=== PATIENT | male | born 1955 | race Caucasian/White ===

== ENCOUNTER 2016-07-31 19:00 | Inpatient (IN) | payer OTHER, MEDICARE ==
[~2016-07-31] VITALS: Ht 188 cm; Wt 106.8 kg
[2016-07-31 19:06] VITALS: BP 135/87; PULSE 107; RESP 22; TEMP 97.9; O2SAT 96
[2016-07-31 19:15] VITALS: O2SAT 94
[2016-07-31] MEDS ORDERED: SODIUM CHLORIDE 0.9% FLUSH 5 ML FLUSH IVF PRN (19:15)
[2016-07-31] MEDS: RESP: ALBUTEROL 2.5 MG/IPRATROPIUM 0.5 MG NEB (SCH) INH (19:36)
--- NOTE | 2016-07-31 19:47 | RADRPT ---
EXAM DATE/TIME: 07/31/2016 19:25 [place] COMPARISON: No previous studies available for comparison. INDICATIONS : Cough and congestion for several days. MEDICAL HISTORY : None. SURGICAL HISTORY : None. ENCOUNTER: Initial ACUITY: 3 days PAIN SCORE: 5/10 LOCATION: Bilateral chest FINDINGS: A single view of the chest demonstrates bibasilar infiltrates. Heart normal in size. The cardiomedias tinal contours are unremarkable. Osseous structures are intact. Bullous changes in the right upper l obe. CONCLUSION: Bibasilar infiltrates. Ralf Hernandes MD on July 31, 2016 at 19:44 Board Certified Radiologist. This report was verified electronically.
[2016-07-31 19:50] LABS: BLOOD GAS BASE EXCESS -4.3 mmol/L (-2-2); BLOOD GAS CARBOXYHEMOGLOBIN 1.9 % (0-4); BLOOD GAS HCO3 20 mmol/L (22-26); BLOOD GAS METHEMOGLOBIN 0.8 % (0-2); BLOOD GAS O2 HGB SATURATION 89 % (90-100); BLOOD GAS OXYGEN CONTENT 20.7 Vol % (12.0-20.0); BLOOD GAS PCO2 37 mmHg (38-42); BLOOD GAS PO2 70 mmHg (61-120); BLOOD GAS TOTAL HGB 16.6 G/DL (12.0-16.0); CRITICAL VALUE YES; DRAW SITE RT RADIAL; LITER FLOW 2 L/M; NUMBER OF ARTERIAL PUNCTURES 1; OXYGEN DEVICE NASAL CANNULA; STAT YES; TEMP CORR TO 98.6; ULNAR PULSE PRESENT
[2016-07-31 19:51] LABS: AUTOMATED NEUTROPHIL # 6.5 TH/MM3 (1.8-7.7); BASOPHIL # 0.2 TH/MM3 (0-0.2); BASOPHIL % 0.9 % (0.0-2.0); EOSINOPHIL # 2.2 TH/MM3 (0-0.4); LYMPHOCYTE # 6.2 TH/MM3 (1.0-4.8); MEAN CELL VOLUME 96.1 FL (80.0-100.0); MEAN CORPUSCULAR HEMOGLOBIN 32.5 PG (27.0-34.0); MEAN CORPUSCULAR HGB CONC 33.9 % (32.0-36.0); MONO % 10.3 % (0.0-8.0); NEUT % 38.8 % (16.0-70.0); PLATELET COUNT 282 TH/MM3 (150-450); RED CELL DISTRIBUTION WIDTH 13.7 % (11.6-17.2); WHITE BLOOD COUNT 16.8 TH/MM3 (4.0-11.0)
[2016-07-31 19:52] LABS: HEMO FLAGS AUTO DIFF
[2016-07-31 20:01] LABS: PROTHROMBIN TIME - PATIENT 10.5 SEC (9.8-11.6)
[2016-07-31 20:37] LABS: ANION GAP 10 MEQ/L (5-15); BICARBONATE 24.5 MEQ/L (21.0-32.0); BLOOD UREA NITROGEN 11 MG/DL (7-18); CHLORIDE 107 MEQ/L (98-107); GLOMERULAR FILTRATION RATE 68 ML/MIN (>89); MAGNESIUM 2.7 MG/DL (1.5-2.5); POTASSIUM 3.8 MEQ/L (3.5-5.1); SODIUM (NA) 141 MEQ/L (136-145)
[2016-07-31 20:38] LABS: BANDS 4 % (0-6); BASOPHILS 1 % (0-2); EOSINOPHILS 18 % (0-4); METAMYELOCYTES 1 % (0-1); NEUTROPHIL # MANUAL DIFF 7.4 TH/MM3 (1.8-7.7); PLATELET ESTIMATE SMEAR NORMAL (NORMAL); PLATELET MORPHOLOGY NORMAL (NORMAL); POLYS (SEG NEUTROPHILS) 39 % (16-70); SCAN/DIFF FINAL DIFF MANUAL; WBC DIFF SAMPLE 100
[2016-07-31] MEDS ORDERED: cefTRIAXone INJ 1,000 MG in SODIUM CHLORIDE 0.9% INJ 100 ML IV ONE (20:45)
[2016-07-31] MEDS ORDERED: AZITHROMYCIN INJ 500 MG in SODIUM CHLOR 0.9% 250 ML INJ 250 ML IV ONE (20:45)
[2016-07-31] MEDS: RESP: ALBUTEROL 2.5 MG/3 ML NEB (SCH) INH (20:48)
[2016-07-31 21:00] VITALS: BP 165/66; PULSE 100; RESP 16; TEMP 98.6; O2SAT 94
--- NOTE | 2016-07-31 21:19 | PD ---
HPI Chief Complaint: Respiratory Distress Time Seen by Provider: 19:08 Travel History International Travel<30 days: No Contact w/Intl Traveler<30days: No Traveled to known affect area: No History of Present Illness HPI 61-year-old male came to the emergency room brought by EMS with shortness of breath, wheezing and hypoxia. Patient has been sick for past 2 weeks and has been progressively worsening. He is a heavy smoker although he says he does not inhale smoke. Patient says for past 2 weeks he's been using his inhaler constantly and finished 50 vials of nebulizer. As per laboratory clerk his oxygen saturation was in the 80s. They gave him 3 albuterol, IV Solu-Medrol, subcutaneous epi and IV magnesium. With all this he has been feeling little better but oxygen saturation is in the high 80s to low 90s with 2 L of oxygen via nasal cannula. [facility] Past Medical History Narrative Medical List of his past medical history as reviewed from the nursing note. COPD: Yes Diminished Hearing: No Tetanus Vaccination: Unknown Past Surgical History Surgical History: No Previous Surgery Other Surgery: Yes (ABD) Social History Alcohol Use: Yes (WINE OCC) Tobacco Use: No ( PPW) Substance Use: No Allergies-Medications (Allergen,Severity, Reaction): Coded Allergies: No Known Allergies (Unverified , 07/31/16) Comments No known drug allergies. Reported Meds & Prescriptions Reported Meds & Active Scripts Active Narrative Medication Awaiting for the nurse to do medical reconciliation. Review of Systems Except as stated in HPI: all other systems reviewed are Neg Physical Exam Narrative GENERAL: Awake, alert, anxious, moderate distress SKIN: Warm and dry. HEAD: Atraumatic. Normocephalic. EYES: Pupils equal and round. No scleral icterus. No injection or drainage. ENT: No nasal bleeding or discharge. Mucous membranes pink and moist. NECK: Trachea midline. No JVD. CARDIOVASCULAR: Regular rate and rhythm. No murmur appreciated. RESPIRATORY: No accessory muscle use. Decreased air entry with bilateral end expiratory wheeze GASTROINTESTINAL: Abdomen soft, non-tender, nondistended. Hepatic and splenic margins not palpable. MUSCULOSKELETAL: No obvious deformities. No clubbing. No cyanosis. No edema. NEUROLOGICAL: Awake and alert. No obvious cranial nerve deficits. Motor grossly within normal limits. Normal speech. PSYCHIATRIC: Appropriate mood and affect; insight and judgment normal. Data Data Last Documented VS Vital Signs Date Time Temp Pulse Resp B/P Pulse Ox O2 Delivery O2 Flow Rate FiO2 07/31/16 21:00 98.6 100 16 165/66 94 Nasal Cannula 2 Orders Complete Blood Count With Diff (07/31/16 19:12) Basic Metabolic Panel (Bmp) (07/31/16 19:12) B-Type Natriuretic Peptide (07/31/16 19:12) Prothrombin Time / Inr (Pt) (07/31/16 19:12) Magnesium (Mg) (07/31/16 19:12) Troponin I (07/31/16 19:12) Arterial Blood Gas (Abg) (07/31/16 19:12) Iv Access Insert/Monitor (07/31/16 19:12) Electrocardiogram (07/31/16 19:12) Ecg Monitoring (07/31/16 19:12) Oximetry (07/31/16 19:12) Oxygen Administration (07/31/16 19:12) Chest, Single Ap (07/31/16 19:12) Sodium Chloride 0.9% Flush (Ns Flush) (07/31/16 19:15) Albuterol-Ipratropium Neb (Duoneb Neb) (07/31/16 19:15) Lactic Acid (07/31/16 20:36) Blood Culture (07/31/16 20:36) Azithromycin Inj (Zithromax Inj) (07/31/16 20:45) Ceftriaxone Inj (Rocephin Inj) (07/31/16 20:45) Albuterol Neb (Albuterol Neb) (07/31/16 20:45) Diet Heart Healthy (08/01/16 Breakfast) Admit Order (Ed Use Only) (07/31/16 21:44) Labs Laboratory Tests Test 07/31/16 07/31/16 07/31/16 17:43 19:15 21:00 Blood Gas Puncture Site RT RADIAL Blood Gas Patient Temperature 98.6 Blood Gas HCO3 20 mmol/L Blood Gas Base Excess -4.3 mmol/L Blood Gas Oxygen Saturation 89 % Arterial Blood pH 7.36 Arterial Blood Partial 37 mmHg Pressure CO2 Arterial Blood Partial 70 mmHg Pressure O2 Arterial Blood Oxygen Content 20.7 Vol % Arterial Blood 1.9 % Carboxyhemoglobin Arterial Blood Methemoglobin 0.8 % Blood Gas Hemoglobin 16.6 G/DL Oxygen Delivery Device NASAL CANNULA Blood Gas Liter Flow 2 L/M White Blood Count 16.8 TH/MM3 Red Blood Count 5.00 MIL/MM3 Hemoglobin 16.3 GM/DL Hematocrit 48.0 % Mean Corpuscular Volume 96.1 FL Mean Corpuscular Hemoglobin 32.5 PG Mean Corpuscular Hemoglobin 33.9 % Concent Red Cell Distribution Width 13.7 % Platelet Count 282 TH/MM3 Mean Platelet Volume 7.8 FL Neutrophils (%) (Auto) 38.8 % Lymphocytes (%) (Auto) 37.0 % Monocytes (%) (Auto) 10.3 % Eosinophils (%) (Auto) 13.0 % Basophils (%) (Auto) 0.9 % Neutrophils # (Auto) 6.5 TH/MM3 Lymphocytes # (Auto) 6.2 TH/MM3 Monocytes # (Auto) 1.7 TH/MM3 Eosinophils # (Auto) 2.2 TH/MM3 Basophils # (Auto) 0.2 TH/MM3 CBC Comment AUTO DIFF Differential Total Cells 100 Counted Neutrophils % (Manual) 39 % Band Neutrophils % 4 % Lymphocytes % 33 % Monocytes % 4 % Eosinophils % 18 % Basophils % 1 % Neutrophils # (Manual) 7.4 TH/MM3 Metamyelocytes 1 % Differential Comment FINAL DIFF MANUAL Platelet Estimate NORMAL Platelet Morphology Comment NORMAL Red Cell Morphology Comment NORMAL Prothrombin Time 10.5 SEC Prothromb Time International 1.0 RATIO Ratio Sodium Level 141 MEQ/L Potassium Level 3.8 MEQ/L Chloride Level 107 MEQ/L Carbon Dioxide Level 24.5 MEQ/L Anion Gap 10 MEQ/L Blood Urea Nitrogen 11 MG/DL Creatinine 1.10 MG/DL Estimat Glomerular Filtration 68 ML/MIN Rate Random Glucose 101 MG/DL Calcium Level 8.3 MG/DL Magnesium Level 2.7 MG/DL Troponin I LESS THAN 0.02 NG/ML B-Type Natriuretic Peptide 16 PG/ML Lactic Acid Level 2.6 mmol/L [facility] Medical Decision Making Medical Screen Exam Complete: Yes Emergency Medical Condition: Yes Medical Record Reviewed: Yes Interpretation(s) Twelve-lead EKG was reviewed by me. Sinus rhythm, normal axis, nonspecific ST- T wave changes. Heart rate of 91 bpm. Differential Diagnosis COPD exacerbation, congestive heart failure, pneumonia, bronchitis Narrative Course 9:17 PM blood test results are back. Patient has leukocytosis and chest x-ray is read as bibasilar infiltrate. I have ordered lactic acid and blood culture and given the patient IV Rocephin and IV Zithromax. Wet gas shows hypoxia and his oxygen saturation was 90% on 2 L. I've bumped it up to 4 L and he saturating 94-95%. Patient continues to have end expiratory wheeze. I initially gave him 3 albuterol and I have ordered 2 more albuterol nebulizers. Patient should be admitted given his hypoxia, pneumonia and status asthmaticus. Procedures EKG Prior to Arrival: No Diagnosis Primary Impression: Respiratory distress Additional Impressions: Acute exacerbation of chronic obstructive pulmonary disease (COPD) Pneumonia Qualified Code: J18.9 - Pneumonia of both lower lobes due to infectious organism Hypoxia Admitting Information Admitting Physician Requests: Admit Mayuri Mace MD Jul 31, 2016 21:19
[2016-07-31] MEDS ORDERED: BISACODYL 10 MG SUPP PR PRN (22:00)
[2016-07-31] MEDS ORDERED: SENNOSIDES 8.6 MG TAB PO PRN (22:00)
[2016-07-31] MEDS ORDERED: TEMAZEPAM 15 MG CAP PO PRN (22:00)
[2016-07-31] MEDS ORDERED: ONDANSETRON HCL 4 MG/2 ML VIAL IVP PRN (22:00)
[2016-07-31] MEDS ORDERED: PROCHLORPERAZINE 25 MG SUPP PR PRN (22:00)
[2016-07-31] MEDS ORDERED: MAGNESIUM HYDROXIDE SUSP 30 ML CUP PO PRN (22:00)
[2016-07-31] MEDS ORDERED: SODIUM CHLORIDE 0.9% FLUSH 5 ML FLUSH FLUSH PRN (22:00)
[2016-07-31] MEDS ORDERED: ACETAMINOPHEN 325 MG TAB PO PRN (22:00)
--- NOTE | 2016-07-31 22:41 | HHI.HP ---
[facility] Unknown Admission Diagnosis COPD exacerbation with status asthmaticus, pneumonia, hypoxia Diagnoses: Chief Complaint: wheezing, sob, cough, fevers Travel History International Travel<30 Days: No Contact w/Intl Traveler <30 Da: No Traveled to Known Affected Are: No History of Present Illness 61 yo male with PMH of tobaccoism, COPD with exacerbations every year never intubated who came to the ED with c/o sob. Says he has been using albuterol over the last 3 days every hour during the day without much improvement. He complaints of productive cough of whitish/yellow sputum, associated wheezing and sob. Has chest pain with cough. No diaphoresis, nausea, vomiting. Denies n/v /d/c. Thinks he has fevers. Review of Systems Constitutional: COMPLAINS OF: Fever, DENIES: Chills, Change in appetite Endocrine: DENIES: Heat/cold intolerance Eyes: DENIES: Blurred vision, Eye pain Ears, nose, mouth, throat: DENIES: Tinnitus, Hearing loss, Vertigo, Nasal discharge, Oral lesions, Throat pain, Hoarseness, Ear Pain, Running Nose, Epistaxis, Sinus Pain, Toothache, Odynophagia Respiratory: COMPLAINS OF: Cough, Wheezing, Sputum production, Shortness of breath, DENIES: Apneas, Snoring, Hemoptysis Cardiovascular: DENIES: Chest pain, Palpitations, Syncope, Dyspnea on Exertion , PND, Lower Extremity Edema, Orthopnea, Claudication Gastrointestinal: DENIES: Abdominal pain, Black stools, Bloody stools, Constipation, Diarrhea, Nausea, Vomiting, Difficulty Swallowing, Anorexia Genitourinary: DENIES: Urgency, Hematuria, Dysuria Musculoskeletal: COMPLAINS OF: Joint pain Integumentary: DENIES: Rash Neurologic: DENIES: Abnormal gait, Headache, Localized weakness, Paresthesias, Seizures, Speech Problems, Tremor, Poor Balance Psychiatric: DENIES: Anxiety, Depression Past Family Social History Past Medical History COPD gets exacerbations every year, no h/o intubation Past Surgical History Had right and left arm surgeries, has hardware in left arm, also h/o appendicitis Allergies: Coded Allergies: No Known Allergies (Unverified , 07/31/16) Family History Says family is healthy , says his father was a havy smoker for 81 years and never had problems, he at 93 ya Family is healthy. Social History Smoked 2-3PPD x 30 years , cut down to 1 PPD recently. Occasionally 1 glass of wine with dinner. No illicit drug use. Physical Exam Vital Signs Vital Signs Date Time Temp Pulse Resp B/P Pulse Ox O2 Delivery O2 Flow Rate FiO2 07/31/16 19:15 Nasal Cannula 2 07/31/16 19:10 107 22 94 Nasal Cannula 2 07/31/16 19:06 97.9 107 22 135/87 96 Physical Exam GENERAL: This is a well-nourished, well-developed patient, in no apparent distress. SKIN: No rashes, ecchymoses or lesions. Cool and dry. HEAD: Atraumatic. Normocephalic. No temporal or scalp tenderness. EYES: Pupils equal round and reactive. Extraocular motions intact. No scleral icterus. No injection or drainage. ENT: Nose without bleeding, purulent drainage or septal hematoma. Throat without erythema, tonsillar hypertrophy or exudate. Uvula midline. Airway patent. NECK: Trachea midline. No JVD or lymphadenopathy. Supple, nontender, no meningeal signs. CARDIOVASCULAR: Regular rate and rhythm without murmurs, gallops, or rubs. RESPIRATORY: Coughing, with sob, wheezes, +bronchial sounds. No rales, or rhonchi. GASTROINTESTINAL: Abdomen soft, non-tender, nondistended. No hepato-splenomegaly , or palpable masses. No guarding. MUSCULOSKELETAL: Extremities without clubbing, cyanosis, or edema. No joint tenderness, effusion, or edema noted. No calf tenderness. Negative Homans sign bilaterally. NEUROLOGICAL: Awake and alert. Cranial nerves II through XII intact. Motor and sensory grossly within normal limits. Five out of 5 muscle strength in all muscle groups. Normal speech. Laboratory Laboratory Tests Test 07/31/16 07/31/16 07/31/16 17:43 19:15 21:00 Blood Gas Puncture Site RT RADIAL Blood Gas Patient Temperature 98.6 Blood Gas HCO3 20 Blood Gas Base Excess -4.3 Blood Gas Oxygen Saturation 89 Arterial Blood pH 7.36 Arterial Blood Partial 37 Pressure CO2 Arterial Blood Partial 70 Pressure O2 Arterial Blood Oxygen Content 20.7 Arterial Blood 1.9 Carboxyhemoglobin Arterial Blood Methemoglobin 0.8 Blood Gas Hemoglobin 16.6 Oxygen Delivery Device NASAL CANNULA Blood Gas Liter Flow 2 White Blood Count 16.8 Red Blood Count 5.00 Hemoglobin 16.3 Hematocrit 48.0 Mean Corpuscular Volume 96.1 Mean Corpuscular Hemoglobin 32.5 Mean Corpuscular Hemoglobin 33.9 Concent Red Cell Distribution Width 13.7 Platelet Count 282 Mean Platelet Volume 7.8 Neutrophils (%) (Auto) 38.8 Lymphocytes (%) (Auto) 37.0 Monocytes (%) (Auto) 10.3 Eosinophils (%) (Auto) 13.0 Basophils (%) (Auto) 0.9 Neutrophils # (Auto) 6.5 Lymphocytes # (Auto) 6.2 Monocytes # (Auto) 1.7 Eosinophils # (Auto) 2.2 Basophils # (Auto) 0.2 CBC Comment AUTO DIFF Differential Total Cells 100 Counted Neutrophils % (Manual) 39 Band Neutrophils % 4 Lymphocytes % 33 Monocytes % 4 Eosinophils % 18 Basophils % 1 Neutrophils # (Manual) 7.4 Metamyelocytes 1 Differential Comment FINAL DIFF MANUAL Platelet Estimate NORMAL Platelet Morphology Comment NORMAL Red Cell Morphology Comment NORMAL Prothrombin Time 10.5 Prothromb Time International 1.0 Ratio Sodium Level 141 Potassium Level 3.8 Chloride Level 107 Carbon Dioxide Level 24.5 Anion Gap 10 Blood Urea Nitrogen 11 Creatinine 1.10 Estimat Glomerular Filtration 68 Rate Random Glucose 101 Calcium Level 8.3 Magnesium Level 2.7 Troponin I LESS THAN 0.02 B-Type Natriuretic Peptide 16 Lactic Acid Level 2.6 Date/Time Procedure Status Source Growth 07/31/16 21:00 Aerobic Blood Culture Received Blood Peripheral Pending 07/31/16 21:00 Anaerobic Blood Culture Received Blood Peripheral Pending Result Diagram: 07/31/16191407/31/161914 Assessment and Plan Assessment and Plan Sepsis leukocytosis, tachycardia on admission with bibasilar Pneumonia COPD exacerbation Acute respiratory failure requiring O2 Start abx azithro and rocephin IV blood cx . sputum cx , check influ A/B , pneumococcal and legionella Ag Start solumedrol IV , duonebs scheduled and as need taper as tolerated O2 suppoer keep O2 sat > 92% CXR reviewed bibasilar infiltrates Chronic med problems appears at baseline Code Status full Discussed Condition With patient, nurse, ED physician Dr Mace Physician Certification 2 Midnight Certification Type: Admission for Inpatient Services Order for Inpatient Services The services are ordered in accordance with Medicare regulations or non- Medicare payer requirements, as applicable. In the case of services not specified as inpatient-only, they are appropriately provided as inpatient services in accordance with the 2-midnight benchmark. Estimated LOS (days): 3 days is the estimated time the patient will need to remain in the hospital, assuming treatment plan goals are met and no additional complications. Post-Hospital Plan: Home Nessa Tillman MD Jul 31, 2016 22:41
[2016-07-31] MEDS: ENOXAPARIN SODIUM 40 MG/0.4 ML SYRINGE SQ SCH (23:23)
[2016-07-31] MEDS: methylPREDNISolone SOD SUCC 40 MG/1 ML VIAL IV PUSH SCH (23:23)
[2016-08-01] VITALS (23 sets, daily range): BP systolic 111–141; BP diastolic 57–88; PULSE 82–120; RESP 16–22; TEMP 98.4–98.8; O2SAT 92–95
[2016-08-01] MEDS: RESP: ALBUTEROL 2.5 MG/IPRATROPIUM 0.5 MG NEB (PRN) NEB ×2 (00:33→03:35)
[2016-08-01] MEDS ORDERED: methylPREDNISolone SOD SUCC 125 MG/2 ML VIAL IV PUSH ONE (03:00)
[2016-08-01] MEDS: SODIUM CHLOR 0.9% 1000 ML INJ 1,000 ML IV SCH ×2 (03:25→15:02)
[2016-08-01] MEDS: RESP: ACETYLCYSTEINE 20% 30 ML NEB NEB SCH ×5 (03:35→21:19)
[2016-08-01 04:36] LABS: AUTOMATED NEUTROPHIL # 10.1 TH/MM3 (1.8-7.7); BASOPHIL % 0.3 % (0.0-2.0); EOSINOPHIL % 0.1 % (0.0-4.0); HEMO FLAGS DIFF FINAL; LYMPH % 5.2 % (9.0-44.0); LYMPHOCYTE # 0.6 TH/MM3 (1.0-4.8); MEAN CELL VOLUME 96.3 FL (80.0-100.0); MEAN CORPUSCULAR HEMOGLOBIN 32.7 PG (27.0-34.0); MONO % 1.5 % (0.0-8.0); NEUT % 92.9 % (16.0-70.0); PLATELET COUNT 236 TH/MM3 (150-450); RED BLOOD COUNT 4.77 MIL/MM3 (4.50-5.90); RED CELL DISTRIBUTION WIDTH 13.7 % (11.6-17.2); WHITE BLOOD COUNT 10.9 TH/MM3 (4.0-11.0)
[2016-08-01 04:59] LABS: BICARBONATE 20.8 MEQ/L (21.0-32.0)
--- NOTE | 2016-08-01 05:25 | EKG ---
Date Performed: 07/31/2016 Time Performed: 19:53:10 PTAGE: 61 years EKG: Sinus rhythm NORMAL ECG NO PREVIOUS TRACING DOCTOR: Blu Senior Interpretating Date/Time 08/01/2016 05:24:26
[2016-08-01 05:33] LABS: LACTIC ACID GHOST NOT REPORTABLE
[2016-08-01] MEDS: methylPREDNISolone SOD SUCC 40 MG/1 ML VIAL IV PUSH SCH ×3 (06:09→17:51)
[2016-08-01] MEDS: RESP: ALBUTEROL 2.5 MG/IPRATROPIUM 0.5 MG NEB (SCH) NEB ×4 (07:56→22:19)
[2016-08-01] MEDS ORDERED: SODIUM CHLOR 0.9% 1000 ML INJ 1,000 ML IV ONE ×2 (08:00→09:00)
[2016-08-01] MEDS: SODIUM CHLORIDE 0.9% FLUSH 5 ML FLUSH FLUSH SCH ×2 (09:00→21:00)
[2016-08-01] MEDS ORDERED: SODIUM CHLOR 0.9% 1000 ML INJ 700 ML IV ONE (09:00)
[2016-08-01] MEDS: guaiFENesin E.R. 600 MG TAB PO SCH ×2 (09:28→21:06)
[2016-08-01] MEDS ORDERED: VENTAER INH (09:46)
[2016-08-01] MEDS ORDERED: ALBU0.08 NEB (09:46)
[2016-08-01] MEDS ORDERED: ADVA500A INH (09:46)
[2016-08-01] MEDS ORDERED: HYDR-3533 PO (09:46)
--- NOTE | 2016-08-01 17:52 | HHI.PR ---
Subjective Remarks Patient states that his breathing has improved since coming to the hospital. He does report bilateral itchy rash in the shoulder and upper chest area even prior to coming the hospital. He denies any active chest pain. He has not had any chills or fever. Objective Vitals Vital Signs Date Time Temp Pulse Resp B/P Pulse Ox O2 Delivery O2 Flow Rate FiO2 08/01/16 17:02 104 08/01/16 16:57 94 4.00 08/01/16 16:17 103 08/01/16 15:08 82 08/01/16 15:05 98.8 96 16 122/71 93 08/01/16 14:00 102 08/01/16 13:00 111 08/01/16 12:30 98.5 107 18 132/71 94 08/01/16 12:04 120 08/01/16 11:41 103 18 140/88 93 4 08/01/16 09:28 103 17 141/67 93 Nasal Cannula 4 08/01/16 07:57 92 Nasal Cannula 4.00 08/01/16 06:09 98.4 101 18 119/69 95 Nasal Cannula 2 08/01/16 03:25 100 18 127/63 95 Nasal Cannula 2 08/01/16 02:56 106 22 111/57 95 Nasal Cannula 2 08/01/16 00:36 93 Nasal Cannula 3.50 07/31/16 21:00 98.6 100 16 165/66 94 Nasal Cannula 2 07/31/16 19:15 94 Nasal Cannula 2.00 07/31/16 19:15 Nasal Cannula 2 07/31/16 19:10 107 22 94 Nasal Cannula 2 07/31/16 19:06 97.9 107 22 135/87 96 I/O 07/31/16 07/31/16 07/31/16 08/01/16 08/01/16 08/01/16 07:00 15:00 23:00 07:00 15:00 23:00 Intake Total 849 ml Output Total 775 ml Balance 74 ml Intake Oral 480 ml IV Total 369 ml Output Urine Total 775 ml Result Diagram: 08/01/16 0354 08/01/16 0354 Objective Remarks GENERAL: This is a well-nourished, well-developed patient, in no apparent distress. CARDIOVASCULAR: Regular rate and rhythm RESPIRATORY: Bibasilar crackles GASTROINTESTINAL: Abdomen soft, non-tender,nondistended. Normal active bowel sounds MUSCULOSKELETAL: Extremities without clubbing, cyanosis, trace edema NEURO: Alert & Oriented x4 to person, place, time, situation. Moves all ext x4 Skin: Areas of reddish papular macules bilateral shoulders and upper bilateral chest areas A/P Assessment and Plan Severe Sepsis with leukocytosis, tachycardia on admission with bibasilar community-acquired Pneumonia likely as this seems to be trending down. Will add dose of vancomycin secondary to peak lactic acid COPD exacerbationcontinue with bronchodilators as needed, continue with Solu- Medrol IV and taper Acute respiratory failure due to bibasilar community-acquired pneumonia COPD exacerbation requiring [id number] with oxygen support follow-up with results of blood culture, influenza A/B negative , pneumococcal and legionella Ag is currently pending Nonspecific dermatitissuspect possible contactinitiate Zyrtec. Patient had a previous dose of Solu-Medrol emergency room. Benadryl lotion to the area. DVT prophylaxis Lovenox. Discharge Planning Home when medically stable. Alyse Ahumada MD Aug 01, 2016 17:52
[2016-08-01] MEDS ORDERED: Vancomycin Consult Pharmacy 1 EA XX SCH (18:00)
[2016-08-01] MEDS ORDERED: VANCOMYCIN INJ 1,000 MG in SODIUM CHLOR 0.9% 250 ML INJ 250 ML IV SCH (18:00)
[2016-08-01] MEDS ORDERED: CETIRIZINE HCL 10 MG TAB PO ONE (19:00)
[2016-08-01] MEDS: ENOXAPARIN SODIUM 40 MG/0.4 ML SYRINGE SQ SCH (21:05)
[2016-08-01] MEDS: VANCOMYCIN 1,500 MG/NS 500 ML IV SCH ×2 (21:05)
[2016-08-01] MEDS: diphenhydrAMINE HCL 2%/ZINC ACETATE 0.1% CREAM 30 APPLIC/30 GM TUBE TOPICAL SCH (21:06)
[2016-08-01] MEDS: cefTRIAXone INJ 1,000 MG in SODIUM CHLORIDE 0.9% INJ 100 ML IV SCH (22:00)
[2016-08-01] MEDS ORDERED: AZITHROMYCIN INJ 500 MG in SODIUM CHLOR 0.9% 250 ML INJ 250 ML IV SCH (22:00)
[2016-08-02] VITALS (27 sets, daily range): BP systolic 127–149; BP diastolic 73–87; PULSE 71–112; RESP 18–20; TEMP 97.1–98.4; O2SAT 90–95
[2016-08-02] MEDS: methylPREDNISolone SOD SUCC 40 MG/1 ML VIAL IV PUSH SCH ×5 (00:27→23:47)
[2016-08-02] MEDS: RESP: ALBUTEROL 2.5 MG/IPRATROPIUM 0.5 MG NEB (PRN) NEB ×2 (00:40→05:50)
[2016-08-02] MEDS: RESP: ACETYLCYSTEINE 20% 30 ML NEB NEB SCH ×6 (00:40→19:50)
--- NOTE | 2016-08-02 06:51 | RADRPT ---
EXAM DATE/TIME: 08/02/2016 06:28 [facility] COMPARISON: CHEST SINGLE AP, July 31, 2016, 19:25. INDICATIONS : Shortness of breath. MEDICAL HISTORY : None. SURGICAL HISTORY : None. ENCOUNTER: Subsequent ACUITY: 4 - 6 days PAIN SCORE: 7/10 LOCATION: Bilateral chest FINDINGS: One compared to 07/31/16, improved aeration of the lungs. No infiltrate seen. The heart is normal siz e. CONCLUSION: No infiltrate seen. Rajinder Law MD on August 02, 2016 at 6:49 Board Certified Radiologist. This report was verified electronically.
[2016-08-02] MEDS: RESP: ALBUTEROL 2.5 MG/IPRATROPIUM 0.5 MG NEB (SCH) NEB ×4 (08:00→19:50)
[2016-08-02] MEDS: SODIUM CHLOR 0.9% 1000 ML INJ 1,000 ML IV SCH (08:09)
[2016-08-02] MEDS: guaiFENesin E.R. 600 MG TAB PO SCH ×2 (08:09→20:26)
[2016-08-02] MEDS: CETIRIZINE HCL 10 MG TAB PO SCH (08:09)
[2016-08-02] MEDS: SODIUM CHLORIDE 0.9% FLUSH 5 ML FLUSH FLUSH SCH ×2 (08:09→20:26)
[2016-08-02] MEDS: diphenhydrAMINE HCL 2%/ZINC ACETATE 0.1% CREAM 30 APPLIC/30 GM TUBE TOPICAL SCH ×2 (08:10→20:26)
--- NOTE | 2016-08-02 12:35 | HHI.PR ---
Subjective Remarks Patient reports still short of breath however has felt better. Continued to have productive yellow orange phlegm. Reports itchiness of his shoulders and upper chest is improved. Objective Vitals Vital Signs Date Time Temp Pulse Resp B/P Pulse Ox O2 Delivery O2 Flow Rate FiO2 08/02/16 11:38 97.7 98 18 149/75 95 08/02/16 11:38 98 08/02/16 11:38 95 Venturi Mask 08/02/16 11:25 94 Venturi Mask 6.00 40 08/02/16 10:05 91 08/02/16 09:21 75 08/02/16 08:57 98 08/02/16 08:57 97.1 98 20 131/80 93 08/02/16 08:57 93 Venturi Mask 08/02/16 08:03 90 Venturi Mask 6.00 35 08/02/16 05:20 98.4 105 19 140/87 92 08/02/16 05:00 77 08/02/16 04:00 72 08/02/16 03:00 73 08/02/16 02:00 85 08/02/16 01:00 88 08/02/16 00:00 98.4 103 19 127/73 92 08/02/16 00:00 90 3.00 08/02/16 00:00 81 08/01/16 23:00 103 08/01/16 22:19 92 Nasal Cannula 3.00 08/01/16 22:00 93 08/01/16 21:00 92 08/01/16 20:00 96 08/01/16 19:45 93 3.00 08/01/16 19:45 98.4 92 17 124/74 93 08/01/16 19:00 93 08/01/16 18:14 104 08/01/16 17:02 104 08/01/16 16:57 94 4.00 08/01/16 16:17 103 08/01/16 15:08 82 08/01/16 15:05 98.8 96 16 122/71 93 08/01/16 14:00 102 08/01/16 13:00 111 08/01/16 12:30 98.5 107 18 132/71 94 I/O 08/01/16 08/01/16 08/01/16 08/02/16 08/02/16 08/02/16 07:00 15:00 23:00 07:00 15:00 23:00 Intake Total 849 ml 2640 ml Output Total 775 ml 2800 ml Balance 74 ml -160 ml Intake Oral 480 ml 1440 ml IV Total 369 ml 1200 ml Output Urine Total 775 ml 2800 ml Result Diagram: 08/01/16 0354 08/01/16 0354 Other Results Microbiology Date/Time Procedure Status Source Growth 07/31/16 23:15 Influenza Types A,B Antigen ([facility]UCKER) - Final Complete Nasal Washing NEGATIVE FOR FLU A AND B ANTIGEN.... 07/31/16 21:00 Aerobic Blood Culture - Preliminary Resulted Blood Peripheral NO GROWTH IN 2 DAYS 07/31/16 21:00 Anaerobic Blood Culture - Preliminary Resulted Blood Peripheral NO GROWTH IN 2 DAYS Objective Remarks GENERAL: This is a well-nourished, well-developed patient, in no apparent distress. CARDIOVASCULAR: Regular rate and rhythm RESPIRATORY: Diminished breath sounds with few Bibasilar crackles GASTROINTESTINAL: Abdomen soft, non-tender,nondistended. Normal active bowel sounds MUSCULOSKELETAL: Extremities without clubbing, cyanosis, trace edema NEURO: Alert & Oriented x4 to person, place, time, situation. Moves all ext x4 Skin: Areas of reddish papular macules bilateral shoulders and upper bilateral chest areas A/P Problem List: (1) Severe sepsis with acute organ dysfunction ICD Code: A41.9 Status: Acute (2) Acute exacerbation of chronic obstructive pulmonary disease (COPD) ICD Code: J44.1 Status: Acute (3) Pneumonia of both lower lobes ICD Code: J18.9 Status: Acute (4) Acute respiratory failure ICD Code: J96.00 Status: Acute Assessment and Plan 1. Severe Sepsis with leukocytosis, tachycardia on admission with bibasilar community-acquired Pneumonia likely as this seems to be trending down. Will add dose of vancomycin secondary to peak lactic acid, will obtain a sputum culture sensitivity. 2. Acute respiratory failure due to bibasilar community-acquired pneumonia and COPD exacerbation requiring [id number] with oxygen support, patient now on Ventimask and will monitor closely. Continue with bronchodilators as needed, continuously Medrol IV and taper. follow-up with results of blood culture, influenza A/B negative, patient currently on IV Zithromax, Rocephin, and vancomycin; will transition Zithromax to oral today. Await sputum culture and sensitivity. 3. Nonspecific dermatitissuspect possible contactimproved on Zyrtec. Patient had a previous dose of Solu-Medrol emergency room. Benadryl lotion to the area. DVT prophylaxis Lovenox. Discharge Planning Home when medically stable. Problem Qualifiers (1) Acute respiratory failure: Qualified Code: J96.01 - Acute respiratory failure with hypoxia Alyse Ahumada MD Aug 02, 2016 12:35
[2016-08-02] MEDS: VANCOMYCIN 1,500 MG/NS 500 ML IV SCH ×2 (13:44)
[2016-08-02] MEDS: cefTRIAXone INJ 1,000 MG in SODIUM CHLORIDE 0.9% INJ 100 ML IV SCH (20:25)
[2016-08-02] MEDS: ENOXAPARIN SODIUM 40 MG/0.4 ML SYRINGE SQ SCH (20:25)
[2016-08-03] VITALS (29 sets, daily range): BP systolic 119–148; BP diastolic 58–86; PULSE 63–101; RESP 18; TEMP 97.6–98.6; O2SAT 92–95
[2016-08-03] MEDS: RESP: ACETYLCYSTEINE 20% 30 ML NEB NEB SCH ×4 (00:15→12:00)
[2016-08-03] MEDS: RESP: ALBUTEROL 2.5 MG/IPRATROPIUM 0.5 MG NEB (PRN) NEB ×2 (00:15→05:44)
[2016-08-03] MEDS: methylPREDNISolone SOD SUCC 40 MG/1 ML VIAL IV PUSH SCH (06:00)
[2016-08-03] MEDS: RESP: ALBUTEROL 2.5 MG/IPRATROPIUM 0.5 MG NEB (SCH) NEB ×4 (07:55→19:26)
[2016-08-03] MEDS: guaiFENesin E.R. 600 MG TAB PO SCH ×2 (08:40→20:45)
[2016-08-03] MEDS: CETIRIZINE HCL 10 MG TAB PO SCH (08:40)
[2016-08-03] MEDS: diphenhydrAMINE HCL 2%/ZINC ACETATE 0.1% CREAM 30 APPLIC/30 GM TUBE TOPICAL SCH ×2 (08:41→20:47)
[2016-08-03] MEDS: SODIUM CHLORIDE 0.9% FLUSH 5 ML FLUSH FLUSH SCH ×2 (08:41→20:46)
[2016-08-03] MEDS: SODIUM CHLOR 0.9% 1000 ML INJ 1,000 ML IV SCH ×2 (08:42→15:15)
[2016-08-03] MEDS: VANCOMYCIN 1,500 MG/NS 500 ML IV SCH ×2 (08:44)
--- NOTE | 2016-08-03 09:56 | HHI.PR ---
Subjective Remarks fu sepsis, pna, copd exacerbation Patient states had 2 episodes of sob today still on ventimask sating 91% denies cp denies fevers/chills Objective Vitals Vital Signs Date Time Temp Pulse Resp B/P Pulse Ox O2 Delivery O2 Flow Rate FiO2 08/03/16 09:00 63 08/03/16 08:35 93 Nasal Cannula 08/03/16 08:31 98.0 97 18 148/86 92 08/03/16 08:00 97 08/03/16 07:55 93 Venturi Mask 6.00 40 08/03/16 07:00 70 08/03/16 05:00 73 08/03/16 04:00 73 08/03/16 03:33 93 Venturi Mask 08/03/16 03:33 97.9 78 18 139/82 93 08/03/16 03:00 80 08/03/16 02:00 70 08/03/16 01:00 73 08/03/16 00:00 98.6 78 18 142/58 93 08/03/16 00:00 93 Venturi Mask 08/03/16 00:00 68 08/02/16 23:00 77 08/02/16 22:00 84 08/02/16 21:00 86 08/02/16 20:00 86 08/02/16 19:52 91 Venturi Mask 40 08/02/16 19:40 93 Venturi Mask 08/02/16 19:39 98.0 97 18 128/87 93 08/02/16 19:00 74 08/02/16 18:02 71 08/02/16 17:09 75 08/02/16 16:20 92 08/02/16 15:29 98.0 88 18 136/85 93 08/02/16 15:29 93 Venturi Mask 08/02/16 15:29 88 08/02/16 14:00 91 08/02/16 13:06 85 08/02/16 12:27 112 08/02/16 11:38 97.7 98 18 149/75 95 08/02/16 11:38 98 08/02/16 11:38 95 Venturi Mask 08/02/16 11:25 94 Venturi Mask 6.00 40 08/02/16 10:05 91 I/O 08/02/16 08/02/16 08/02/16 08/03/167/17 1/7/17 07:00 15:00 23:00 07:00 15:00 23:00 Intake Total 2640 ml 2460 ml 2320 ml Output Total 2800 ml 1400 ml 3275 ml Balance -160 ml 1060 ml -955 ml Intake Oral 1440 ml 960 ml 1320 ml IV Total 1200 ml 1500 ml 1000 ml Output Urine Total 2800 ml 1400 ml 3275 ml # Bowel Movements 0 1 Result Diagram: 08/01/16 0354 08/03/16 0525 Imaging Last Impressions Chest X-Ray 08/02/16 0632 Signed Impressions: Service Date/Time: Tuesday, August 02, 2016 06:28 - CONCLUSION: No infiltrate seen. Rajinder Law MD Objective Remarks GENERAL: This is a well-nourished, well-developed patient, in no apparent distress. CARDIOVASCULAR: Regular rate and rhythm RESPIRATORY: Diminished breath sounds with few Bibasilar crackles, expiratory wheezing when coughing. GASTROINTESTINAL: Abdomen soft, non-tender,nondistended. Normal active bowel sounds MUSCULOSKELETAL: Extremities without clubbing, cyanosis, trace edema NEURO: Alert & Oriented x4 to person, place, time, situation. Moves all ext x4 Skin: Areas of reddish papular macules bilateral shoulders and upper bilateral chest areas Medications and IVs Current Medications Medications (Trade) Dose Ordered Sig/Sarah Route Start Time Stop Time Status Last Admin (NS Flush) 2 ml UNSCH PRN IVF 07/31/16 19:15 (NS Flush) 2 ml UNSCH PRN FLUSH 07/31/16 22:00 (NS Flush) 2 ml BID FLUSH 08/01/16 09:00 (Tylenol) 650 mg Q4H PRN PO 07/31/16 22:00 (Zofran Inj) 4 mg Q6H PRN IVP 07/31/16 22:00 (Compazine Supp) 25 mg Q12H PRN [place] 07/31/16 22:00 (Dulcolax Supp) 10 mg DAILY PRN [place] 07/31/16 22:00 (Milk Of Magnesia Liq) 30 ml Q12H PRN PO 07/31/16 22:00 (Senokot) 17.2 mg Q12H PRN PO 07/31/16 22:00 (Restoril) 15 mg HS PRN PO 07/31/16 22:00 (Lovenox Inj) 40 mg Q24H SQ 07/31/16 22:00 08/02/16 20:25 Methylprednisolone Sodium Succinate 40 mg 40 mg Q6HR IV PUSH 08/01/16 00:00 08/03/16 06:00 (Rocephin Inj/NS Inj) 100 ml @ 200 mls/hr Q24H IV 08/01/16 22:00 08/02/16 20:25 Guaifenesin 600 mg 600 mg BID PO 08/01/16 09:00 08/03/16 08:40 Sodium Chloride 1,000 ml @ 100 mls/hr Q10H IV 08/01/16 03:15 08/03/16 08:42 Pharmacy Profile Note 0 ml @ 0 mls/hr UNSCH XX 08/01/16 18:00 (Vancomycin Inj/ NS 500 ml Inj) 515 ml @ 257.5 mls/ hr Q18H IV 08/01/16 20:00 08/03/16 08:44 Miscellaneous Information SPECIFIC LAB TO BE ... ONCE ONCE XX 08/04/16 03:45 08/04/16 03:46 (ZyrTEC) 10 mg DAILY PO 08/02/16 09:00 08/03/16 08:40 (Benadryl 2% Cream) 1 applic BID TOPICAL 08/01/16 21:00 08/03/16 08:41 (Zithromax) 500 mg DAILY PO 08/03/16 21:00 Urinary Catheter: No Vascular Central Line Catheter: No A/P Problem List: (1) Severe sepsis with acute organ dysfunction ICD Code: A41.9 Status: Acute Plan: Patient presented with leukocytosis, tachycardia, hypoxemia requiring oxygen administration. Started on broad-spectrum IV antibiotics including IV Rocephin, IV azithromycin , and IV vancomycin Blood cultures negative to date Sputum cultures pending Sepsis syndrome symptoms improving last WBC count down to 10,000 from 16,000 (2) Acute exacerbation of chronic obstructive pulmonary disease (COPD) ICD Code: J44.1 Status: Acute Plan: I will discontinue IV Rocephin and IV azithromycin and start the patient on Levaquin to cover for pseudomonas. Follow-up sputum culture. Flu a and B-. Incentive spirometry I will Rx inhaled steroids Consult pulmonary. Patient continues to be very restricted, I will increase Solu-Medrol to 60 mg IV every 6 hours. (3) Pneumonia of both lower lobes ICD Code: J18.9 Status: Acute Plan: Antibiotics as above. Continue supplemental oxygen to keep oxygen saturation more than 92% Follow-up sputum cultures. Check urine Legionella antigen and strep pneumococcal antigen. (4) Acute hypoxemic respiratory failure ICD Code: J96.01 Status: Acute Plan: Continue supplemental o2 to keepp o2 sat >92%. Continue bronchodilators. Wean oxygen as tolerated. (5) Smoking addiction ICD Code: F17.200 Status: Acute Plan: Advised on smoking cessation, will Rx nicotine patch. Assessment and Plan GI prophylaxis: Lovenox subcutaneously. DVT prophylaxis: Will add Protonix since patient is on IV steroids and came with sepsis. Discharge Planning Continue to monitor in the medical floor for now. Discharge pending clinical improvement. Problem Qualifiers (1) Pneumonia of both lower lobes: Qualified Code: J18.9 - Pneumonia of both lower lobes due to infectious organism Bernard Vallecillo MD Aug 03, 2016 09:56
[2016-08-03] MEDS ORDERED: guaiFENesin/DEXTROMETHORPHAN 200 MG/20 MG/10 ML CUP PO PRN (10:15)
[2016-08-03 10:48] LABS: AUTOMATED NEUTROPHIL # 20.4 TH/MM3 (1.8-7.7); BASOPHIL % 0.1 % (0.0-2.0); HEMATOCRIT 48.6 % (39.0-51.0); HEMO FLAGS DIFF FINAL; LYMPH % 2.9 % (9.0-44.0); LYMPHOCYTE # 0.6 TH/MM3 (1.0-4.8); MEAN CELL VOLUME 97.2 FL (80.0-100.0); MEAN CORPUSCULAR HEMOGLOBIN 32.7 PG (27.0-34.0); MEAN CORPUSCULAR HGB CONC 33.7 % (32.0-36.0); MONO % 4.3 % (0.0-8.0); NEUT % 92.7 % (16.0-70.0); PLATELET COUNT 261 TH/MM3 (150-450)
[2016-08-03] MEDS: LEVOFLOXACIN 750 MG PREMIX INJ 150 ML IV SCH (10:53)
[2016-08-03 11:22] LABS: ALKALINE PHOSPHATASE 74 U/L (45-117); ALT (GPT) 38 U/L (12-78); ANION GAP 5 MEQ/L (5-15); AST (GOT) 36 U/L (15-37); BICARBONATE 28.7 MEQ/L (21.0-32.0); BLOOD UREA NITROGEN 15 MG/DL (7-18); CHLORIDE 106 MEQ/L (98-107); GLOMERULAR FILTRATION RATE 74 ML/MIN (>89); MAGNESIUM 2.3 MG/DL (1.5-2.5); SODIUM (NA) 140 MEQ/L (136-145); TOTAL BILIRUBIN ADULT 0.4 MG/DL (0.2-1.0)
[2016-08-03] MEDS: BUDESONIDE-FORMOTEROL 160/4.5 MCG INHALER INH SCH ×2 (11:28→20:45)
[2016-08-03] MEDS ORDERED: methylPREDNISolone SOD SUCC 125 MG/2 ML VIAL IV PUSH SCH (12:00)
[2016-08-03] MEDS: PANTOPRAZOLE SOD 20 MG DELAYED RELEASE TAB PO SCH (13:27)
--- NOTE | 2016-08-03 17:17 | MB ---
cc: Storm CHAKRABORTY DATE OF CONSULTATION: 08/03/2016 HISTORY Mr. De La Vega is a 61-year-old chronic tobacco user, has smoked up to two to three packs of cigarettes a day, currently smoking about a pack per day who presents with increasing shortness of breath, cough, congestion and initially bibasilar infiltrates. His wheezing has persisted, I am asked to see him for further evaluation and management. The patient is very comfortable at rest, says that he is feeling better and has an episode similar to this about once a year. He understands that he needs to quit smoking. He had a notable elevation in his eosinophil level on presentation at 13%. I asked him if he had ever been diagnosed with asthma and he has not to his knowledge. On steroids the level quickly dropped to zero. He has maintained an elevated white count that is on high dose steroids and at this point his cultures have been negative in blood, influenza antigens negative, a sputum is pending, Gram stain did reveal gram-negative rods. Lactic acid has also been elevated at 2.6. Liver functions normal. Blood glucose again on high dose steroids is elevated at 302. The patient has a pretty unremarkable prior history. Denies any prior cardiovascular history. No history of ischemia or myocardial infarction. He has had no recent chest pain. He has had right and left arm surgeries and a history appendicitis. ALLERGIES NONE KNOWN. SOCIAL HISTORY He is originally from [facility], he has lived in this country since 1995, was in [place] before moving here several years ago. Drinks occasional wine. He is , lives alone with his dog. REVIEW OF SYSTEMS He has had no chest pain, no hemoptysis. No increased swelling in his legs. No history of DVT or thromboembolism. No recent trauma or long travel. No orthopnea or PND. No vomiting, abdominal pain or diarrhea. Not aware of fever specifically. MEDICATIONS Medications are reviewed in the EMR. PHYSICAL EXAMINATION VITAL SIGNS: 98 degrees, pulse is 90, blood pressure 120/70, nasal cannula saturation 93-95%. HEENT: Sclerae anicteric. Mucous membranes are moist. NECK: Neck veins are flat. LUNGS: Lungs are diminished throughout, reasonably clear. Minimal wheezing. No audible congestion. No basilar rales. HEART: Regular rhythm. No harsh murmur. ABDOMEN: Abdomen is soft. EXTREMITIES: No peripheral edema or calf tenderness. No cyanosis or clubbing. LABORATORY DATA As noted above. ASSESSMENT AND PLAN Mr. De La Vega is a longstanding smoker, did have eosinophilia on presentation, makes you wonder if he has an underlying asthmatic component as well but probably surely has COPD. It does not sound like he has been thoroughly evaluated in the past we will see if we can get a bedside spirometry to get some assessment of the severity of obstruction. Try to obtain a sputum in light of the admission pulmonary infiltrates. We will continue his bronchodilators as he improves, reduce his steroid dose and then also begin to mobilize him and increase his activity. Further diagnostic and/or therapeutic intervention will depend on his ongoing clinical course. Thank you for asking me to see him with you in consultation. R. MD DIANA Crandall/CHAYA /12:39 PM /4:37 PM
[2016-08-03] MEDS ORDERED: GLUCAGON 1 MG/ML VIAL OTHER PRN (17:30)
[2016-08-03] MEDS ORDERED: DEXTROSE 50% IN WATER 50 ML VIAL(D50) IV PUSH PRN (17:30)
[2016-08-03] MEDS: ENOXAPARIN SODIUM 40 MG/0.4 ML SYRINGE SQ SCH (20:45)
[2016-08-03] MEDS: INSULIN ASPART SUPPLEMENTAL SCALE SQ SCH (20:45)
[2016-08-03] MEDS: methylPREDNISolone SOD SUCC 125 MG/2 ML VIAL IV PUSH SCH (20:45)
[2016-08-03] MEDS ORDERED: AZITHROMYCIN 250 MG TAB PO SCH (21:00)
[2016-08-04] VITALS (28 sets, daily range): BP systolic 102–130; BP diastolic 54–91; PULSE 55–98; RESP 18; TEMP 97.9–98; O2SAT 90–94
[2016-08-04] MEDS: VANCOMYCIN 1,500 MG/NS 500 ML IV SCH ×2 (03:15)
[2016-08-04] MEDS: methylPREDNISolone SOD SUCC 125 MG/2 ML VIAL IV PUSH SCH ×3 (03:30→21:31)
[2016-08-04 03:44] LABS: BASOPHIL % 0.2 % (0.0-2.0); HEMATOCRIT 44.4 % (39.0-51.0); HEMO FLAGS DIFF FINAL; LYMPH % 5.1 % (9.0-44.0); MEAN CELL VOLUME 95.4 FL (80.0-100.0); MEAN CORPUSCULAR HEMOGLOBIN 32.4 PG (27.0-34.0); MONO % 5.1 % (0.0-8.0); NEUT % 89.6 % (16.0-70.0); PLATELET COUNT 219 TH/MM3 (150-450); RED BLOOD COUNT 4.65 MIL/MM3 (4.50-5.90); RED CELL DISTRIBUTION WIDTH 14.1 % (11.6-17.2); WHITE BLOOD COUNT 20.1 TH/MM3 (4.0-11.0)
[2016-08-04] MEDS ORDERED: PHARMACY ORDERED LAB XX ONE (03:45)
[2016-08-04 04:22] LABS: ALKALINE PHOSPHATASE 57 U/L (45-117); ALT (GPT) 45 U/L (12-78); ANION GAP 8 MEQ/L (5-15); AST (GOT) 34 U/L (15-37); BICARBONATE 25.5 MEQ/L (21.0-32.0); BLOOD UREA NITROGEN 17 MG/DL (7-18); CHLORIDE 109 MEQ/L (98-107); GLOMERULAR FILTRATION RATE 81 ML/MIN (>89); MAGNESIUM 2.4 MG/DL (1.5-2.5); POTASSIUM 4.7 MEQ/L (3.5-5.1); SODIUM (NA) 142 MEQ/L (136-145); TOTAL BILIRUBIN ADULT 0.4 MG/DL (0.2-1.0)
[2016-08-04] MEDS: INSULIN ASPART SUPPLEMENTAL SCALE SQ SCH ×4 (06:00→21:31)
[2016-08-04] MEDS: RESP: ALBUTEROL 2.5 MG/IPRATROPIUM 0.5 MG NEB (SCH) NEB ×3 (07:33→19:04)
[2016-08-04] MEDS: PANTOPRAZOLE SOD 20 MG DELAYED RELEASE TAB PO SCH (08:11)
[2016-08-04] MEDS: BUDESONIDE-FORMOTEROL 160/4.5 MCG INHALER INH SCH ×2 (08:11→21:00)
[2016-08-04] MEDS: guaiFENesin E.R. 600 MG TAB PO SCH ×2 (08:11→21:31)
[2016-08-04] MEDS: CETIRIZINE HCL 10 MG TAB PO SCH (08:11)
[2016-08-04] MEDS: SODIUM CHLORIDE 0.9% FLUSH 5 ML FLUSH FLUSH SCH ×2 (08:12→21:30)
[2016-08-04] MEDS: diphenhydrAMINE HCL 2%/ZINC ACETATE 0.1% CREAM 30 APPLIC/30 GM TUBE TOPICAL SCH ×2 (08:12→21:30)
[2016-08-04] MEDS: SODIUM CHLOR 0.9% 1000 ML INJ 1,000 ML IV SCH (08:12)
--- NOTE | 2016-08-04 09:47 | HHI.PR ---
Subjective Remarks Patient requiring more oxygen today - up to 6 liters on venti mask denies cp states breathing is better denies fevers/chills denies diarrhea no rash Objective Vitals Vital Signs Date Time Temp Pulse Resp B/P Pulse Ox O2 Delivery O2 Flow Rate FiO2 08/04/16 08:07 97.9 86 18 117/91 94 08/04/16 08:06 94 Venturi Mask 08/04/16 08:02 93 Venturi Mask 6.00 40 08/04/16 08:00 63 08/04/16 07:00 80 08/04/16 06:00 55 08/04/16 05:00 57 08/04/16 04:00 63 08/04/16 03:33 98.0 58 18 125/79 93 08/04/16 03:33 93 Venturi Mask 08/04/16 03:00 80 08/04/16 02:00 56 08/04/16 01:00 84 08/04/16 00:00 70 08/03/16 23:01 97.6 98 18 129/83 93 08/03/16 23:01 93 Venturi Mask 08/03/16 23:00 88 08/03/16 22:00 73 08/03/16 21:00 70 08/03/16 20:00 75 08/03/16 19:30 97.6 101 18 134/83 93 08/03/16 19:30 93 Venturi Mask 08/03/16 19:29 95 Venturi Mask 6.00 40 08/03/16 19:00 79 08/03/16 18:00 96 08/03/16 17:00 79 08/03/16 16:01 87 08/03/16 15:13 94 Venturi Mask 08/03/16 15:00 98.5 90 18 121/76 95 08/03/16 15:00 90 08/03/16 14:00 89 08/03/16 13:00 90 08/03/16 12:00 86 08/03/16 11:11 95 Venturi Mask 08/03/16 11:00 90 08/03/16 11:00 98.3 90 18 119/69 95 08/03/16 10:00 90 I/O 08/03/16 08/03/16 08/03/16 08/04/16 08/04/16 08/04/16 07:00 15:00 23:00 07:00 15:00 23:00 Intake Total 2320 ml 2300 ml 240 ml Output Total 3275 ml 1800 ml 2450 ml Balance -955 ml 500 ml -2210 ml Intake Oral 1320 ml 1300 ml 240 ml IV Total 1000 ml 1000 ml Output Urine Total 3275 ml 1800 ml 2450 ml # Bowel Movements 1 1 Result Diagram: 08/04/16 0320 08/04/16 0320 Imaging Last Impressions Chest X-Ray 08/02/16 0632 Signed Impressions: Service Date/Time: Tuesday, August 02, 2016 06:28 - CONCLUSION: No infiltrate seen. Rajinder Law MD Objective Remarks GENERAL: This is a well-nourished, well-developed patient, in no apparent distress. CARDIOVASCULAR: Regular rate and rhythm RESPIRATORY: Diminished breath sounds with few Bibasilar crackles, expiratory wheezing when coughing. GASTROINTESTINAL: Abdomen soft, non-tender,nondistended. Normal active bowel sounds MUSCULOSKELETAL: Extremities without clubbing, cyanosis, trace edema NEURO: Alert & Oriented x4 to person, place, time, situation. Moves all ext x4 Skin: Areas of reddish papular macules bilateral shoulders and upper bilateral chest areas Procedures none Medications and IVs Current Medications Medications (Trade) Dose Ordered Sig/Sarah Route Start Time Stop Time Status Last Admin (NS Flush) 2 ml UNSCH PRN IVF 07/31/16 19:15 (NS Flush) 2 ml UNSCH PRN FLUSH 07/31/16 22:00 (NS Flush) 2 ml BID FLUSH 08/01/16 09:00 (Tylenol) 650 mg Q4H PRN PO 07/31/16 22:00 (Zofran Inj) 4 mg Q6H PRN IVP 07/31/16 22:00 (Compazine Supp) 25 mg Q12H PRN [place] 07/31/16 22:00 (Dulcolax Supp) 10 mg DAILY PRN [place] 07/31/16 22:00 (Milk Of Magnesia Liq) 30 ml Q12H PRN PO 07/31/16 22:00 (Senokot) 17.2 mg Q12H PRN PO 07/31/16 22:00 (Restoril) 15 mg HS PRN PO 07/31/16 22:00 (Lovenox Inj) 40 mg Q24H SQ 07/31/16 22:00 08/03/16 20:45 Guaifenesin 600 mg 600 mg BID PO 08/01/16 09:00 08/04/16 08:11 (Vancomycin Consult Pharmacy) 0 ml @ 0 mls/hr UNSCH XX 08/01/16 18:00 (ZyrTEC) 10 mg DAILY PO 08/02/16 09:00 08/04/16 08:11 Diphenhydramine HCl 1 applic 1 applic BID TOPICAL 08/01/16 21:00 08/04/16 08:12 (Levaquin 750 Mg Premix Inj) 150 ml @ 100 mls/hr Q24H IV 08/03/16 11:00 08/04/16 10:46 (Symbicort 160-4.5 Inh) 2 puff Q12HR INH 08/03/16 10:15 08/04/16 08:11 (Robitussin Dm 200-20 Mg/10 ml Liq) 10 ml Q4H PRN PO 08/03/16 10:15 (SoluMEDROL INJ) 60 mg Q8H IV PUSH 08/03/16 20:00 08/04/16 10:58 (Protonix) 20 mg DAILY PO 08/03/16 12:45 08/04/16 08:11 (D50w (Vial) Inj) 25 ml UNSCH PRN IV PUSH 08/03/16 17:30 Glucagon 1 mg 1 mg UNSCH PRN OTHER 08/03/16 17:30 (Vancomycin Inj/ NS 500 ml Inj) 515 ml @ 257.5 mls/ hr Q12H IV 08/04/16 14:00 Miscellaneous Information SPECIFIC LAB TO BE DRAWN:VANCOMYCIN TROUGH DATE TO... ONCE ONCE XX 08/06/16 13:45 08/06/16 13:46 A/P Problem List: (1) Severe sepsis with acute organ dysfunction ICD Code: A41.9 Status: Acute Plan: Patient presented with leukocytosis, tachycardia, hypoxemia requiring oxygen administration. Started on broad-spectrum IV antibiotics including IV Rocephin, IV azithromycin , and IV vancomycin Blood cultures negative to date Sputum cultures pending Sepsis syndrome symptoms improving last WBC count down to 10,000 from 16,000 WBC increased however patient on IV steroids. No fevers. (2) Acute exacerbation of chronic obstructive pulmonary disease (COPD) ICD Code: J44.1 Status: Acute Plan: I will discontinue IV Rocephin and IV azithromycin and start the patient on Levaquin to cover for pseudomonas. Follow-up sputum culture. Flu a and B-. Incentive spirometry I will Rx inhaled steroids Consult pulmonary - recommendations appreciated Continue IV steroids as per pulmonary - Currently on 60 mg IV Q 8 hrs. (3) Pneumonia of both lower lobes ICD Code: J18.9 Status: Acute Plan: Antibiotics as above. Continue supplemental oxygen to keep oxygen saturation more than 92% Follow-up sputum cultures. Check urine Legionella antigen and strep pneumococcal antigen. (4) Acute hypoxemic respiratory failure ICD Code: J96.01 Status: Acute Plan: Continue supplemental o2 to keepp o2 sat >92%. Continue bronchodilators. Wean oxygen as tolerated. I will start patient on Lasix since patient requiring more oxygen. (5) Smoking addiction ICD Code: F17.200 Status: Acute Plan: Advised on smoking cessation, will Rx nicotine patch. Assessment and Plan GI prophylaxis: Lovenox subcutaneously. DVT prophylaxis: Will add Protonix since patient is on IV steroids and came with sepsis. Discharge Planning Continue to monitor in the medical floor for now. Discharge pending clinical improvement. Problem Qualifiers (1) Pneumonia of both lower lobes: Qualified Code: J18.9 - Pneumonia of both lower lobes due to infectious organism Bernard Vallecillo MD Aug 04, 2016 09:47
[2016-08-04] MEDS: LEVOFLOXACIN 750 MG PREMIX INJ 150 ML IV SCH (10:46)
[2016-08-04 12:45] LABS: HEMOGLOBIN A1a 1.3 %; HEMOGLOBIN A1b 0.8 %; HEMOGLOBIN Ao 82.5 %; HEMOGLOBIN F 1.3 %; HEMOGLOBIN LA1C 3.1 %; HEMOGLOBIN P3 4.4 %
[2016-08-04] MEDS: FUROSEMIDE 40 MG TAB PO SCH (13:12)
[2016-08-04] MEDS ORDERED: VANCOMYCIN 1,500 MG/NS 500 ML IV SCH ×2 (14:00)
[2016-08-04] MEDS: RESP: ALBUTEROL 2.5 MG/IPRATROPIUM 0.5 MG NEB (PRN) NEB (15:34)
[2016-08-04] MEDS: ENOXAPARIN SODIUM 40 MG/0.4 ML SYRINGE SQ SCH (21:30)
[2016-08-05] VITALS (22 sets, daily range): BP systolic 113–140; BP diastolic 74–88; PULSE 60–101; RESP 18–20; TEMP 97.8–98.5; O2SAT 91–96
[2016-08-05] MEDS: INSULIN ASPART SUPPLEMENTAL SCALE SQ SCH ×3 (04:56→17:16)
[2016-08-05 06:24] LABS: AUTOMATED NEUTROPHIL # 15.1 TH/MM3 (1.8-7.7); EOSINOPHIL % 0.1 % (0.0-4.0); HEMATOCRIT 45.1 % (39.0-51.0); LYMPH % 7.4 % (9.0-44.0); LYMPHOCYTE # 1.3 TH/MM3 (1.0-4.8); MEAN CELL VOLUME 95.2 FL (80.0-100.0); MEAN CORPUSCULAR HEMOGLOBIN 33.1 PG (27.0-34.0); MEAN CORPUSCULAR HGB CONC 34.7 % (32.0-36.0); MONO % 7.3 % (0.0-8.0); NEUT % 85.2 % (16.0-70.0); PLATELET COUNT 224 TH/MM3 (150-450); RED BLOOD COUNT 4.74 MIL/MM3 (4.50-5.90); RED CELL DISTRIBUTION WIDTH 13.4 % (11.6-17.2); WHITE BLOOD COUNT 17.7 TH/MM3 (4.0-11.0)
[2016-08-05 06:49] LABS: HEMO FLAGS AUTO DIFF
[2016-08-05 06:51] LABS: ALT (GPT) 69 U/L (12-78); ANION GAP 6 MEQ/L (5-15); AST (GOT) 44 U/L (15-37); BICARBONATE 27.1 MEQ/L (21.0-32.0); BLOOD UREA NITROGEN 24 MG/DL (7-18); CHLORIDE 103 MEQ/L (98-107); GLOMERULAR FILTRATION RATE 74 ML/MIN (>89); POTASSIUM 4.2 MEQ/L (3.5-5.1); SODIUM (NA) 136 MEQ/L (136-145)
[2016-08-05 06:53] LABS: ALKALINE PHOSPHATASE 69 U/L (45-117); TOTAL BILIRUBIN ADULT 0.3 MG/DL (0.2-1.0)
[2016-08-05] MEDS: RESP: ALBUTEROL 2.5 MG/IPRATROPIUM 0.5 MG NEB (SCH) NEB ×2 (07:24→13:29)
[2016-08-05 08:01] LABS: PLATELET ESTIMATE SMEAR NORMAL (NORMAL); PLATELET MORPHOLOGY NORMAL (NORMAL); SCAN/DIFF AUTO DIFF CONFIRMED
[2016-08-05] MEDS: guaiFENesin E.R. 600 MG TAB PO SCH (08:39)
[2016-08-05] MEDS: PANTOPRAZOLE SOD 20 MG DELAYED RELEASE TAB PO SCH (08:39)
[2016-08-05] MEDS: methylPREDNISolone SOD SUCC 125 MG/2 ML VIAL IV PUSH SCH (08:39)
[2016-08-05] MEDS: FUROSEMIDE 40 MG TAB PO SCH (08:40)
[2016-08-05] MEDS: CETIRIZINE HCL 10 MG TAB PO SCH (08:40)
[2016-08-05] MEDS: diphenhydrAMINE HCL 2%/ZINC ACETATE 0.1% CREAM 30 APPLIC/30 GM TUBE TOPICAL SCH (08:41)
[2016-08-05] MEDS: BUDESONIDE-FORMOTEROL 160/4.5 MCG INHALER INH SCH (08:41)
[2016-08-05] MEDS: SODIUM CHLORIDE 0.9% FLUSH 5 ML FLUSH FLUSH SCH (08:42)
--- NOTE | 2016-08-05 09:58 | HHI.PR ---
Subjective Remarks Patient states breathing is much improved denies cp/ denies fevers/chills cough is improving eating well Objective Vitals Vital Signs Date Time Temp Pulse Resp B/P Pulse Ox O2 Delivery O2 Flow Rate FiO2 08/05/16 07:58 3.00 08/05/16 07:45 91 Nasal Cannula 3.00 08/05/16 07:45 60 08/05/16 07:45 98.0 62 20 131/77 91 08/05/16 07:24 93 Nasal Cannula 3.50 08/05/16 06:00 77 08/05/16 05:00 72 08/05/16 04:10 95 Nasal Cannula 3.00 08/05/16 04:00 70 08/05/16 04:00 98.0 68 18 139/79 96 08/05/16 03:00 77 08/05/16 02:00 70 08/05/16 01:00 77 08/05/16 00:10 95 Nasal Cannula 3.00 08/05/16 00:00 98.0 98 18 130/74 95 08/05/16 00:00 81 08/04/16 23:00 81 08/04/16 22:00 70 08/04/16 21:00 70 08/04/16 20:00 85 08/04/16 20:00 97.9 84 18 130/76 92 08/04/16 19:20 93 Nasal Cannula 3.00 08/04/16 19:00 81 08/04/16 18:00 98 08/04/16 17:00 95 08/04/16 16:00 96 08/04/16 15:34 90 Nasal Cannula 5.00 08/04/16 15:00 98.0 97 18 102/54 94 08/04/16 15:00 95 08/04/16 15:00 93 Nasal Cannula 3.00 08/04/16 14:00 90 08/04/16 13:00 87 08/04/16 12:00 90 08/04/16 11:00 94 Venturi Mask 08/04/16 11:00 85 08/04/16 11:00 98.0 89 18 119/78 94 08/04/16 10:00 75 I/O 08/04/16 08/04/16 08/04/16 08/05/16 08/05/16 08/05/16 07:00 15:00 23:00 07:00 15:00 23:00 Intake Total 240 ml 1260 ml 240 ml Output Total 2450 ml 2550 ml 1850 ml Balance -2210 ml -1290 ml -1610 ml Intake Oral 240 ml 960 ml 240 ml IV Total 300 ml Output Urine Total 2450 ml 2550 ml 1850 ml # Bowel Movements 1 0 Result Diagram: 08/05/16 0545 08/05/16 0545 Imaging Last Impressions Chest X-Ray 08/02/16 0632 Signed Impressions: Service Date/Time: Tuesday, August 02, 2016 06:28 - CONCLUSION: No infiltrate seen. Rajinder Law MD Objective Remarks GENERAL: This is a well-nourished, well-developed patient, in no apparent distress. CARDIOVASCULAR: Regular rate and rhythm RESPIRATORY: Diminished breath sounds with few Bibasilar crackles, expiratory wheezing when coughing. GASTROINTESTINAL: Abdomen soft, non-tender,nondistended. Normal active bowel sounds MUSCULOSKELETAL: Extremities without clubbing, cyanosis, trace edema NEURO: Alert & Oriented x4 to person, place, time, situation. Moves all ext x4 Skin: Areas of reddish papular macules bilateral shoulders and upper bilateral chest areas Procedures none Medications and IVs Current Medications Medications (Trade) Dose Ordered Sig/Sarah Route Start Time Stop Time Status Last Admin (NS Flush) 2 ml UNSCH PRN IVF 07/31/16 19:15 (NS Flush) 2 ml UNSCH PRN FLUSH 07/31/16 22:00 (NS Flush) 2 ml BID FLUSH 08/01/16 09:00 08/05/16 08:42 (Tylenol) 650 mg Q4H PRN PO 07/31/16 22:00 (Zofran Inj) 4 mg Q6H PRN IVP 07/31/16 22:00 (Compazine Supp) 25 mg Q12H PRN [place] 07/31/16 22:00 (Dulcolax Supp) 10 mg DAILY PRN [place] 07/31/16 22:00 (Milk Of Magnesia Liq) 30 ml Q12H PRN PO 07/31/16 22:00 (Senokot) 17.2 mg Q12H PRN PO 07/31/16 22:00 (Restoril) 15 mg HS PRN PO 07/31/16 22:00 (Lovenox Inj) 40 mg Q24H SQ 07/31/16 22:00 08/04/16 21:30 (Mucinex Er) 600 mg BID PO 08/01/16 09:00 08/05/16 08:39 (ZyrTEC) 10 mg DAILY PO 08/02/16 09:00 08/05/16 08:40 Diphenhydramine HCl 1 applic 1 applic BID TOPICAL 08/01/16 21:00 08/05/16 08:41 (Levaquin 750 Mg Premix Inj) 150 ml @ 100 mls/hr Q24H IV 08/03/16 11:00 08/04/16 10:46 (Symbicort 160-4.5 Inh) 2 puff Q12HR INH 08/03/16 10:15 08/05/16 08:41 (Robitussin Dm 200-20 Mg/10 ml Liq) 10 ml Q4H PRN PO 08/03/16 10:15 (Protonix) 20 mg DAILY PO 08/03/16 12:45 08/05/16 08:39 (D50w (Vial) Inj) 25 ml UNSCH PRN IV PUSH 08/03/16 17:30 (Glucagon Inj) 1 mg UNSCH PRN OTHER 08/03/16 17:30 (Lasix) 40 mg DAILY PO 08/04/16 13:00 08/05/16 08:40 (SoluMEDROL INJ) 40 mg BID IV PUSH 08/04/16 21:00 08/05/16 08:39 A/P Problem List: (1) Severe sepsis with acute organ dysfunction ICD Code: A41.9 Status: Acute Plan: Patient presented with leukocytosis, tachycardia, hypoxemia requiring oxygen administration. Started on broad-spectrum IV antibiotics including IV Rocephin, IV azithromycin , and IV vancomycin Blood cultures negative to date Mycoplasma negative Legionella and pneumococcal antigen negative Sputum cultures pending Sepsis syndrome symptoms improving last WBC count down to 10,000 from 16,000 WBC increased however patient on IV steroids. No fevers. (2) Acute exacerbation of chronic obstructive pulmonary disease (COPD) ICD Code: J44.1 Status: Acute Plan: I will discontinue IV Rocephin and IV azithromycin and start the patient on Levaquin to cover for pseudomonas. Follow-up sputum culture. Flu a and B-. Incentive spirometry I will Rx inhaled steroids Consult pulmonary - recommendations appreciated Continue IV steroids as per pulmonary - Currently on 40 mg IV Q 12 hrs. I will order a Home oxygen respiratory walk test. (3) Pneumonia of both lower lobes ICD Code: J18.9 Status: Acute Plan: Antibiotics as above. Continue supplemental oxygen to keep oxygen saturation more than 92% Follow-up sputum cultures ---> no growth. Check urine Legionella antigen and strep pneumococcal antigen ---> negative (4) Acute hypoxemic respiratory failure ICD Code: J96.01 Status: Acute Plan: Continue supplemental o2 to keepp o2 sat >92%. Continue bronchodilators. Wean oxygen as tolerated. Continue Lasix Patient requiring less oxygen, down to 3 liters nasal canula. (5) Smoking addiction ICD Code: F17.200 Status: Acute Plan: Advised on smoking cessation, will Rx nicotine patch. Assessment and Plan GI prophylaxis: Lovenox subcutaneously. DVT prophylaxis: Continue Protonix since patient is on IV steroids and came with sepsis. Discharge Planning Possible discharge pending respiratory walk test. Problem Qualifiers (1) Pneumonia of both lower lobes: Qualified Code: J18.9 - Pneumonia of both lower lobes due to infectious organism Bernard Vallecillo MD Aug 05, 2016 09:58
--- NOTE | 2016-08-05 09:59 | HHI.FF ---
Face to Face Verification Diagnosis: (1) Acute hypoxemic respiratory failure (2) Acute exacerbation of chronic obstructive pulmonary disease (COPD) (3) Pneumonia of both lower lobes Physical Therapy Order: Improve ambulation, Strength and gait training Home Health Nursing Order: Signs/symptoms of disease process Oxygen administration education Nursing assessment with vital signs I have seen patient Lisa De La Vega on 08/05/16. My clinical findings support the need for the requested home health care services because: Patient has SOB Deconditioned w/ increased weakness Limited ability to care for self Need for psychosocial assistance Impaired cognition/judgement High risk of falls I certify that my clinical findings support that this patient is homebound because: Hx COPD- exertion dyspnea/weakness Unsteady gait/balance Unsafe to leave home unassisted Need for psychosocial assistance Unable to use public transportation Bernard Vallecillo MD Aug 05, 2016 09:59
[2016-08-05] MEDS: LEVOFLOXACIN 750 MG PREMIX INJ 150 ML IV SCH (12:40)
[2016-08-05] MEDS ORDERED: LEVOFLOXACIN 750 MG PREMIX INJ 150 ML IV SCH (13:00)
[2016-08-05] MEDS ORDERED: SYMB160A INH (13:04)
[2016-08-05] MEDS ORDERED: PRED20 PO (13:04)
[2016-08-05] MEDS ORDERED: LEVO500T3 PO (13:04)
[2016-08-05] MEDS ORDERED: OXYGENTANK NAS.CANULA (13:05)
--- NOTE | 2016-08-05 13:10 | HHI.DS ---
Discharge Summary Admission Date Jul 31, 2016 at 21:46 Discharge Date: Aug 05, 2016 Admitting Diagnosis COPD exacerbation with status asthmaticus, pneumonia, hypoxia (1) Severe sepsis with acute organ dysfunction ICD Code: A41.9 Diagnosis: Principal (2) Acute exacerbation of chronic obstructive pulmonary disease (COPD) ICD Code: J44.1 Diagnosis: Principal (3) Pneumonia of both lower lobes ICD Code: J18.9 Diagnosis: Principal (4) Acute hypoxemic respiratory failure ICD Code: J96.01 Diagnosis: Principal (5) Smoking addiction ICD Code: F17.200 Diagnosis: Principal Procedures none Brief History - From Admission 61 yo male with PMH of tobaccoism, COPD with exacerbations every year never intubated who came to the ED with c/o sob. Says he has been using albuterol over the last 3 days every hour during the day without much improvement. He complaints of productive cough of whitish/yellow sputum, associated wheezing and sob. Has chest pain with cough. No diaphoresis, nausea, vomiting. Denies n/v /d/c. Thinks he has fevers. CBC/BMP: 08/05/16 0545 08/05/16 0545 Significant Findings Laboratory Tests Test 08/03/16 08/03/16 08/04/16 08/05/16 05:25 10:41 03:20 05:45 Estimat Glomerular Filtration 84 ML/MIN (>89) 74 ML/MIN (>89) 81 ML/MIN (>89) 74 ML/MIN (>89) Rate White Blood Count 22.0 TH/MM3 20.1 TH/MM3 17.7 TH/MM3 (4.0-11.0) (4.0-11.0) (4.0-11.0) Neutrophils (%) (Auto) 92.7 % 89.6 % 85.2 % (16.0-70.0) (16.0-70.0) (16.0-70.0) Lymphocytes (%) (Auto) 2.9 % 5.1 % 7.4 % (9.0-44.0) (9.0-44.0) (9.0-44.0) Neutrophils # (Auto) 20.4 TH/MM3 18.0 TH/MM3 15.1 TH/MM3 (1.8-7.7) (1.8-7.7) (1.8-7.7) Lymphocytes # (Auto) 0.6 TH/MM3 (1.0-4.8) Random Glucose 302 MG/DL 169 MG/DL 211 MG/DL (74-106) (74-106) (74-106) Lactic Acid Level 2.4 mmol/L (0.4-2.0) Calcium Level 8.2 MG/DL 8.1 MG/DL (8.5-10.1) (8.5-10.1) Albumin 2.9 GM/DL 2.6 GM/DL 2.5 GM/DL (3.4-5.0) (3.4-5.0) (3.4-5.0) Monocytes # (Auto) 1.0 TH/MM3 1.3 TH/MM3 (0-0.9) (0-0.9) Chloride Level 109 MEQ/L (98-107) Total Protein 5.9 GM/DL 5.8 GM/DL (6.4-8.2) (6.4-8.2) Blood Urea Nitrogen 24 MG/DL (7-18) Aspartate Amino Transf 44 U/L (15-37) (AST/SGOT) Imaging Last Impressions Chest X-Ray 08/02/16 0632 Signed Impressions: Service Date/Time: Tuesday, August 02, 2016 06:28 - CONCLUSION: No infiltrate seen. Rajinder Law MD PE at Discharge GENERAL: This is a well-nourished, well-developed patient, in no apparent distress. CARDIOVASCULAR: Regular rate and rhythm RESPIRATORY: Diminished breath sounds with few Bibasilar crackles, expiratory wheezing when coughing. GASTROINTESTINAL: Abdomen soft, non-tender,nondistended. Normal active bowel sounds MUSCULOSKELETAL: Extremities without clubbing, cyanosis, trace edema NEURO: Alert & Oriented x4 to person, place, time, situation. Moves all ext x4 Skin: Areas of reddish papular macules bilateral shoulders and upper bilateral chest areas Hospital Course (1) Severe sepsis with acute organ dysfunction Patient presented with leukocytosis, tachycardia, hypoxemia requiring oxygen administration. Started on broad-spectrum IV antibiotics including IV Rocephin, IV azithromycin , and IV vancomycin Blood cultures negative to date Mycoplasma negative Legionella and pneumococcal antigen negative Sputum cultures pending Sepsis syndrome symptoms improving last WBC count down to 10,000 from 16,000 WBC increased however patient on IV steroids. No fevers. (2) Acute exacerbation of chronic obstructive pulmonary disease (COPD) Treated w IV Rocephin and IV azithromycin and start the patient on Levaquin to cover for pseudomonas. Follow-up sputum culture. Flu a and B-. Incentive spirometry I will Rx inhaled steroids Consult pulmonary - recommendations appreciated Continue IV steroids as per pulmonary - Currently on 40 mg IV Q 12 hrs. I will order a Home oxygen respiratory walk test. (3) Pneumonia of both lower lobes Antibiotics as above. Continue supplemental oxygen to keep oxygen saturation more than 92% Follow-up sputum cultures ---> no growth. Check urine Legionella antigen and strep pneumococcal antigen ---> negative (4) Acute hypoxemic respiratory failure Continue supplemental o2 to keepp o2 sat >92%. Continue bronchodilators. Wean oxygen as tolerated. Continue Lasix Patient requiring less oxygen, down to 3 liters nasal canula. (5) Smoking addiction Advised on smoking cessation, will Rx nicotine patch. GI prophylaxis: Lovenox subcutaneously. DVT prophylaxis: Continue Protonix since patient is on IV steroids and came with sepsis. Pt Condition on Discharge: Stable Discharge Disposition: Disch w/ Home Health Serv Discharge Time: > 30 minutes Discharge Instructions DIET: Follow Instructions for: Diabetic Diet Activities you can perform: Regular-No Restrictions Activities to Avoid: Prolonged Standing, Strenuous Activity New Medications: Levofloxacin (Levofloxacin) 500 Mg Tab 500 MG PO DAILY Infection #7 Ref 0 TAB Oxygen tank (Oxygen tank) 1 Ea Tank 2 LITER AKANKSHA.CANULA CONTINUOUS Oxygen Concentrator Portable Gaseous 2 L/min via Nasal Cannula Continuous For 99 months HYPOXEMIA PREVENTION #3 CYLINDER Prednisone (Prednisone) 20 Mg Tab 40 MG PO DIRECTED Shortness of Breath #10 Ref 0 TAB Budesonide-Formoterol Inh (Symbicort Inh) 160-4.5 Mcg/Act Aero 2 PUFF INH Q12HR Shortness of Breath #1 INHALER Continued Medications: Albuterol 18 GM Inh (Ventolin Hfa 18 GM Inh) 90 Mcg/Act Aer 2 PUFF INH Q4-6H PRN SHORTNESS OF BREATH #1 Ref 0 INHALER Albuterol Neb (Albuterol Neb) 2.5 Mg/3 Ml Neb 2.5 MG NEB Q4-6H PRN SHORTNESS OF BREATH #60 Ref 0 NEBULE Hydrocodone-Acetaminophen (Lortab) 5-325 Mg Tab 1 TAB PO TID PRN PAIN Ref 0 TAB Discontinued Medications: Fluticasone-Salmeterol Inh (Advair Diskus Inh) 500-50 Mcg/Blist Aer 1 PUFF INH BID Rinse mouth after use. #1 Ref 0 INHALER Bernard Vallecillo MD Aug 05, 2016 13:10
[2016-08-06] MEDS ORDERED: predniSONE 20 MG TAB PO SCH (09:00)
[2016-08-06] MEDS ORDERED: LEVOFLOXACIN 750 MG PREMIX INJ 150 ML IV SCH (13:00)
[2016-08-06] MEDS ORDERED: PHARMACY ORDERED LAB XX ONE (13:45)
[2016-08-07 12:56] LABS: MYCOPLASMA PNEUMONIAE S BY IFA Negative (Negative)
--- NOTE | 2016-08-09 08:50 | RSPPFT ---
DATE OF PROCEDURE: 08/05/16 COMMENTS: VOLUMES DYNAMIC: FVC and FEV1 normal. FLOWS: FEV1% and FEF 25-75 normal. IMPRESSION: This is a normal simple spirometry.
== END 2016-08-05 19:15 | disposition home health service (06) | DRG 871 ==
LOC: NEPE 19:00 → NEDA 21:46 → NEDH 08-01 02:28 → HCIN 08-01 11:50
PROVIDERS: ADMIT Hospitalist; ATTEND Hospitalist
DX: A41.9 Sepsis, unspecified organism (principal); J96.01 Acute respiratory failure with hypoxia; J45.902 Unspecified asthma with status asthmaticus; J18.9 Pneumonia, unspecified organism; J44.1 Chronic obstructive pulmonary disease with (acute) exacerbation; R65.20 Severe sepsis without septic shock; F17.210 Nicotine dependence, cigarettes, uncomplicated; L30.9 Dermatitis, unspecified
CPT/HCPCS: 36600; 71010; 80048; 80053; 80202; 82565; 82805; 82948; 83036; 83605; 83735; 83880; 84100; 84484; 85007; 85025; 85027; 85610; 86738; 87040; 87070; 87077; 87186; 87205; 87449; 87804; 93005; 94060; 94150; 94620; 94640; 94664; J0456; J0696; J1650; J1815; J1956; J2920; J2930; J3370; J7030; J7040; J7050; J7608; J7613

== ENCOUNTER 2017-11-27 23:59 | Emergency (ER) | payer OTHER ==
[~2017-11-27] VITALS: Ht 185.4 cm; Wt 78.0 kg
[~2017-11-27 23:59] MED LIST: ALBU0.08 NEB; HYDR-3533 PO; LEVO500T3 PO; OXYGENTANK NAS.CANULA; PRED20 PO; SYMB160A INH; VENTAER INH
[2017-11-28 00:07] VITALS: BP 119/67; PULSE 112; RESP 18; TEMP 99.1; O2SAT 94
[2017-11-28] MEDS ORDERED: RESP: ALBUTEROL 2.5 MG/IPRATROPIUM 0.5 MG NEB (SCH) NEB ONE ×2 (00:15→01:45)
[2017-11-28] MEDS ORDERED: DEXAMETHASONE SOD PHOS 20 MG/5 ML VIAL IV PUSH ONE (00:15)
[2017-11-28 00:35] LABS: AUTOMATED NEUTROPHIL # 8.7 TH/MM3 (1.8-7.7); BASOPHIL # 0.2 TH/MM3 (0-0.2); BASOPHIL % 1.2 % (0.0-2.0); EOSINOPHIL # 1.6 TH/MM3 (0-0.4); EOSINOPHIL % 10.3 % (0.0-4.0); HEMATOCRIT 47.2 % (39.0-51.0); HEMOGLOBIN 16.3 GM/DL (13.0-17.0); LYMPH % 23.4 % (9.0-44.0); LYMPHOCYTE # 3.7 TH/MM3 (1.0-4.8); MEAN CELL VOLUME 102.7 FL (80.0-100.0); MEAN CORPUSCULAR HEMOGLOBIN 35.5 PG (27.0-34.0); MEAN CORPUSCULAR HGB CONC 34.6 % (32.0-36.0); MEAN PLATELET VOLUME 7.9 FL (7.0-11.0); MONO % 10.7 % (0.0-8.0); MONOCYTE # 1.7 TH/MM3 (0-0.9); NEUT % 54.4 % (16.0-70.0); PLATELET COUNT 292 TH/MM3 (150-450); RED CELL DISTRIBUTION WIDTH 16.2 % (11.6-17.2); WHITE BLOOD COUNT 15.9 TH/MM3 (4.0-11.0)
[2017-11-28 00:49] LABS: ALBUMIN 3.9 GM/DL (3.4-5.0); ALT (GPT) 23 U/L (12-78); AST (GOT) 43 U/L (15-37); BICARBONATE 23.3 MEQ/L (21.0-32.0); BLOOD UREA NITROGEN 12 MG/DL (7-18); CALCIUM 8.2 MG/DL (8.5-10.1); CHLORIDE 107 MEQ/L (98-107); CREATININE 1.19 MG/DL (0.60-1.30); GLOMERULAR FILTRATION RATE 62 ML/MIN (>89); GLUCOSE,RANDOM 121 MG/DL (74-106); SODIUM (NA) 145 MEQ/L (136-145)
[2017-11-28 00:52] LABS: ALKALINE PHOSPHATASE 75 U/L (45-117); TOTAL BILIRUBIN ADULT 0.3 MG/DL (0.2-1.0); TOTAL PROTEIN 6.9 GM/DL (6.4-8.2)
--- NOTE | 2017-11-28 01:14 | RADRPT ---
EXAM DATE/TIME: 11/28/2017 00:22 [facility] COMPARISON: CHEST SINGLE AP, August 02, 2016, 6:28. INDICATIONS : Short of breath and cough. MEDICAL HISTORY : None. SURGICAL HISTORY : Cholecystectomy. Left humerus. Left forearm. Right elbow. ENCOUNTER: Initial ACUITY: 3 days PAIN SCORE: 0/10 LOCATION: Bilateral chest FINDINGS: Emphysematous changes with subpleural blebs most notably in the apices. Patchy interstitial thickenin g which appears fairly stable. Slight blunting of the right costophrenic angle which is also stable. Cardiomediastinal contours are satisfactory. Thoracic skeleton is grossly intact. CONCLUSION: Emphysema in patchy interstitial thickening which appears grossly stable. Juan Zuleta MD on November 28, 2017 at 1:07 Board Certified Radiologist. This report was verified electronically.
[2017-11-28] MEDS ORDERED: LEVOFLOXACIN 500 MG TAB PO ONE (01:45)
[2017-11-28] MEDS ORDERED: ACETAMINOPHEN 500 MG CPLT PO ONE (01:45)
[2017-11-28 01:58] VITALS: O2SAT 95
[2017-11-28] MEDS ORDERED: LEVA500T33 PO (03:26)
[2017-11-28] MEDS ORDERED: VENTAER INH (03:26)
--- NOTE | 2017-11-28 03:26 | PD ---
HPI Chief Complaint: Respiratory Symptoms Time Seen by Provider: 00:05 Travel History International Travel<30 days: No Contact w/Intl Traveler<30days: No Traveled to known affect area: No History of Present Illness HPI 62 yo M with SOB PFSH Past Medical History COPD: Yes Diminished Hearing: No Medical other: Yes (PT SAYS HE HAD A "VIRUS" FOR 5 YEARS) Respiratory: Yes (ASTHMA) Past Surgical History Other Surgery: Yes (ABD) Social History Alcohol Use: Yes (WINE OCC) Tobacco Use: No ( PPW) Substance Use: No Allergies-Medications (Allergen,Severity, Reaction): Coded Allergies: No Known Allergies (Unverified Adverse Reaction, Unknown, 11/28/17) Reported Meds & Prescriptions Reported Meds & Active Scripts Active Levaquin (Levofloxacin) 500 Mg Tablet 500 Mg PO DAILY 7 Days Ventolin Hfa 18 GM Inh (Albuterol Sulfate) 90 Mcg/Act Aer 2 Puff INH Q4H PRN Oxygen tank (Oxygen) 1 Ea Tank 2 Liter AKANKSHA.[employer] CONTINUOUS Oxygen Concentrator Portable Gaseous 2 L/min via Nasal Cannula Continuous For 99 months Prednisone 20 Mg Tab 40 Mg PO DIRECTED Symbicort Inh (Budesonide/Formoterol Fumarate) 160-4.5 Mcg/Act Aero 2 Puff INH Q12HR Reported Ventolin Hfa 18 GM Inh (Albuterol Sulfate) 90 Mcg/Act Aer 2 Puff INH Q4-6H PRN Albuterol Neb (Albuterol Sulfate) 2.5 Mg/3 Ml Neb 2.5 Mg NEB Q4-6H PRN Physical Exam Exam Limitations: Poor Historian Narrative GENERAL: 62-year-old male in moderate respiratory distress SKIN: Focused skin assessment warm/dry. HEAD: Atraumatic. Normocephalic. EYES: Pupils equal and round. No scleral icterus. No injection or drainage. ENT: No nasal bleeding or discharge. Mucous membranes pink and moist. NECK: Trachea midline. No JVD. CARDIOVASCULAR: Regular rate and rhythm. No murmur appreciated. RESPIRATORY: Coarse breath sounds with bilateral wheezing and rhonchi GASTROINTESTINAL: Abdomen soft, non-tender, nondistended. Hepatic and splenic margins not palpable. MUSCULOSKELETAL: No obvious deformities. No clubbing. No cyanosis. No edema. NEUROLOGICAL: Awake and alert. No obvious cranial nerve deficits. Motor grossly within normal limits. Normal speech. Data Data Last Documented VS Vital Signs Date Time Temp Pulse Resp B/P (MAP) Pulse Ox O2 Delivery O2 Flow Rate FiO2 11/28/17 01:58 95 Nasal Cannula 3.00 11/28/17 00:12 112 15 11/28/17 00:07 99.1 119/67 (84) Orders Orders Dexamethasone Inj (Decadron Inj) (11/28/17 00:15) Albuterol-Ipratropium Neb (Duoneb Neb) (11/28/17 00:15) Chest, Pa & Lat (11/28/17 ) Complete Blood Count With Diff (11/28/17 00:07) Comprehensive Metabolic Panel (11/28/17 00:07) Arterial Blood Gas (Abg) (11/28/17 ) B-Type Natriuretic Peptide (11/28/17 01:07) Troponin I (11/28/17 01:07) Electrocardiogram (11/28/17 ) Albuterol-Ipratropium Neb (Duoneb Neb) (11/28/17 01:45) Levofloxacin (Levaquin) (11/28/17 01:45) Acetaminophen (Tylenol) (11/28/17 01:45) Ed Discharge Order (11/28/17 03:26) Labs Laboratory Tests Test 11/28/17 00:20 11/28/17 00:30 White Blood Count 15.9 TH/MM3 Red Blood Count 4.60 MIL/MM3 Hemoglobin 16.3 GM/DL Hematocrit 47.2 % Mean Corpuscular Volume 102.7 FL Mean Corpuscular Hemoglobin 35.5 PG Mean Corpuscular Hemoglobin Concent 34.6 % Red Cell Distribution Width 16.2 % Platelet Count 292 TH/MM3 Mean Platelet Volume 7.9 FL Neutrophils (%) (Auto) 54.4 % Lymphocytes (%) (Auto) 23.4 % Monocytes (%) (Auto) 10.7 % Eosinophils (%) (Auto) 10.3 % Basophils (%) (Auto) 1.2 % Neutrophils # (Auto) 8.7 TH/MM3 Lymphocytes # (Auto) 3.7 TH/MM3 Monocytes # (Auto) 1.7 TH/MM3 Eosinophils # (Auto) 1.6 TH/MM3 Basophils # (Auto) 0.2 TH/MM3 CBC Comment DIFF FINAL Differential Comment Blood Urea Nitrogen 12 MG/DL Creatinine 1.19 MG/DL Random Glucose 121 MG/DL Total Protein 6.9 GM/DL Albumin 3.9 GM/DL Calcium Level 8.2 MG/DL Alkaline Phosphatase 75 U/L Aspartate Amino Transf (AST/SGOT) 43 U/L Alanine Aminotransferase (ALT/SGPT) 23 U/L Total Bilirubin 0.3 MG/DL Sodium Level 145 MEQ/L Potassium Level 3.9 MEQ/L Chloride Level 107 MEQ/L Carbon Dioxide Level 23.3 MEQ/L Anion Gap 15 MEQ/L Estimat Glomerular Filtration Rate 62 ML/MIN Troponin I LESS THAN 0.02 NG/ML B-Type Natriuretic Peptide 29 PG/ML Blood Gas Puncture Site LT RADIAL Blood Gas Patient Temperature 98.6 Blood Gas HCO3 23 mmol/L Blood Gas Base Excess -1.5 mmol/L Blood Gas Oxygen Saturation 92 % Arterial Blood pH 7.41 Arterial Blood Partial Pressure CO2 36 mmHg Arterial Blood Partial Pressure O2 67 mmHG Arterial Blood Oxygen Content 20.9 Vol % Arterial Blood Carboxyhemoglobin 1.1 % Arterial Blood Methemoglobin 0.6 % Blood Gas Hemoglobin 16.2 G/DL Oxygen Delivery Device NASAL CANNULA Blood Gas Liter Flow 1.5 L/M MDM Medical Decision Making Medical Screen Exam Complete: Yes Emergency Medical Condition: Yes Differential Diagnosis COPD, Bronchitis, pneumonia Narrative Course Patient seen and evaluated in the emergency department. He was given an initial dose of Levaquin, several DuoNeb treatments and is feeling much better. His testing was negative fo acute findings that would warrant hospitalization. He is given a prescription for his Ventolin inhaler. He will follow-up with his family doctor in a few days. Diagnosis Primary Impression: Bronchitis Med/Other Pt SpecificInfo: Prescription(s) given Scripts Levofloxacin (Levaquin) 500 Mg Tablet 500 MG PO DAILY for Infection for 7 Days, #7 TAB 0 Refills Prov: Jaclyn Monzon DO 11/28/17 Albuterol 18 GM Inh (Ventolin Hfa 18 GM Inh) 90 Mcg/Act Aer 2 PUFF INH Q4H Y for SHORTNESS OF BREATH, #1 INHALER 0 Refills Prov: Jaclyn Monzon DO 11/28/17 Jaclyn Monzon DO November 28, 2017 03:26
--- NOTE | 2017-11-28 18:36 | EKG ---
Date Performed: 11/28/2017 Time Performed: 01:35:10 PTAGE: 62 years EKG: SINUS TACHYCARDIA ABNORMAL RHYTHM ECG INTERPRETATION BASED ON A DEFAULT AGE OF 40 YEARS Sin ce the PREVIOUS TRACING , no significant change noted PREVIOUS TRACIN07/31/2016 19.53 DOCTOR: Dhruv Guillen Interpretating Date/Time 11/28/2017 16:38:18
== END 2017-11-28 04:30 | disposition home or self-care (01) ==
LOC: NEPC 23:59
DX: J43.9 Emphysema, unspecified (principal)
CPT/HCPCS: 36600; 71046; 80053; 82805; 83880; 84484; 85025; 93005; 94640; 94664; 96374; 99285; J1100

== ENCOUNTER 2017-12-06 21:20 | Observation (INO) | payer OTHER, MEDICAID ==
[~2017-12-06] VITALS: Ht 188 cm; Wt 103.0 kg
[~2017-12-06 21:20] MED LIST changes: -HYDR-3533 PO; +LEVA500T33 PO; -LEVO500T3 PO
[2017-12-06 21:26] VITALS: BP 142/86; PULSE 105; RESP 20; O2SAT 95
--- NOTE | 2017-12-06 21:29 | PD ---
HPI Chief Complaint: Shortness of breath Time Seen by Provider: 21:26 Travel History International Travel<30 days: No Contact w/Intl Traveler<30days: No History of Present Illness HPI 62-year-old male patient with history of COPD, seen last week for the same, here because he has had worsening in his symptoms, has used his albuterol pump about 20 times a day without significant relief, was given Solu-Medrol and nebulizers by EMS with some mild improvement in breathing. He is still wheezing , coughing, and states that he is not much better. He denies any fevers or other issues. Modifying Factors: None Associated Signs & Symptoms: Coughing, wheezing, shortness of breath Risk Factors: COPD, seen last week for same PFSH Past Medical History COPD: Yes Diminished Hearing: No Respiratory: Yes (ASTHMA) Past Surgical History Other Surgery: Yes (ABD) Social History Alcohol Use: Yes (WINE OCC) Tobacco Use: No ( PPW) Substance Use: No Allergies-Medications (Allergen,Severity, Reaction): Coded Allergies: No Known Allergies (Unverified Adverse Reaction, Unknown, 11/28/17) Reported Meds & Prescriptions Reported Meds & Active Scripts Active Levaquin (Levofloxacin) 500 Mg Tablet 500 Mg PO DAILY 7 Days Ventolin Hfa 18 GM Inh (Albuterol Sulfate) 90 Mcg/Act Aer 2 Puff INH Q4H PRN Oxygen tank (Oxygen) 1 Ea Tank 2 Liter AKANKSHA.CANULA CONTINUOUS Oxygen Concentrator Portable Gaseous 2 L/min via Nasal Cannula Continuous For 99 months Prednisone 20 Mg Tab 40 Mg PO DIRECTED Symbicort Inh (Budesonide/Formoterol Fumarate) 160-4.5 Mcg/Act Aero 2 Puff INH Q12HR Reported Ventolin Hfa 18 GM Inh (Albuterol Sulfate) 90 Mcg/Act Aer 2 Puff INH Q4-6H PRN Albuterol Neb (Albuterol Sulfate) 2.5 Mg/3 Ml Neb 2.5 Mg NEB Q4-6H PRN Review of Systems Except as stated in HPI: all other systems reviewed are Neg Physical Exam Narrative GENERAL: Well-developed elderly white male patient currently and moderate respiratory distress. Awake and oriented 3. SKIN: Focused skin assessment warm/dry. HEAD: Atraumatic. Normocephalic. EYES: Pupils equal and round. No scleral icterus. No injection or drainage. ENT: No nasal bleeding or discharge. Mucous membranes pink and moist. NECK: Trachea midline. No JVD. CARDIOVASCULAR: Regular rate and rhythm. No murmur appreciated. RESPIRATORY: Mild accessory muscle use. Wheezing throughout. Breath sounds equal bilaterally. GASTROINTESTINAL: Abdomen soft, non-tender, nondistended. Hepatic and splenic margins not palpable. MUSCULOSKELETAL: No obvious deformities. No clubbing. No cyanosis. No edema. NEUROLOGICAL: Awake and alert. No obvious cranial nerve deficits. Motor grossly within normal limits. Normal speech. PSYCHIATRIC: Appropriate mood and affect; insight and judgment normal. Data Data Last Documented VS Vital Signs Date Time Temp Pulse Resp B/P (MAP) Pulse Ox O2 Delivery O2 Flow Rate FiO2 12/06/17 21:35 95 Nasal Cannula 3.00 12/06/17 21:35 20 12/06/17 21:26 105 142/86 (104) Orders Orders Complete Blood Count With Diff (12/06/17 21:26) Basic Metabolic Panel (Bmp) (12/06/17 21:26) B-Type Natriuretic Peptide (12/06/17 21:26) Iv Access Insert/Monitor (12/06/17 21:26) Electrocardiogram (12/06/17 21:26) Ecg Monitoring (12/06/17 21:26) Oximetry (12/06/17 21:26) Oxygen Administration (12/06/17 21:26) Chest, Single Ap (12/06/17 21:26) Sodium Chloride 0.9% Flush (Ns Flush) (12/06/17 21:30) Albuterol-Ipratropium Neb (Duoneb Neb) (12/06/17 21:30) Albuterol-Ipratropium Neb (Duoneb Neb) (12/06/17 23:00) Admit Order (Ed Use Only) (12/06/17 23:56) Labs Laboratory Tests Test 12/06/17 21:40 White Blood Count 17.5 TH/MM3 Red Blood Count 4.62 MIL/MM3 Hemoglobin 16.2 GM/DL Hematocrit 47.4 % Mean Corpuscular Volume 102.5 FL Mean Corpuscular Hemoglobin 35.0 PG Mean Corpuscular Hemoglobin Concent 34.1 % Red Cell Distribution Width 16.2 % Platelet Count 290 TH/MM3 Mean Platelet Volume 7.5 FL Neutrophils (%) (Auto) 52.1 % Lymphocytes (%) (Auto) 20.8 % Monocytes (%) (Auto) 9.8 % Eosinophils (%) (Auto) 16.3 % Basophils (%) (Auto) 1.0 % Neutrophils # (Auto) 9.1 TH/MM3 Lymphocytes # (Auto) 3.7 TH/MM3 Monocytes # (Auto) 1.7 TH/MM3 Eosinophils # (Auto) 2.9 TH/MM3 Basophils # (Auto) 0.2 TH/MM3 CBC Comment DIFF FINAL Differential Comment Blood Urea Nitrogen 14 MG/DL Creatinine 0.99 MG/DL Random Glucose 155 MG/DL Calcium Level 8.7 MG/DL Sodium Level 144 MEQ/L Potassium Level 4.3 MEQ/L Chloride Level 109 MEQ/L Carbon Dioxide Level 23.3 MEQ/L Anion Gap 12 MEQ/L Estimat Glomerular Filtration Rate 77 ML/MIN B-Type Natriuretic Peptide 27 PG/ML MDM Medical Decision Making Medical Screen Exam Complete: Yes Emergency Medical Condition: Yes Medical Record Reviewed: Yes Interpretation(s) Laboratory Tests Test 12/06/17 21:40 White Blood Count 17.5 TH/MM3 (4.0-11.0) Mean Corpuscular Volume 102.5 FL (80.0-100.0) Mean Corpuscular Hemoglobin 35.0 PG (27.0-34.0) Monocytes (%) (Auto) 9.8 % (0.0-8.0) Eosinophils (%) (Auto) 16.3 % (0.0-4.0) Neutrophils # (Auto) 9.1 TH/MM3 (1.8-7.7) Monocytes # (Auto) 1.7 TH/MM3 (0-0.9) Eosinophils # (Auto) 2.9 TH/MM3 (0-0.4) Random Glucose 155 MG/DL (74-106) Chloride Level 109 MEQ/L (98-107) Estimat Glomerular Filtration Rate 77 ML/MIN (>89) Last 24 hours Impressions Chest X-Ray 12/06/172125 Signed Impressions: Service Date/Time: Wednesday, December 06, 2017 21:36 - CONCLUSION: No acute disease. No significant change has occurred. Hernan Muir MD Differential Diagnosis COPD exacerbation versus pneumonia versus CHF Narrative Course Chest x-ray did not show any signs of acute pulmonary processes. Patient was treated with Solu-Medrol, several more nebulizers in the ER without significant improvement. At this point, my plan would be to admit the patient for observation for further treatment of COPD exacerbation. He was also ordered for magnesium IV. Diagnosis Primary Impression: Acute exacerbation of chronic obstructive pulmonary disease (COPD) Admitting Information Admitting Physician Requests: Admit Jb Garcia MD December 06, 2017 21:29
[2017-12-06] MEDS ORDERED: SODIUM CHLORIDE 0.9% FLUSH 10 ML FLUSH IVF PRN (21:30)
[2017-12-06 21:35] VITALS: RESP 20; O2SAT 95
[2017-12-06] MEDS: RESP: ALBUTEROL 2.5 MG/IPRATROPIUM 0.5 MG NEB (SCH) INH ×4 (21:46→22:59)
[2017-12-06 22:00] LABS: AUTOMATED NEUTROPHIL # 9.1 TH/MM3 (1.8-7.7); BASOPHIL # 0.2 TH/MM3 (0-0.2); EOSINOPHIL # 2.9 TH/MM3 (0-0.4); EOSINOPHIL % 16.3 % (0.0-4.0); HEMATOCRIT 47.4 % (39.0-51.0); HEMOGLOBIN 16.2 GM/DL (13.0-17.0); LYMPH % 20.8 % (9.0-44.0); LYMPHOCYTE # 3.7 TH/MM3 (1.0-4.8); MEAN CELL VOLUME 102.5 FL (80.0-100.0); MEAN CORPUSCULAR HGB CONC 34.1 % (32.0-36.0); MEAN PLATELET VOLUME 7.5 FL (7.0-11.0); MONO % 9.8 % (0.0-8.0); MONOCYTE # 1.7 TH/MM3 (0-0.9); NEUT % 52.1 % (16.0-70.0); PLATELET COUNT 290 TH/MM3 (150-450); RED BLOOD COUNT 4.62 MIL/MM3 (4.50-5.90); RED CELL DISTRIBUTION WIDTH 16.2 % (11.6-17.2); WHITE BLOOD COUNT 17.5 TH/MM3 (4.0-11.0)
--- NOTE | 2017-12-06 22:05 | RADRPT ---
EXAM DATE/TIME: 12/06/2017 21:36 [facility] COMPARISON: CHEST PA & LAT, November 28, 2017, 0:22. CHEST SINGLE AP, August 02, 2016, 6:28. INDICATIONS : Shortness of breath and cough. MEDICAL HISTORY : Asthma. SURGICAL HISTORY : Cholecystectomy. ENCOUNTER: Initial ACUITY: 4 - 6 days PAIN SCORE: 0/10 LOCATION: chest FINDINGS: A single view of the chest demonstrates the lungs to be symmetrically aerated without evidence of mas s, infiltrate or effusion. There is hyperaeration of both lung nguyen. The cardiomediastinal contours are unremarkable. Osseous structures are intact. CONCLUSION: No acute disease. No significant change has occurred. Hernan Muir MD on December 06, 2017 at 22:02 Board Certified Radiologist. This report was verified electronically.
[2017-12-06 22:28] LABS: BICARBONATE 23.3 MEQ/L (21.0-32.0); CALCIUM 8.7 MG/DL (8.5-10.1); CREATININE 0.99 MG/DL (0.60-1.30)
[2017-12-07] VITALS (10 sets, daily range): BP systolic 102–128; BP diastolic 55–70; PULSE 68–105; RESP 16–20; TEMP 97.7–98.2; O2SAT 92–98
[2017-12-07] MEDS ORDERED: LACTULOSE SYRUP 20 GM/30 ML CUP PO PRN (00:15)
[2017-12-07] MEDS ORDERED: ACETAMINOPHEN 325 MG TAB PO PRN (00:15)
[2017-12-07] MEDS ORDERED: MAGNESIUM HYDROXIDE SUSP 30 ML CUP PO PRN (00:15)
[2017-12-07] MEDS ORDERED: BISACODYL 10 MG SUPP RECTAL PRN (00:15)
[2017-12-07] MEDS ORDERED: METOCLOPRAMIDE HCL 10 MG/2 ML VIAL IV PUSH PRN (00:15)
[2017-12-07] MEDS ORDERED: SENNOSIDES 8.6 MG TAB PO PRN (00:15)
[2017-12-07] MEDS ORDERED: ACETAMINOPHEN/HYDROcodone 325 MG/5 MG TAB PO PRN (00:15)
--- NOTE | 2017-12-07 00:20 | HHI.HP ---
[facility]Staff Admission Diagnosis COPD exacerbation Diagnoses: (1) COPD (chronic obstructive pulmonary disease) Diagnosis: Principal (2) Leukocytosis Diagnosis: Principal (3) Tobacco abuse Diagnosis: Principal Travel History International Travel<30 Days: No Contact w/Intl Traveler <30 Da: No Traveled to Known Affected Are: No History of Present Illness This is a 62-year-old male with a PMH of COPD and Tobacco Abuse who was brought to the ER by EMS secondary to severe SOB and wheezing. Presented to ER on for similar complaints, s/p DuoNeb and d/c'd home on Levaquin and Albuterol MDI. States he's used his MDI approx 20 times today w/ no improvement. Denies fever, chills or sick contacts. +non-productive cough. On arrival, BP 142/86 , HR 105, O2 sat 95% on 3L NC. WBC 17.5. Chemistry essentially unremarkable. CXR with no acute findings. S/p Solu-Medrol and DuoNeb in ER w/ minimal improvement, persistent SOB and wheezing. Review of Systems Except as stated in HPI: all other systems reviewed are Neg ROS: 14 point review of systems otherwise negative. Past Family Social History Past Medical History PMH: COPD and Tobacco Abuse Past Surgical History PAST SURGICAL HISTORY: Abdominal Surgery Allergies: Coded Allergies: No Known Allergies (Unverified Allergy, Unknown, 12/07/17) Family History PAST FAMILY HISTORY: Reviewed. No h/o DM or CAD Social History PAST SOCIAL HISTORY: Occasional wine. Smokes 2-3 cigarettes per day. Negative for drugs. Physical Exam Vital Signs Vital Signs Date Time Temp Pulse Resp B/P (MAP) Pulse Ox O2 Delivery O2 Flow Rate FiO2 12/06/17 21:35 95 Nasal Cannula 3.00 12/06/17 21:35 20 95 Nasal Cannula 3.00 12/06/17 21:26 105 20 142/86 (104) 95 Physical Exam PE: GENERAL: Middle-age male in no acute distress, intermittent cough. HEENT: PERRLA, EOMI. No scleral icterus or conjunctival pallor. No lid lag or facial droop. CARDIOVASCULAR: Regular rate and rhythm. No obvious murmurs to auscultation. No chest tenderness to palpation. RESPIRATORY: No obvious rhonchi. Diffuse wheezing bilaterally. Clear to auscultation. Breath sounds equal bilaterally. GASTROINTESTINAL: Abdomen soft, non-tender, nondistended. BS normal. MUSCULOSKELETAL: Extremities without clubbing, cyanosis, or edema. No obvious deformities. NEUROLOGICAL: Awake, alert and oriented x4. No focal neurologic deficits. Moving both upper and lower extremities spontaneously. Laboratory Laboratory Tests Test 12/06/17 21:40 White Blood Count 17.5 Red Blood Count 4.62 Hemoglobin 16.2 Hematocrit 47.4 Mean Corpuscular Volume 102.5 Mean Corpuscular Hemoglobin 35.0 Mean Corpuscular Hemoglobin Concent 34.1 Red Cell Distribution Width 16.2 Platelet Count 290 Mean Platelet Volume 7.5 Neutrophils (%) (Auto) 52.1 Lymphocytes (%) (Auto) 20.8 Monocytes (%) (Auto) 9.8 Eosinophils (%) (Auto) 16.3 Basophils (%) (Auto) 1.0 Neutrophils # (Auto) 9.1 Lymphocytes # (Auto) 3.7 Monocytes # (Auto) 1.7 Eosinophils # (Auto) 2.9 Basophils # (Auto) 0.2 CBC Comment DIFF FINAL Differential Comment Blood Urea Nitrogen 14 Creatinine 0.99 Random Glucose 155 Calcium Level 8.7 Sodium Level 144 Potassium Level 4.3 Chloride Level 109 Carbon Dioxide Level 23.3 Anion Gap 12 Estimat Glomerular Filtration Rate 77 B-Type Natriuretic Peptide 27 Result Diagram: 12/06/17213912/06/172139 Caprini VTE Risk Assessment Caprini VTE Risk Assessment: No/Low Risk (score <= 1) Caprini Risk Assessment Model Point Value = 1 Point Value = 2 Point Value = 3 Point Value = 5 Age 41-60 Minor surgery BMI > 25 kg/m2 Swollen legs Varicose veins or History of unexplained or recurrent spontaneous Oral contraceptives or hormone replacement Sepsis (< 1 month) Serious lung disease, including pneumonia (< 1 month) Abnormal pulmonary function Acute myocardial infarction Congestive heart failure (< 1 month) History of inflammatory bowel disease Medical patient at bed rest Age 61-74 Arthroscopic surgery Major open surgery (> 45 min) Laparoscopic surgery (> 45 min) Malignancy Confined to bed (> 72 hours) Immobilizing plaster cast Central venous access Age >= 75 History of VTE Family history of VTE Factor V Leiden Prothrombin [id number] Lupus anticoagulant Anticardiolipin antibodies Elevated serum homocysteine Heparin-induced thrombocytopenia Other congenital or acquired thrombophilia Stroke (< 1 month) Elective arthroplasty Hip, pelvis, or leg fracture Acute spinal cord injury (< 1 month) Prophylaxis Regimen Total Risk Factor Score Risk Level Prophylaxis Regimen 0-1 Low Early ambulation 2 Moderate Order ONE of the following: *Sequential Compression Device (SCD) *Heparin 5000 units SQ BID 3-4 Higher Order ONE of the following medications: *Heparin 5000 units SQ TID *Enoxaparin/Lovenox 40 mg SQ daily (WT < 150 kg, CrCl > 30 mL/min) *Enoxaparin/Lovenox 30 mg SQ daily (WT < 150 kg, CrCl > 10-29 mL/min) *Enoxaparin/Lovenox 30 mg SQ BID (WT < 150 kg, CrCl > 30 mL/min) AND/OR *Sequential Compression Device (SCD) 5 or more Highest Order ONE of the following medications: *Heparin 5000 units SQ TID (Preferred with Epidurals) *Enoxaparin/Lovenox 40 mg SQ daily (WT < 150 kg, CrCl > 30 mL/min) *Enoxaparin/Lovenox 30 mg SQ daily (WT < 150 kg, CrCl > 10-29 mL/min) *Enoxaparin/Lovenox 30 mg SQ BID (WT < 150 kg, CrCl > 30 mL/min) AND *Sequential Compression Device (SCD) Assessment and Plan Problem List: (1) COPD (chronic obstructive pulmonary disease) ICD Code: J44.9 - Chronic obstructive pulmonary disease, unspecified (2) Leukocytosis ICD Code: D72.829 - Elevated white blood cell count, unspecified (3) Tobacco abuse ICD Code: Z72.0 - Tobacco use Assessment and Plan A/P: 1. COPD: Chronic Respiratory Failure w/ Acute Exacerbation. Severe. S/p Albuterol MDI x20 today w/ no improvement, Solu-Medrol and DuoNeb in ER w/ persistent wheezing/SOB. O2 sat 95% on 2-3L NC. Admit for Observation, continue Solu-Medrol, DuoNeb q4h and q2h prn, Symbicort, Mucinex. 2. Leukocytosis: Likely secondary to steroid therapy, no shift, CXR w/ no acute findings, images reviewed by me. Repeat labs in am 3. Tobacco Abuse: Pt counselled. NicoDerm patch if needed. 4. DVT Prophylaxis: SCD/Teds 5. Social work for d/c planning as needed. 6. Case discussed w/ ER physician at length, labs/records/imaging reviewed by me. Angie Pedro MD December 07, 2017 00:20
[2017-12-07] MEDS: RESP: ALBUTEROL 2.5 MG/IPRATROPIUM 0.5 MG NEB (PRN) NEB ×3 (01:16→23:32)
[2017-12-07] MEDS: methylPREDNISolone SOD SUCC 40 MG/1 ML VIAL IV PUSH SCH ×3 (06:32→18:01)
[2017-12-07] MEDS: RESP: ALBUTEROL 2.5 MG/IPRATROPIUM 0.5 MG NEB (SCH) NEB ×4 (07:53→19:16)
--- NOTE | 2017-12-07 08:16 | HHI.PR ---
Subjective Remarks Follow-up COPD exacerbation December 07, 2017-patient seen and examined, continues to complain of shortness of breath and nonproductive cough. Afebrile. Objective Vitals Vital Signs Date Time Temp Pulse Resp B/P (MAP) Pulse Ox O2 Delivery O2 Flow Rate FiO2 12/07/17 07:55 97 Nasal Cannula 3.00 12/07/17 04:01 97.7 98 18 115/61 (79) 93 12/07/17 01:50 98.0 100 18 102/63 (76) 98 12/07/17 00:27 96 Nasal Cannula 3.00 12/06/17 21:35 95 Nasal Cannula 3.00 12/06/17 21:35 20 95 Nasal Cannula 3.00 12/06/17 21:26 105 20 142/86 (104) 95 Result Diagram: 12/06/17213912/06/172139 Imaging Last Impressions Chest X-Ray 12/06/172125 Signed Impressions: Service Date/Time: Wednesday, December 06, 2017 21:36 - CONCLUSION: No acute disease. No significant change has occurred. Hernan Muir MD Objective Remarks GENERAL: NAD SKIN: Warm and dry. HEAD: Normocephalic. EYES: No scleral icterus. No injection or drainage. NECK: Supple, trachea midline. No JVD or lymphadenopathy. CARDIOVASCULAR: Regular rate and rhythm without murmurs, gallops, or rubs. RESPIRATORY: Breath sounds decrease bilaterally. No accessory muscle use.+ Bilateral expiratory wheezes GASTROINTESTINAL: Abdomen soft, non-tender, nondistended. MUSCULOSKELETAL: No cyanosis, or edema. BACK: Nontender without obvious deformity. No CVA tenderness. A/P Problem List: (1) COPD (chronic obstructive pulmonary disease) ICD Code: J44.9 - Chronic obstructive pulmonary disease, unspecified (2) Leukocytosis ICD Code: D72.829 - Elevated white blood cell count, unspecified (3) Tobacco abuse ICD Code: Z72.0 - Tobacco use Assessment and Plan 62-year-old man with 1. COPD: Chronic Respiratory Failure w/ Acute Exacerbation. Severe. O2 sat 95 % on 2-3L NC. continue Solu-Medrol 40 mg every 6, DuoNeb q4h and q2h prn, Symbicort, Mucinex. Add Spiriva and azithromycin 250 mg daily. Tobacco cessation counseling provided 2. Leukocytosis: Likely secondary to steroid therapy, no shift, CXR w/ no acute findings. Monitor CBC 3. Tobacco Abuse: Pt counselled. NicoDerm patch if needed. 4. DVT Prophylaxis: ALCIDES/Ralf North MD December 07, 2017 08:16
[2017-12-07] MEDS: BUDESONIDE-FORMOTEROL 160/4.5 MCG INHALER INH SCH ×2 (08:56→20:43)
[2017-12-07] MEDS: TIOTROPIUM BROMIDE 18 MCG INH INH SCH (08:56)
[2017-12-07] MEDS: SODIUM CHLORIDE 0.9% FLUSH 10 ML FLUSH IV FLUSH SCH ×2 (08:56→20:42)
[2017-12-07] MEDS: guaiFENesin E.R. 600 MG TAB PO SCH ×2 (08:57→20:39)
[2017-12-07] MEDS: AZITHROMYCIN 250 MG TAB PO SCH (08:57)
[2017-12-07] MEDS ORDERED: DOCUSATE SODIUM 50 MG/SENNA 8.6 MG TAB PO SCH (09:00)
[2017-12-07] MEDS: ACETAMINOPHEN/HYDROcodone 325 MG/10 MG TAB PO PRN (09:08)
[2017-12-07] MEDS: SODIUM CHLORIDE 0.9% FLUSH 10 ML FLUSH IV FLUSH PRN ×2 (12:14→18:01)
[2017-12-07] MEDS: RESP: LIDOCAINE HCL 2% 2 ML NEB NEB PRN ×2 (15:20→23:32)
--- NOTE | 2017-12-07 17:17 | EKG ---
Date Performed: 12/06/2017 Time Performed: 21:33:12 PTAGE: 62 years EKG: SINUS TACHYCARDIA LOW QRS VOLTAGE IN PRECORDIAL LEADS ABNORMAL RHYTHM ECG PREVIOUS TRACING : 11/28/2017 01.35 Since the previous tracing, no significant change noted DOCTOR: Joyce Chan Interpretating Date/Time 12/07/2017 17:15:48
[2017-12-08] VITALS (7 sets, daily range): BP systolic 117–137; BP diastolic 58–83; PULSE 93–110; RESP 16–18; TEMP 98–98.6; O2SAT 88–92
[2017-12-08] MEDS: methylPREDNISolone SOD SUCC 40 MG/1 ML VIAL IV PUSH SCH ×4 (00:17→21:14)
[2017-12-08] MEDS: RESP: ALBUTEROL 2.5 MG/IPRATROPIUM 0.5 MG NEB (PRN) NEB ×2 (03:19→12:49)
[2017-12-08 06:13] LABS: AUTOMATED NEUTROPHIL # 28.6 TH/MM3 (1.8-7.7); BASOPHIL # 0.4 TH/MM3 (0-0.2); BASOPHIL % 1.2 % (0.0-2.0); HEMATOCRIT 47.5 % (39.0-51.0); LYMPH % 3.1 % (9.0-44.0); MEAN CELL VOLUME 102.5 FL (80.0-100.0); MEAN CORPUSCULAR HEMOGLOBIN 34.4 PG (27.0-34.0); MEAN CORPUSCULAR HGB CONC 33.6 % (32.0-36.0); MEAN PLATELET VOLUME 7.7 FL (7.0-11.0); MONO % 3.5 % (0.0-8.0); MONOCYTE # 1.1 TH/MM3 (0-0.9); NEUT % 92.2 % (16.0-70.0); PLATELET COUNT 261 TH/MM3 (150-450); RED BLOOD COUNT 4.63 MIL/MM3 (4.50-5.90); RED CELL DISTRIBUTION WIDTH 15.9 % (11.6-17.2); WHITE BLOOD COUNT 31.1 TH/MM3 (4.0-11.0)
[2017-12-08 06:35] LABS: ALBUMIN 2.8 GM/DL (3.4-5.0); AST (GOT) 22 U/L (15-37); BLOOD UREA NITROGEN 20 MG/DL (7-18); CALCIUM 9.4 MG/DL (8.5-10.1); CHLORIDE 104 MEQ/L (98-107); CREATININE 1.23 MG/DL (0.60-1.30); GLOMERULAR FILTRATION RATE 60 ML/MIN (>89); GLUCOSE,RANDOM 223 MG/DL (74-106); SODIUM (NA) 138 MEQ/L (136-145)
[2017-12-08 06:36] LABS: ALT (GPT) 22 U/L (12-78)
[2017-12-08 06:38] LABS: ALKALINE PHOSPHATASE 75 U/L (45-117); TOTAL BILIRUBIN ADULT 0.3 MG/DL (0.2-1.0); TOTAL PROTEIN 6.8 GM/DL (6.4-8.2)
[2017-12-08] MEDS: RESP: ALBUTEROL 2.5 MG/IPRATROPIUM 0.5 MG NEB (SCH) NEB ×4 (07:04→19:09)
--- NOTE | 2017-12-08 07:39 | HHI.PR ---
Subjective Remarks Follow-up COPD exacerbation December 07, 2017-patient seen and examined, continues to complain of shortness of breath and nonproductive cough. Afebrile. December 08, 2017-patient seen and examined, although patient reports some improvement of shortness of breath however he is still wheezing. Still with nonproductive cough. Reports improvement of sore throat Objective Vitals Vital Signs Date Time Temp Pulse Resp B/P (MAP) Pulse Ox O2 Delivery O2 Flow Rate FiO2 12/08/17 07:06 88 21 12/08/17 03:02 98.0 104 18 117/76 (90) 92 12/07/17 23:28 105 19 110/55 (73) 92 12/07/17 22:29 98 Nasal Cannula 2.00 12/07/17 19:54 98.0 103 17 115/55 (75) 92 12/07/17 19:16 Nasal Cannula 2.00 12/07/17 16:12 98.2 78 20 128/63 (84) 96 12/07/17 12:50 98.2 68 18 122/60 (80) 96 12/07/17 12:15 98.1 81 16 113/70 (84) 98 12/07/17 09:40 Nasal Cannula 2.00 12/07/17 08:26 98.2 98 20 127/68 (87) 98 12/07/17 07:55 97 Nasal Cannula 3.00 Result Diagram: 12/08/17 0528 12/08/17 0528 Imaging Last Impressions Chest X-Ray 12/06/172125 Signed Impressions: Service Date/Time: Wednesday, December 06, 2017 21:36 - CONCLUSION: No acute disease. No significant change has occurred. Hernan Muir MD Objective Remarks GENERAL: NAD SKIN: Warm and dry. HEAD: Normocephalic. EYES: No scleral icterus. No injection or drainage. NECK: Supple, trachea midline. No JVD or lymphadenopathy. CARDIOVASCULAR: Regular rate and rhythm without murmurs, gallops, or rubs. RESPIRATORY: Breath sounds decrease bilaterally. No accessory muscle use.+ Bilateral expiratory wheezes GASTROINTESTINAL: Abdomen soft, non-tender, nondistended. MUSCULOSKELETAL: No cyanosis, or edema. BACK: Nontender without obvious deformity. No CVA tenderness. A/P Problem List: (1) COPD (chronic obstructive pulmonary disease) ICD Code: J44.9 - Chronic obstructive pulmonary disease, unspecified (2) Leukocytosis ICD Code: D72.829 - Elevated white blood cell count, unspecified (3) Tobacco abuse ICD Code: Z72.0 - Tobacco use Assessment and Plan 62-year-old man with 1. COPD: Chronic Respiratory Failure w/ Acute Exacerbation. Severe. O2 sat 95 % on 2-3L NC. change Solu-Medrol 40 mg to every 8H, DuoNeb q4h and q2h prn, Symbicort, Mucinex, Spiriva and azithromycin 250 mg daily. Tobacco cessation counseling provided 2. Worsening Leukocytosis: Likely secondary to steroid therapy, no shift, CXR w/ no acute findings. Monitor CBC 3. Tobacco Abuse: Pt counselled. NicoDerm patch if needed. 4. DVT Prophylaxis: SCD/Teds 5. Steroid induced Hyperglycemia-Place ISS prophylaxis Ralf Barnes MD December 08, 2017 07:39
[2017-12-08] MEDS ORDERED: GLUCAGON 1 MG/ML VIAL OTHER PRN (07:45)
[2017-12-08] MEDS ORDERED: DEXTROSE 50% IN WATER 50 ML VIAL(D50) IV PUSH PRN (07:45)
[2017-12-08 07:54] LABS: BANDS 10 % (0-6); LYMPHOCYTES 6 % (9-44); NEUTROPHIL # MANUAL DIFF 29.2 TH/MM3 (1.8-7.7); POLYS (SEG NEUTROPHILS) 84 % (16-70)
[2017-12-08] MEDS: BUDESONIDE-FORMOTEROL 160/4.5 MCG INHALER INH SCH ×2 (08:48→21:10)
[2017-12-08] MEDS: TIOTROPIUM BROMIDE 18 MCG INH INH SCH (08:48)
[2017-12-08] MEDS: SODIUM CHLORIDE 0.9% FLUSH 10 ML FLUSH IV FLUSH SCH ×2 (08:49→21:10)
[2017-12-08] MEDS: guaiFENesin E.R. 600 MG TAB PO SCH ×2 (08:50→21:10)
[2017-12-08] MEDS: AZITHROMYCIN 250 MG TAB PO SCH (08:50)
[2017-12-08] MEDS: INSULIN ASPART SUPPLEMENTAL SCALE SQ SCH ×4 (09:48→21:15)
[2017-12-08] MEDS ORDERED: INFLUENZA VIRUS VACCINE (QUADRIVALENT) 0.5 ML SYR IM ONE (10:00)
[2017-12-08] MEDS ORDERED: PNEUMOCOCCAL POLYVALENT INJ 25 MCG/0.5 ML SYR IM ONE (10:00)
[2017-12-08] MEDS: ACETAMINOPHEN/HYDROcodone 325 MG/10 MG TAB PO PRN (21:11)
[2017-12-08] MEDS: PHENOL 1.4% SOLN 180 ML BTL MT PRN (21:12)
[2017-12-08] MEDS: MENTHOL LOZENGE BUCCAL PRN (21:13)
[2017-12-09] MEDS: RESP: ALBUTEROL 2.5 MG/IPRATROPIUM 0.5 MG NEB (PRN) NEB ×2 (00:14→04:02)
[2017-12-09] MEDS: PHENOL 1.4% SOLN 180 ML BTL MT PRN (02:16)
[2017-12-09] MEDS: MENTHOL LOZENGE BUCCAL PRN (02:16)
[2017-12-09 03:51] VITALS: BP 112/66; PULSE 86; RESP 16; TEMP 98.1; O2SAT 91
[2017-12-09] MEDS: methylPREDNISolone SOD SUCC 40 MG/1 ML VIAL IV PUSH SCH (05:48)
[2017-12-09 07:05] LABS: AUTOMATED NEUTROPHIL # 34.2 TH/MM3 (1.8-7.7); BASOPHIL # 0.1 TH/MM3 (0-0.2); BASOPHIL % 0.2 % (0.0-2.0); HEMATOCRIT 49.3 % (39.0-51.0); HEMOGLOBIN 16.6 GM/DL (13.0-17.0); LYMPH % 3.2 % (9.0-44.0); LYMPHOCYTE # 1.2 TH/MM3 (1.0-4.8); MEAN CELL VOLUME 102.8 FL (80.0-100.0); MEAN CORPUSCULAR HEMOGLOBIN 34.5 PG (27.0-34.0); MEAN CORPUSCULAR HGB CONC 33.6 % (32.0-36.0); MEAN PLATELET VOLUME 7.6 FL (7.0-11.0); MONOCYTE # 1.5 TH/MM3 (0-0.9); NEUT % 92.6 % (16.0-70.0); PLATELET COUNT 331 TH/MM3 (150-450); RED CELL DISTRIBUTION WIDTH 15.9 % (11.6-17.2)
[2017-12-09 07:48] LABS: BICARBONATE 24.6 MEQ/L (21.0-32.0); CALCIUM 9.4 MG/DL (8.5-10.1); CREATININE 1.32 MG/DL (0.60-1.30)
--- NOTE | 2017-12-09 07:48 | HHI.PR ---
Subjective Remarks Follow-up COPD exacerbation December 07, 2017-patient seen and examined, continues to complain of shortness of breath and nonproductive cough. Afebrile. December 08, 2017-patient seen and examined, although patient reports some improvement of shortness of breath however he is still wheezing. Still with nonproductive cough. Reports improvement of sore throat December 09, 2017-patient seen and examined, reported improvement of shortness of breath and denies any more wheezing. Afebrile Objective Vitals Vital Signs Date Time Temp Pulse Resp B/P (MAP) Pulse Ox O2 Delivery O2 Flow Rate FiO2 12/09/17 03:51 98.1 86 16 112/66 (81) 91 12/08/17 23:39 98.1 93 16 117/58 (77) 91 12/08/17 21:00 Room Air 12/08/17 19:37 98.3 93 16 137/68 (91) 90 12/08/17 19:12 92 Nasal Cannula 2.00 12/08/17 16:51 98.1 108 16 122/83 (96) 92 12/08/17 08:00 Nasal Cannula 2.00 12/08/17 07:48 98.6 110 16 124/72 (89) 92 I/O 12/08/17 12/08/17 12/08/17 12/09/17 12/09/17 12/09/17 06:59 14:59 22:59 06:59 14:59 22:59 Intake Total 720 ml Balance 720 ml Intake Oral 720 ml # Voids 1 2 Result Diagram: 12/09/17 0620 12/08/17 0528 Imaging Last Impressions Chest X-Ray 12/06/172125 Signed Impressions: Service Date/Time: Wednesday, December 06, 2017 21:36 - CONCLUSION: No acute disease. No significant change has occurred. Hernan Muir MD Objective Remarks GENERAL: NAD SKIN: Warm and dry. HEAD: Normocephalic. EYES: No scleral icterus. No injection or drainage. NECK: Supple, trachea midline. No JVD or lymphadenopathy. CARDIOVASCULAR: Regular rate and rhythm without murmurs, gallops, or rubs. RESPIRATORY: Breath sounds equal bilaterally. No accessory muscle use. GASTROINTESTINAL: Abdomen soft, non-tender, nondistended. MUSCULOSKELETAL: No cyanosis, or edema. BACK: Nontender without obvious deformity. No CVA tenderness. Procedures None A/P Problem List: (1) COPD (chronic obstructive pulmonary disease) ICD Code: J44.9 - Chronic obstructive pulmonary disease, unspecified Status: Resolved (2) Leukocytosis ICD Code: D72.829 - Elevated white blood cell count, unspecified (3) Tobacco abuse ICD Code: Z72.0 - Tobacco use Assessment and Plan 62-year-old man with 1. COPD: Chronic Respiratory Failure w/ Acute Exacerbation. Severe. O2 sat 95 % on 2-3L NC. d/c Solu-Medrol 40 mg every 8H and start Prednisone 20mg daily, continue DuoNeb q4h and q2h prn, Symbicort, Mucinex, Spiriva and azithromycin 250 mg daily.Perform walk test. Tobacco cessation counseling provided 2. Worsening Leukocytosis: Likely secondary to steroid therapy, no shift, CXR w/ no acute findings. Monitor CBC 3. Tobacco Abuse: Pt counselled. NicoDerm patch if needed. 4. DVT Prophylaxis: SCD/Teds 5. Steroid induced Hyperglycemia-continue ISS prophylaxis; check Hga1c Ralf Barnes MD December 09, 2017 07:48
--- NOTE | 2017-12-09 07:53 | HHI.DS ---
Discharge Summary Admission Date December 06, 2017 at 23:57 Discharge Date: December 09, 2017 Admitting Diagnosis COPD exacerbation (1) COPD (chronic obstructive pulmonary disease) ICD Code: J44.9 - Chronic obstructive pulmonary disease, unspecified Status: Resolved (2) Leukocytosis ICD Code: D72.829 - Elevated white blood cell count, unspecified (3) Tobacco abuse ICD Code: Z72.0 - Tobacco use Procedures None Brief History - From Admission This is a 62-year-old male with a PMH of COPD and Tobacco Abuse who was brought to the ER by EMS secondary to severe SOB and wheezing. Presented to ER on for similar complaints, s/p DuoNeb and d/c'd home on Levaquin and Albuterol MDI. States he's used his MDI approx 20 times today w/ no improvement. Denies fever, chills or sick contacts. +non-productive cough. On arrival, BP 142/86 , HR 105, O2 sat 95% on 3L NC. WBC 17.5. Chemistry essentially unremarkable. CXR with no acute findings. S/p Solu-Medrol and DuoNeb in ER w/ minimal improvement, persistent SOB and wheezing. CBC/BMP: 12/09/17 0620 12/08/17 0528 Significant Findings Laboratory Tests Test 12/06/17 21:40 12/08/17 05:28 12/09/17 06:20 White Blood Count 17.5 TH/MM3 (4.0-11.0) 31.1 TH/MM3 (4.0-11.0) 37.0 TH/MM3 (4.0-11.0) Mean Corpuscular Volume 102.5 FL (80.0-100.0) 102.5 FL (80.0-100.0) 102.8 FL (80.0-100.0) Mean Corpuscular Hemoglobin 35.0 PG (27.0-34.0) 34.4 PG (27.0-34.0) 34.5 PG (27.0-34.0) Monocytes (%) (Auto) 9.8 % (0.0-8.0) Eosinophils (%) (Auto) 16.3 % (0.0-4.0) Neutrophils # (Auto) 9.1 TH/MM3 (1.8-7.7) 28.6 TH/MM3 (1.8-7.7) 34.2 TH/MM3 (1.8-7.7) Monocytes # (Auto) 1.7 TH/MM3 (0-0.9) 1.1 TH/MM3 (0-0.9) 1.5 TH/MM3 (0-0.9) Eosinophils # (Auto) 2.9 TH/MM3 (0-0.4) Random Glucose 155 MG/DL (74-106) 223 MG/DL (74-106) 184 MG/DL (74-106) Chloride Level 109 MEQ/L (98-107) Estimat Glomerular Filtration Rate 77 ML/MIN (>89) 60 ML/MIN (>89) 55 ML/MIN (>89) Neutrophils (%) (Auto) 92.2 % (16.0-70.0) 92.6 % (16.0-70.0) Lymphocytes (%) (Auto) 3.1 % (9.0-44.0) 3.2 % (9.0-44.0) Basophils # (Auto) 0.4 TH/MM3 (0-0.2) Neutrophils % (Manual) 84 % (16-70) Band Neutrophils % 10 % (0-6) Lymphocytes % 6 % (9-44) Neutrophils # (Manual) 29.2 TH/MM3 (1.8-7.7) Blood Urea Nitrogen 20 MG/DL (7-18) 27 MG/DL (7-18) Albumin 2.8 GM/DL (3.4-5.0) Creatinine 1.32 MG/DL (0.60-1.30) Imaging Last Impressions Chest X-Ray 12/06/172125 Signed Impressions: Service Date/Time: Wednesday, December 06, 2017 21:36 - CONCLUSION: No acute disease. No significant change has occurred. Hernan Muir MD PE at Discharge GENERAL: NAD SKIN: Warm and dry. HEAD: Normocephalic. EYES: No scleral icterus. No injection or drainage. NECK: Supple, trachea midline. No JVD or lymphadenopathy. CARDIOVASCULAR: Regular rate and rhythm without murmurs, gallops, or rubs. RESPIRATORY: Breath sounds equal bilaterally. No accessory muscle use. GASTROINTESTINAL: Abdomen soft, non-tender, nondistended. MUSCULOSKELETAL: No cyanosis, or edema. BACK: Nontender without obvious deformity. No CVA tenderness. Hospital Course Patient presented with shortness of breath along with COPD exacerbation for which he was started on IV Solu-Medrol, bronchodilators, azithromycin and oxygen saturation was maintained above 88%. Subsequently, he was switched to p.o. prednisone prior to discharge as patient's condition improved. Respiratory walk test was performed. DVT and GI progress were provided. Patient was continued on his treatment for other chronic medical conditions. Vitals remained stable Pt Condition on Discharge: Good Discharge Disposition: Discharge Home Discharge Time: <= 30 minutes Discharge Instructions DIET: Follow Instructions for: Diabetic Diet Activities you can perform: Regular-No Restrictions Follow up Referrals: PCP Follow-up - 2-3 Days New Medications: Albuterol 18 GM Inh (Ventolin Hfa 18 GM Inh) 90 Mcg/Act Aer 2 PUFF INH Q4-6H PRN for SHORTNESS OF BREATH, #1 INHALER 3 Refills Ipratropium HFA 12.9 GM Inh (Atrovent HFA 12.9 GM Inh) 17 Mcg/Actuation Aer 2 PUFF INH QID for Shortness of Breath, #1 INHALER 3 Refills Azithromycin (Azithromycin) 250 Mg Tab 250 MG PO DAILY for Infection, #3 TAB Menthol (Mouth-Throat) ([place] Sky Cough Drops Sugar F) 5.8 Mg Yaya 1 LOZENGE BUCCAL Q1H PRN for SORE THROAT, #30 LOZENGE Prednisone (Prednisone) 20 Mg Tab 20 MG PO DAILY for Breathing Treatment, #7 TAB Tiotropium Inh (Spiriva Handihaler) 18 Mcg Cap 18 MCG INH DAILY for Breathing Treatment, #30 CAP 3 Refills 1 capsule = 18 mcg [Budeson-Formot 160-4.5 Mcg Inh] () 60 PUFF AERO 2 PUFF INH Q12HR for Breathing Treatment, #1 3 Refills [guaiFENesin ER] () 600 MG TABCR 600 MG PO BID, #20 Continued Medications: Albuterol 18 GM Inh (Ventolin Hfa 18 GM Inh) 90 Mcg/Act Aer 2 PUFF INH Q4H PRN for SHORTNESS OF BREATH, #1 INHALER 0 Refills Albuterol Neb (Albuterol Neb) 2.5 Mg/3 Ml Neb 2.5 MG NEB Q4-6H PRN for SHORTNESS OF BREATH, #60 NEBULE 0 Refills Budesonide-Formoterol Inh (Symbicort Inh) 160-4.5 Mcg/Act Aero 2 PUFF INH Q12HR for Shortness of Breath, #1 INHALER Discontinued Medications: Albuterol 18 GM Inh (Ventolin Hfa 18 GM Inh) 90 Mcg/Act Aer 2 PUFF INH Q4-6H PRN for SHORTNESS OF BREATH, #1 INHALER 0 Refills Levofloxacin (Levaquin) 500 Mg Tablet 500 MG PO DAILY for Infection for 7 Days, #7 TAB 0 Refills Prednisone (Prednisone) 20 Mg Tab 40 MG PO DIRECTED for Shortness of Breath, #10 TAB 0 Refills Ralf Barnes MD December 09, 2017 07:53
[2017-12-09] MEDS ORDERED: VENTAER INH (07:57)
[2017-12-09] MEDS ORDERED: IPRA17I INH (07:57)
[2017-12-09] MEDS ORDERED: HALLLOZ2 BUCCAL (07:57)
[2017-12-09] MEDS ORDERED: Budeson-Formot 160-4.5 Mcg Inh INH (07:57)
[2017-12-09] MEDS ORDERED: SPIRCAP INH (07:57)
[2017-12-09] MEDS ORDERED: guaiFENesin ER PO (07:57)
[2017-12-09] MEDS ORDERED: AZIT250T3 PO (07:57)
[2017-12-09] MEDS ORDERED: PRED20 PO (07:57)
[2017-12-09] MEDS: RESP: ALBUTEROL 2.5 MG/IPRATROPIUM 0.5 MG NEB (SCH) NEB (08:21)
[2017-12-09 08:36] VITALS: BP 132/74; PULSE 101; RESP 20; TEMP 97.9; O2SAT 90
[2017-12-09] MEDS: guaiFENesin E.R. 600 MG TAB PO SCH (08:50)
[2017-12-09] MEDS: BUDESONIDE-FORMOTEROL 160/4.5 MCG INHALER INH SCH (08:50)
[2017-12-09] MEDS: AZITHROMYCIN 250 MG TAB PO SCH (08:50)
[2017-12-09] MEDS: TIOTROPIUM BROMIDE 18 MCG INH INH SCH (08:50)
[2017-12-09] MEDS: SODIUM CHLORIDE 0.9% FLUSH 10 ML FLUSH IV FLUSH SCH (08:51)
[2017-12-09] MEDS ORDERED: predniSONE 20 MG TAB PO SCH (09:00)
[2017-12-09] MEDS: INSULIN ASPART SUPPLEMENTAL SCALE SQ SCH (09:19)
[2017-12-09 09:22] LABS: LYMPHOCYTES 1 % (9-44); MONOCYTES 2 % (0-8); NEUTROPHIL # MANUAL DIFF 35.9 TH/MM3 (1.8-7.7); POLYS (SEG NEUTROPHILS) 97 % (16-70)
[2017-12-09 15:57] LABS: HEMOGLOBIN A1C 6.2 % (4.3-6.0)
== END 2017-12-09 11:04 | disposition home or self-care (01) ==
LOC: NEPC 21:20 → NEDA 23:57 → NEPFCDU 12-07 01:45
PROVIDERS: ADMIT Hospitalist; ATTEND Hospitalist
DX: J44.1 Chronic obstructive pulmonary disease with (acute) exacerbation (principal); J96.20 Acute and chronic respiratory failure, unspecified whether with hypoxia or hypercapnia; J02.9 Acute pharyngitis, unspecified; D72.829 Elevated white blood cell count, unspecified; R00.0 Tachycardia, unspecified; F17.210 Nicotine dependence, cigarettes, uncomplicated; Z79.899 Other long term (current) drug therapy
CPT/HCPCS: 71045; 80048; 80053; 82948; 83036; 83880; 85007; 85025; 85027; 93005; 94618; 94640; 94664; 96372; 96374; 96376; 99285; G0378; J1815; J2920; J7512

== ENCOUNTER 2018-09-23 20:01 | Inpatient (IN) ==
[2018-09-23] MEDS ORDERED: Sod Chloride 0.9% Inj 1,000 ML IV.CONT SCH (20:30)
--- NOTE | 2018-09-23 20:34 | ED ---
HPI General Chief Complaint: Neuro Symptoms/Deficit Stated Complaint: arm pain Time Seen by Provider: 09/23/18 20:18 Source: patient Mode of arrival: ambulatory Limitations: no limitations History of Present Illness HPI Narrative: The patient is a 63-year-old male who presents to the emergency department with a friend for weakness to the right upper extremity. The patient states his symptoms started at 1 AM last night, have progressed throughout the day. The patient speaks Bosnian with very little Kyrgyz, therefore, brought a friend to help translate at bedside per his request. The patient now complains of increasing weakness to the right hand with inability to grab objects and difficulty extending the wrist. The patient denies any history of hypertension, hyperlipidemia, diabetes, or previous CVA/TIA. The patient does have a history of tobacco use at 10-15 cigarettes/day. The patient denies any difficulty with speech, headache, weakness of the right lower extremity, or difficulties with the left upper and left lower extremity. The patient did initially complain of mild numbness to the right arm, however, states he is able to feel his right arm when he touches it with his left hand. Onset (ago): hour(s) Time: 20:24 Last Observed Normal: 01:00 Timing confirmed by: other Location: Reports right arm History of same: No Severity: moderate Quality: Reports weak and constant Relieving factors: none Exacerbating factors: none Context: Reports sudden onset On Anticoagulants: No Associated symptoms: Reports denies other symptoms Treatments Prior to Arrival: Reports none Related Data Home Medications Medication Instructions Recorded Confirmed hydrocodone-acetaminophen 1 tab PO TID PRN 09/23/18 09/23/18 ranitidine HCl mg PO DAILY 09/23/18 Allergies Allergy/AdvReac Type Severity Reaction Status Date / Time No Known Allergies Allergy Unknown Uncoded 12/07/17 00:16 Review of Systems ROS: all other systems reviewed are negative FORMERLY [facility], 1928–1983 Medical History Medical History Broken arm (Acute) Broken back (Acute) Patient denies medical problems (Acute) Social History Social History Substance History: No History of Abuse Smoking Status: Current every day smoker Tobacco Type: Cigarettes How Often Do You Have a Drink Containing Alcohol: Never Recent Travel in [facility] within the Last 8 Weeks: No Recent Out of Country Travel within the Last 8 Weeks: No Immunization History Tetanus Immunization: Unsure Exam Narrative Exam Narrative: GENERAL: Awake, alert, pleasant 63-year-old male who appears his stated age and is in no acute respiratory distress. SKIN: Focused skin assessment warm/dry. HEAD: Atraumatic. Normocephalic. EYES: Pupils equal and round. 3 mm bilateral and reactive. EOMs are intact. The patient is able to see fingers at a distance of 2 feet without difficulty. ENT: No nasal bleeding or discharge. Mucous membranes pink and moist. NECK: Trachea midline. No JVD. CARDIOVASCULAR: Regular rate and rhythm. No murmur appreciated. RESPIRATORY: No accessory muscle use. Clear to auscultation. Breath sounds equal bilaterally. GASTROINTESTINAL: Abdomen soft, non-tender, nondistended. MUSCULOSKELETAL: No obvious deformities. No clubbing. No cyanosis. No edema. NEUROLOGICAL: Awake and alert. No obvious cranial nerve deficits. Motor grossly within normal limits. Normal speech. Speech is normal per the patient' s friend at bedside. He is able to identify my hand and how many fingers I am holding up. There is no drift of the upper or lower extremities. Finger to nose is normal except he is unable to extend the digits on the right hand. Heel to lanier is normal. Sensation is symmetric in the radial, median, and ulnar distribution of the right hand and left hand when compared symmetrically. However, patient has difficulty abducting and abducting the digits of the right hand as well as opposing the thumb to the second digit of the right hand, and extending the digits of the right hand. 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 Patient also has decreased flexion and extension of the right wrist when compared to the left as well as supination and pronation of the right forearm when compared to the left and flexion extension of the right elbow compared to the left. Abduction of the shoulder is symmetric. Positive pulses on the radial arteries bilaterally. PSYCHIATRIC: Appropriate mood and affect; insight and judgment normal. Course Initial Documented Vital Signs Temperature 98.4 F 09/23/18 20:11 Pulse Rate 99 H 09/23/18 20:11 Respiratory Rate 16 09/23/18 20:11 Blood Pressure 179/107 H 09/23/18 20:11 Pulse Oximetry 95 09/23/18 20:11 Last Documented Vital Signs Temperature 98.4 F 09/23/18 20:11 Pulse Rate 99 H 09/23/18 20:11 Respiratory Rate 16 09/23/18 20:11 Blood Pressure 179/107 H 09/23/18 20:11 Pulse Oximetry 92 L 09/23/18 20:31 Medical Decision Making MDM Narrative Medical decision making narrative: IV was established, labs are drawn and sent, and the patient was placed on cardiac telemetry monitoring and continuous pulse oximetry monitoring. EKG was ordered and interpreted. The patient symptoms started at 1 AM, it is now 8:30 PM, the patient is not a candidate for TPA. The patient stroke scale is 0 as there is no drift but he obviously has decreased strength to the right upper extremity. Stat CT the brain was obtained and a call was placed to the on-call neurologist. I discussed the patient with Dr. Burgess, after discussion it was agreed that an MRI of the brain , cervical spine, and brachial plexus would be ordered to evaluate if this is a central nerve disorder versus possible brachial plexus/cervical disc disorder. Dr. Burgess also recommended Decadron low dose, therefore, patient was administer Decadron 4 mg intravenously. MRI of the brain reveals bilateral parietal lacunar infarct, possibly embolic. Therefore, a call was placed to Dr. Burgess to discuss possible anticoagulation with heparin per Dr. Méndez's recommendations. I discussed the patient with Dr. Burgess who recommends aspirin, hold heparin, echocardiogram/KAVITA and/or carotid ultrasounds will be indicated. The patient will be admitted. I discussed these findings with Dr. Méndez. Medical Screen Exam Complete: Yes Emergency Medical Condition: Yes Differential Diagnosis Differential Diagnosis: Differential diagnosis includes CVA, TIA, peripheral neuropathy, brachial plexus injury, cervical radiculopathy, ascending myopathy, Walter Sylvester. Lab Data Result diagrams: 09/23/18 20:30 09/23/18 20:30 Lab Results 09/23/18 09/23/18 09/23/18 Range/Units 20:30 20:30 20:30 WBC 18.5 H (4.0-11.0) th/mm3 RBC 5.57 (4.50-5.90) mil/mm3 Hgb 19.5 H (13.0-17.0) gm/dL Hct 55.9 H (39.0-51.0) % MCV 100.4 H (80.0-100.0) fL MCH 35.0 H (27.0-34.0) pg MCHC 34.9 (32.0-36.0) % RDW 14.3 (11.6-17.2) % Plt Count 270 (150-450) th/mm3 MPV 8.0 (7.0-11.0) fL Prelim Diff (Auto) Manual diff required WBC Differential Manual diff final Seg Neuts % (Manual) 81 H (16-70) % Band Neuts % (Manual) 1 (0-6) % Lymphocytes % (Manual) 11 (9-44) % Monocytes % (Manual) 7 (0-8) % Abs Neuts (Manual) 15.2 H (1.8-7.7) th/mm3 Differential Comment . Platelet Estimate Normal (Normal) Platelet Morphology Normal (Normal) PT 9.8 (9.8-11.6) sec INR 1.0 Ratio APTT 24.6 (23.4-31.7) sec Sodium 138 (136-145) meq/L Potassium 4.6 (3.5-5.1) meq/L Chloride 108 H (98-107) meq/L Carbon Dioxide 22.4 (21.0-32.0) meq/L Anion Gap 8 (5-15) meq/L BUN 18 (7-18) mg/dL Creatinine 1.06 (0.60-1.30) mg/dL Estimated GFR 71 L (>89) mL/min Random Glucose 141 H (74-106) mg/dL Calcium 8.6 (8.5-10.1) mg/dL Total Bilirubin 0.4 (0.2-1.0) mg/dL AST 31 (15-37) U/L ALT 25 (12-78) U/L Alkaline Phosphatase 78 (45-117) U/L Total Creatine Kinase 73 (39-308) U/L Troponin I Less than 0.02 L (0.02-0.05) ng/mL Total Protein 8.0 (6.4-8.2) g/dL Albumin 3.6 (3.4-5.0) g/dL Serum Alcohol 155 H (0-5) mg/dL Imaging Data Radiologist's impression: Brachial Plexus MRI 09/23/18 20:47 CONCLUSION: 1. Prominent degenerative changes lower cervical spine. 2. Slight motion artifact. 3. Otherwise unremarkable brachioplexus. Head MRI 09/23/18 20:47 CONCLUSION: 1. Bilateral acute parietal lacunar infarcts. This suggests embolic source. ECG Data EKG Prior to Arrival: No Attestation: I personally reviewed and interpreted this ECG as follows: Interpretation: EKG reveals normal sinus rhythm with a rate of 98. No ischemic changes or ectopy noted. Discharge Plan Discharge Disposition Patient Disposition: ED Admit(ED Internal Use Only) Discharge Condition Condition: Stable Discharge Order Discharge Orders: ED Use Only Admit Order (Routine); Ordered 09/23/18 Ordered By: Kenny Peres Discharge Details Diagnosis: Acute CVA (cerebrovascular accident) Physicians Team ED Provider: Kenny Peres Primary Care Provider: UNKNOWN, Attending Provider: Kenneth Méndez Status ED Status: Admitted Patient
[2018-09-23 20:51] LABS: Hematocrit 55.9 % (39.0-51.0); Hemoglobin 19.5 gm/dL (13.0-17.0); Mean Corpuscular HGB Conc 34.9 % (32.0-36.0); Mean Corpuscular Volume 100.4 fL (80.0-100.0); Platelet Count 270 th/mm3 (150-450); Red Blood Count 5.57 mil/mm3 (4.50-5.90); Red Cell Distribution Width 14.3 % (11.6-17.2); White Blood Count 18.5 th/mm3 (4.0-11.0)
[2018-09-23 20:56] LABS: Activated Partial Thrombo Time 24.6 sec (23.4-31.7); Prothrombin Time 9.8 sec (9.8-11.6)
[2018-09-23 21:02] LABS: Alanine Aminotransferase 25 U/L (12-78); Albumin 3.6 g/dL (3.4-5.0); Anion Gap 8 meq/L (5-15); Aspartate Aminotransferase 31 U/L (15-37); Blood Urea Nitrogen 18 mg/dL (7-18); Calcium 8.6 mg/dL (8.5-10.1); Carbon Dioxide 22.4 meq/L (21.0-32.0); Chloride 108 meq/L (98-107); Glomerular Filtration Rate 71 mL/min (>89); Glucose,Random 141 mg/dL (74-106); Potassium 4.6 meq/L (3.5-5.1); Sodium 138 meq/L (136-145)
[2018-09-23 21:05] LABS: Alkaline Phosphatase 78 U/L (45-117)
[2018-09-23 21:18] LABS: Alcohol 155 mg/dL (0-5); Creatine Kinase 73 U/L (39-308)
[2018-09-23 21:54] LABS: Lymphocytes 11 % (9-44); Monocytes 7 % (0-8); Platelet Estimate Normal (Normal); Platelet Morphology Normal (Normal)
--- NOTE | 2018-09-23 22:11 | MR ---
EXAM DATE: 09/23/2018 10:05 PM EST AGE/SEX: 63 years / Male INDICATIONS: CVA. CLINICAL DATA: This is the patient's initial encounter. Patient reports that signs and symptoms have been present for 1 day and indicates a pain score of 0/10. MEDICAL/SURGICAL HISTORY: None. . Left arm, Right elbow. COMPARISON: No prior exams available for comparison. TECHNIQUE: Multiplanar, multisequence examination of the brain was performed without contrast. FINDINGS: Cerebrum: A few scattered areas of high FLAIR abnormality are seen along the cortex in both parietal lobes which demonstrates restricted diffusion consistent with bilateral lacunar infarcts. Similar le patricio also seen within the right occipital lobe The ventricles are normal for age. No evidence of mid line shift, mass lesion or hemorrhage . No extraaxial fluid collections are seen. The pituitary gla nd and suprasellar cistern are normal in configuration. White Matter: Scattered areas of bright T2 significant signal abnormalities are seen in the white ma tter. Posterior Fossa: The cerebellum and brainstem are intact. The 4th ventricle is midline. The cerebel lopontine angle is unremarkable. The cerebellar tonsils are normal in position. Diffusion Imaging: There are bilateral focal areas of restricted diffusion in the posterior parietal lobes. Extracranial: The visualized portions of the orbits and paranasal sinuses are unremarkable. CONCLUSION: 1. Bilateral acute parietal lacunar infarcts. This suggests embolic source. Electronically signed by: Ralf Hernandes MD Board Certified Radiologist 09/23/2018 10:10 PM EST
--- NOTE | 2018-09-23 22:55 | MR ---
EXAM DATE: 09/23/2018 10:43 PM EST AGE/SEX: 63 years / Male INDICATIONS: . Weakness of the radian, median, and ulnar distribution of the right upper extremit y. CLINICAL DATA: This is the patient's initial encounter. Patient reports that signs and symptoms have been present for 1 day and indicates a pain score of 0/10. MEDICAL/SURGICAL HISTORY: None. . Left arm, Right elbow. COMPARISON: No prior exams available for comparison. TECHNIQUE: Multiplanar, multisequence MRI examination of the right brachial plexus was performed wit hout contrast and after intravenous administration of 10 ml Gadavist (gadobutrol) contrast as a cumu lative dose for multiple exams. FINDINGS: There is some motion artifact. Soft Tissues: There is normal signal in the muscular and fatty tissues. No masses are seen. Lungs: The visualized pulmonary apex is unremarkable. Neurovascular: The vascular structures of the supraclavicular region are grossly intact. The visual ized structures in the region of the brachial plexus nerve roots and trunks are intact without mass o r enlargement. Bony Structures: There is homogeneous signal in the marrow of the visualized bones. There are promin ent degenerative changes along the lower cervical spine. CONCLUSION: 1. Prominent degenerative changes lower cervical spine. 2. Slight motion artifact. 3. Otherwise unremarkable brachioplexus. Electronically signed by: Ralf Hernandes MD Board Certified Radiologist 09/23/2018 10:54 PM EST
[2018-09-23] MEDS ORDERED: Gadobutrol PF 10 MMOL/10 ML Vial (for RAD) IV.SIG ONE (22:59)
[2018-09-23] MEDS ORDERED: Dextrose 50% in Water 50 ML Vial IV.PUSH PRN (23:03)
--- NOTE | 2018-09-23 23:08 | MR ---
EXAM DATE: 09/23/2018 10:57 PM EST AGE/SEX: 63 years / Male INDICATIONS: . Radiculitis. CLINICAL DATA: This is the patient's initial encounter. Patient reports that signs and symptoms have been present for 1 day and indicates a pain score of 0/10. MEDICAL/SURGICAL HISTORY: None. . Left arm, Right elbow. COMPARISON: No prior exams available for comparison. TECHNIQUE: Multiplanar, multisequence MRI examination of the cervical spine was performed without an d with 10 ml Gadavist (gadobutrol) contrast as a cumulative dose for multiple exams. FINDINGS: At C2-3 there is no significant abnormality. At C3-4 there is a small central disc protrusion effacing the anterior thecal sac. No significant cor d impingement or foraminal stenosis. At C4-5 there is a broad-based disc osteophyte complex with a minimal impression on the anterior cord . No foraminal stenosis. At C5-6 there is broad-based disc osteophyte complex with moderate AP canal stenosis and flattening o f the cord. Mild foraminal stenosis. At C6-7 there is posterior disc osteophyte complex with moderate AP canal stenosis and mild flattenin g of the cord. Mild foraminal stenosis. At C7-T1 there is no significant abnormality. Slight reversal of normal cervical lordosis. No abnormal enhancing lesions within the canal postcontrast. CONCLUSION: 1. At C5-6-7 broad-based disc osteophyte complex results in moderate AP canal stenosis and mild flat tening cord with mild bilateral foraminal stenosis. Slight reversal of cervical lordosis. Electronically signed by: Gregory Patrick MD Board Certified Radiologist 09/23/2018 11:07 PM EST
--- NOTE | 2018-09-23 23:15 | CT ---
EXAM DATE: 09/23/2018 10:56 PM EST AGE/SEX: 63 years / Male INDICATIONS: Acute neurological change. Numbness in right hand. CLINICAL DATA: This is the patient's initial encounter. Patient reports that signs and symptoms have been present for 1 day and indicates a pain score of 0/10. MEDICAL/SURGICAL HISTORY: None. None. RADIATION DOSE: 40.20 CTDI (mGy) COMPARISON: No prior exams available for comparison. TECHNIQUE: CT of the head without contrast. Using automated exposure control and adjustment of the mA and/or kV according to patient size, radiation dose was kept as low as reasonably achievable to ob tain optimal diagnostic quality images. DICOM format image data is available electronically for revi ew and comparison. FINDINGS: Cerebrum: The ventricles are normal for age. No evidence of midline shift, mass lesion, hemorrhage or acute infarction. No extraaxial fluid collections are seen. Posterior Fossa: The cerebellum and brainstem are intact. The 4th ventricle is midline. The cerebe llopontine angle is unremarkable. Extracranial: The visualized portion of the orbits is intact. Skull: The calvaria is intact. No evidence of skull fracture. CONCLUSION: 1. No acute intracranial abnormalities on head CT. Small infarcts seen bilaterally on MRI performed earlier today are not visualized on head CT. No intracranial hemorrhage. . . Electronically signed by: Gregory Patrick MD Board Certified Radiologist 09/23/2018 11:13 PM EST
--- NOTE | 2018-09-24 02:41 | US ---
EXAM DATE: 09/24/2018 2:05 AM EST AGE/SEX: 63 years / Male INDICATIONS: Right upper extremity weakness. CLINICAL DATA: This is the patient's initial encounter. Patient reports that signs and symptoms have been present for 2 days and indicates a pain score of 0/10. MEDICAL/SURGICAL HISTORY: . Weakness. None. COMPARISON: No prior exams available for comparison. VELOCITY PARAMETERS: ICA/CCA Ratio: Right 0.7 , Left 0.8 ICA: Right 58 cm/sec, Left 74 cm/sec CCA: Right 79 cm/sec, Left 94 cm/sec ECA: Right 100 cm/sec, Left 95 cm/sec Vertebral: Right 60 cm/sec antegrade, Left 52 cm/sec antegrade FINDINGS: Right Carotid: Mild arteriosclerotic plaque is visualized.The waveforms are within normal limits. Left Carotid: No significant plaque is visualized. The waveforms are within normal limits. Other: None. CONCLUSION: 1. Mild visible plaque. No stenosis identified in the carotid arteries bilaterally. Electronically signed by: Gregory Patrick MD Board Certified Radiologist 09/24/2018 2:40 AM EST
--- NOTE | 2018-09-24 04:56 | P.HPIM ---
History of Present Illness Primary Care Physician: UNKNOWN Chief Complaint: Right hand weakness History of Present Illness: 63-year-old male with a history of COPD, tobacco abuse who presents with right upper extremity weakness which began at 1 AM on , and having worsened throughout the day. Patient initially presented with friend who served as a [place]nian continuous absorption process operator in the ER, however not present during my examination.. Patient initially declines continuous absorption process operator, however I went ahead and tried with [employer] for [place]nian continuous absorption process operator, however none available at this time. Patient presents to me the same history as ER, he woke up in the morning with a right-sided weakness which has worsened. He says he is otherwise feeling all right. Denies any chest pain, shortness of breath, nausea , vomiting, diarrhea, constipation. He is asking for coffee. Have deferred family medical history due to translation needed. Inpatient Certification Inpatient Certification: I certify that the inpatient services were ordered in accordance with Medicare regulations governing the order. This includes certification that hospital inpatient services are reasonable and necessary and in the case of services not specified as inpatient-only under 42 CFR 419.22(n), that they are appropriately provided as inpatient services in accordance to with the 2-midnight benchmark under 43 CFR 412.3(e) Estimated Total Length of Stay (Days): 3 Plans for Post Hospital Care: Not yet determined Review of Systems Review of Systems: all other systems reviewed are negative [facility] Medical History Medical History Broken arm (Acute) Broken back (Acute) Patient denies medical problems (Acute) Social History Social History Substance History: No History of Abuse Smoking Status: Current every day smoker Tobacco Type: Cigarettes How Often Do You Have a Drink Containing Alcohol: Never Recent Travel in [facility] within the Last 8 Weeks: No Recent Out of Country Travel within the Last 8 Weeks: No Immunization History Tetanus Immunization: Unsure Medications and Allergies Allergies Allergy/AdvReac Type Severity Reaction Status Date / Time No Known Allergies Allergy Unknown Uncoded 12/07/17 00:16 Home Medications Medication Instructions Recorded Confirmed Type hydrocodone-acetaminophen 1 tab PO TID PRN 09/23/18 09/23/18 History ranitidine HCl mg PO DAILY 09/23/18 History Active Medications: Active Medications Aspirin (Aspirin Chew) 81 mg PO DAILY [facility] Atorvastatin Calcium (Lipitor) 10 mg PO HS [facility] Dextrose (D50w Vial) 50 ml IV.PUSH UNSCH PRN PRN Reason: PER HYPOGLYCEMIA PROTOCOL Glucagon (Glucagon Inj) 1 mg OTHER UNSCH PRN PRN Reason: for Hypoglycemia Protocol Sodium Chloride (Ns Inj) 1,000 mls @ 70 mls/hr IV.CONT .[id number] [facility] Stop: 09/24/18 10:47 Last Admin: 09/23/18 22:00 Dose: 70 mls/hr Insulin Aspart (Novolog Insulin Correctional Sugar Inj) 0 unit SQ ACHS [facility]; Protocol Sodium Chloride (Ns Flush) 2 ml IV.FLUSH PRN PRN PRN Reason: FLUSH AFTER USING IV ACCESS Last Admin: 09/23/18 23:03 Dose: 2 ml Sodium Chloride (Ns Flush) 2 ml IV.FLUSH PRN PRN PRN Reason: FLUSH AFTER USING IV ACCESS Sodium Chloride (Ns Flush) 2 ml IV.FLUSH BID [facility] Physical Exam Vital signs: Vital Signs 09/23/18 20:11 09/23/18 20:31 09/24/18 01:36 Temperature 98.4 F Pulse Rate 99 H 59 L Respiratory Rate 16 16 Blood Pressure 179/107 H 136/72 Pulse Oximetry 95 92 L 94 L 09/24/18 04:36 Temperature Pulse Rate 64 Respiratory Rate 18 Blood Pressure 135/70 Pulse Oximetry 94 L Intake & Output 09/23/18 09/23/18 09/24/18 06:59 18:59 06:59 Weight 101.605 kg Narrative: GENERAL: Patient sitting up in bed. Appears comfortable. Alert oriented x3 SKIN: Warm and dry. HEAD: Atraumatic. Normocephalic. EYES: Pupils equal and round. No scleral icterus. No injection or drainage. ENT: No nasal bleeding or discharge. Mucous membranes pink and moist. NECK: Trachea midline. No JVD. CARDIOVASCULAR: Regular rate and rhythm. RESPIRATORY: No accessory muscle use. Clear to auscultation. Breath sounds equal bilaterally. GASTROINTESTINAL: Abdomen soft, non-tender, nondistended. Hepatic and splenic margins not palpable. MUSCULOSKELETAL: Extremities without clubbing, cyanosis, or edema. No obvious deformities. NEUROLOGICAL: Awake and alert. No obvious cranial nerve deficits. 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 4 out of 5 strength in the right upper extremity, 5 out of 5 strength in left. Bilateral lower extremities with 5 out of 5 strength.. Normal speech. PSYCHIATRIC: Appropriate mood and affect; insight and judgment normal. Results Labs CBC & Chem 7: 09/23/18 20:30 09/23/18 20:[address] 09/23/18 20:28 CONCLUSION: 1. No acute intracranial abnormalities on head CT. Small infarcts seen bilaterally on MRI performed earlier today are not visualized on head CT. No intracranial hemorrhage. . . Brachial Plexus MRI 09/23/18 20:47 CONCLUSION: 1. Prominent degenerative changes lower cervical spine. 2. Slight motion artifact. 3. Otherwise unremarkable brachioplexus. Cervical Spine MRI 09/23/18 20:47 CONCLUSION: 1. At C5-6-7 broad-based disc osteophyte complex results in moderate AP canal stenosis and mild flattening cord with mild bilateral foraminal stenosis. Slight reversal of cervical lordosis. Head MRI 09/23/18 20:47 CONCLUSION: 1. Bilateral acute parietal lacunar infarcts. This suggests embolic source. Carotid Doppler Study 09/24/18 00:00 CONCLUSION: 1. Mild visible plaque. No stenosis identified in the carotid arteries bilaterally. Caprini VTE Risk Assessment Caprini VTE Risk Assessment: Moderate/High Risk (score >= 2) Caprini Risk Assessment Model: Point Value = 1 Point Value = 2 Point Value = 3 Point Value = 5 Age 41-60 Minor surgery BMI > 25 kg/m2 Swollen legs Varicose veins or History of unexplained or recurrent spontaneous Oral contraceptives or hormone replacement Sepsis (< 1 month) Serious lung disease, including pneumonia (< 1 month) Abnormal pulmonary function Acute myocardial infarction Congestive heart failure (< 1 month) History of inflammatory bowel disease Medical patient at bed rest Age 61-74 Arthroscopic surgery Major open surgery (> 45 min) Laparoscopic surgery (> 45 min) Malignancy Confined to bed (> 72 hours) Immobilizing plaster cast Central venous access Age >= 75 History of VTE Family history of VTE Factor V Leiden Prothrombin [id number] Lupus anticoagulant Anticardiolipin antibodies Elevated serum homocysteine Heparin-induced thrombocytopenia Other congenital or acquired thrombophilia Stroke (< 1 month) Elective arthroplasty Hip, pelvis, or leg fracture Acute spinal cord injury (< 1 month) Prophylaxis Regimen: Total Risk Factor Score Risk Level Prophylaxis Regimen 0-1 Low Early ambulation 2 Moderate Order ONE of the following: *Sequential Compression Device (SCD) *Heparin 5000 units SQ BID 3-4 Higher Order ONE of the following medications: *Heparin 5000 units SQ TID *Enoxaparin/Lovenox 40 mg SQ daily (WT < 150 kg, CrCl > 30 mL/min) *Enoxaparin/Lovenox 30 mg SQ daily (WT < 150 kg, CrCl > 10-29 mL/min) *Enoxaparin/Lovenox 30 mg SQ BID (WT < 150 kg, CrCl > 30 mL/min) AND/OR *Sequential Compression Device (SCD) 5 or more Highest Order ONE of the following medications: *Heparin 5000 units SQ TID (Preferred with Epidurals) *Enoxaparin/Lovenox 40 mg SQ daily (WT < 150 kg, CrCl > 30 mL/min) *Enoxaparin/Lovenox 30 mg SQ daily (WT < 150 kg, CrCl > 10-29 mL/min) *Enoxaparin/Lovenox 30 mg SQ BID (WT < 150 kg, CrCl > 30 mL/min) AND *Sequential Compression Device (SCD) Assessment and Plan Plan //Acute right upper extremity weakness //Acute bilateral parietal lacunar infarcts suggesting embolic source MRI ER has discussed with neurology. Will continue on aspirin. Hold off on heparin for now as per neurology. Neurochecks. Carotid Doppler and echocardiogram pending. Follow-up neurology recommendations. //Leukocytosis. 18.5. Neutrophil predominant. Could be stress tolerated. This appears to be chronic. Monitor. //Tobacco abuse. Cessation counseling provided. Discussed Condition With: Patient, nurse, ED physician
[2018-09-24 06:38] LABS: Chol/HDL Ratio 1.95 Ratio; HDL Cholesterol 83.7 mg/dL (40.0-60.0)
[2018-09-24 07:05] LABS: Bacteria,Urine Rare /hpf; Bilirubin,Urine Negative (Negative); Clarity,Urine Clear (Clear); Color,Urine Yellow (Yellw/Straw); Glucose,Urine (UA) 50 mg/dL (Negative); Leukocyte Esterase,Urine Negative (Negative); Nitrite,Urine Negative (Negative); Specific Gravity,Urine 1.018 (1.002-1.035)
[2018-09-24 08:23] LABS: Amphetamine Screen,Urine Neg (Neg); Barbiturate Screen,Urine Neg (Neg); Cannabinoid Screen,Urine Neg (Neg); Cocaine Screen,Urine Neg (Neg)
[2018-09-24 08:24] LABS: Opiate Screen,Urine Neg (Neg)
--- NOTE | 2018-09-24 09:02 | XR ---
EXAM DATE: 09/24/2018 8:53 AM EST AGE/SEX: 63 years / Male INDICATIONS: . Cough and right upper extremity weakens CLINICAL DATA: This is the patient's initial encounter. Patient reports that signs and symptoms have been present for 1 day and indicates a pain score of 0/10. MEDICAL/SURGICAL HISTORY: None. None. COMPARISON: [facility] [place], CHEST PA & LAT, 11/28/2017. . FINDINGS: AP and lateral views of the chest demonstrate the lungs to be symmetrically aerated without evidence of mass, consolidative infiltrate or effusion. There are mild coarse interstitial opacities in both l ungs. The cardiomediastinal contours are unremarkable. Osseous structures are intact. CONCLUSION: 1. Coarse interstitial opacities in the lungs most characteristic of scarring or fibrosis. 2. No new areas of consolidation. Electronically signed by: Tavo Toro MD Board Certified Radiologist 09/24/2018 9:01 AM EST
[2018-09-24] MEDS: Insulin NovoLOG Aspart Correctional Sugar Inj SQ SCH ×4 (09:18→21:23)
--- NOTE | 2018-09-24 10:08 | P.CONNEU ---
History of Present Illness Service: Neurology Primary Care Provider: UNKNOWN Chief Complaint: Right hand weakness History of Present Illness: 63-year-old male admitted for right hand weakness past 2 days. Denies any head or neck trauma or any radicular symptoms emanating from the spine. Does not take any antiplatelet agents. States he smokes 4-5 cigarettes a day. History of chronic pain syndrome for which she is followed by pain management clinic. Denies any history of TIA or previous stroke. Denies any history of hypercoagulable state A. fib DVT. Review of Systems All other systems reviewed negative except as stated in HPI PMFSH - History History Provided By: Patient - Medical History Medical History: Medical History (Last Reviewed 09/24/18 @ 08:49 by Rhea Cunningham) Broken arm Broken back Patient denies medical problems - Tobacco History Tobacco Use In Past 30 Days: Yes Smoking Status: Current every day smoker Tobacco Type: Cigarettes - Alcohol History How Often Do You Have a Drink Containing Alcohol: Never - Substance Use History Substance History: No History of Abuse - Travel History Recent Travel in the [facility] Within the Last 8 Weeks: No Recent Travel Out of the Country Within the Last 8 Weeks: No - Immunization History Tetanus Immunization: Unsure Medications and Allergies Active Medications: Active Medications Aspirin (Aspirin Chew) 81 mg PO DAILY [facility] Last Admin: 09/24/18 09:18 Dose: 81 mg Atorvastatin Calcium (Lipitor) 10 mg PO HS [facility] Dextrose (D50w Vial) 50 ml IV.PUSH UNSCH PRN PRN Reason: PER HYPOGLYCEMIA PROTOCOL Glucagon (Glucagon Inj) 1 mg OTHER UNSCH PRN PRN Reason: for Hypoglycemia Protocol Sodium Chloride (Ns Inj) 1,000 mls @ 70 mls/hr IV.CONT .[id number] [facility] Stop: 09/24/18 10:47 Last Admin: 09/23/18 22:00 Dose: 70 mls/hr Insulin Aspart (Novolog Insulin Correctional Sugar Inj) 0 unit SQ ACHS [facility]; Protocol Last Admin: 09/24/18 09:18 Dose: 1 unit Sodium Chloride (Ns Flush) 2 ml IV.FLUSH PRN PRN PRN Reason: FLUSH AFTER USING IV ACCESS Last Admin: 09/23/18 23:03 Dose: 2 ml Sodium Chloride (Ns Flush) 2 ml IV.FLUSH PRN PRN PRN Reason: FLUSH AFTER USING IV ACCESS Sodium Chloride (Ns Flush) 2 ml IV.FLUSH BID [facility] Last Admin: 09/24/18 09:18 Dose: 2 ml Allergies Allergy/AdvReac Type Severity Reaction Status Date / Time No Known Allergies Allergy Verified 09/24/18 07:08 Home Medications Medication Instructions Recorded Confirmed Type hydrocodone-acetaminophen 1 tab PO TID PRN 09/23/18 09/23/18 History ranitidine HCl mg PO DAILY 09/23/18 History Exam Vital signs: Vital Signs 09/23/18 20:11 09/23/18 20:31 09/24/18 01:36 Temperature 98.4 F Pulse Rate 99 H 59 L Respiratory Rate 16 16 Blood Pressure 179/107 H 136/72 Pulse Oximetry 95 92 L 94 L 09/24/18 04:36 09/24/18 07:10 09/24/18 09:26 Temperature Pulse Rate 64 66 Respiratory Rate 18 14 Blood Pressure 135/70 143/75 H Pulse Oximetry 94 L 96 96 Intake & Output 09/23/18 09/24/18 09/24/18 18:59 06:59 18:59 Weight 101.605 kg Narrative: GENERAL: in NAD, sitting up in chair looks well SKIN: Warm and dry. HEAD: Atraumatic. Normocephalic. EYES: Pupils equal and round. No scleral icterus. ENT: No nasal bleeding or discharge. NECK: Trachea midline. No JVD. CARDIOVASCULAR: Regular rate and rhythm. RESPIRATORY: No accessory muscle use. GASTROINTESTINAL: Abdomen soft, non-tender, nondistended. MUSCULOSKELETAL: Extremities without clubbing, cyanosis, or edema. No obvious deformities. NEUROLOGICAL: Awake and alert. 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 - Constitutional no acute distress - Routine HEENT Exam Head: Present: normocephalic Eye: Present: EOMI Results - Labs CBC & Chem 7: 09/23/18 20:30 09/23/18 20:30 Labs: Laboratory Results - last 24 hr 09/23/18 09/23/18 09/23/18 20:30 20:30 20:30 WBC 18.5 H RBC 5.57 Hgb 19.5 H Hct 55.9 H MCV 100.4 H MCH 35.0 H MCHC 34.9 RDW 14.3 Plt Count 270 MPV 8.0 Prelim Diff (Auto) Manual diff required WBC Differential Manual diff final Seg Neuts % (Manual) 81 H Band Neuts % (Manual) 1 Lymphocytes % (Manual) 11 Monocytes % (Manual) 7 Abs Neuts (Manual) 15.2 H Differential Comment . Platelet Estimate Normal Platelet Morphology Normal PT 9.8 INR 1.0 APTT 24.6 Sodium 138 Potassium 4.6 Chloride 108 H Carbon Dioxide 22.4 Anion Gap 8 BUN 18 Creatinine 1.06 Estimated GFR 71 L POC Glucose Random Glucose 141 H Calcium 8.6 Total Bilirubin 0.4 AST 31 ALT 25 Alkaline Phosphatase 78 Total Creatine Kinase 73 Troponin I Less than 0.02 L Total Protein 8.0 Albumin 3.6 Triglycerides Cholesterol LDL Cholesterol, Calc HDL Cholesterol Cholesterol/HDL Ratio Urine Color Urine Clarity Urine pH Ur Specific [place] Urine Protein Urine Glucose (UA) Urine Ketones Urine Occult Blood Urine Nitrate Urine Bilirubin Urine Urobilinogen Ur Leukocyte Esterase Urine RBC Urine WBC Urine Bacteria Micro UA Comment Ur Microscopic Review Urine Culture Comments Urine Opiates Screen Ur Barbiturates Screen Ur Amphetamines Screen U Benzodiazepines Scrn Urine Cocaine Screen U Cannabinoids Screen Serum Alcohol 155 H 09/24/18 09/24/18 09/24/18 05:50 06:30 06:30 WBC RBC Hgb Hct MCV MCH MCHC RDW Plt Count MPV Prelim Diff (Auto) WBC Differential Seg Neuts % (Manual) Band Neuts % (Manual) Lymphocytes % (Manual) Monocytes % (Manual) Abs Neuts (Manual) Differential Comment Platelet Estimate Platelet Morphology PT INR APTT Sodium Potassium Chloride Carbon Dioxide Anion Gap BUN Creatinine Estimated GFR POC Glucose Random Glucose Calcium Total Bilirubin AST ALT Alkaline Phosphatase Total Creatine Kinase Troponin I Total Protein Albumin Triglycerides 62 Cholesterol 164 LDL Cholesterol, Calc 68 HDL Cholesterol 83.7 H Cholesterol/HDL Ratio 1.95 Urine Color Yellow Urine Clarity Clear Urine pH 7.0 Ur Specific [place] 1.018 Urine Protein Negative Urine Glucose (UA) 50 Urine Ketones Negative Urine Occult Blood Moderate H Urine Nitrate Negative Urine Bilirubin Negative Urine Urobilinogen Less than 2 Ur Leukocyte Esterase Negative Urine RBC 11 H Urine WBC Less than 1 Urine Bacteria Rare H Micro UA Comment Culture not ind Ur Microscopic Review Not Reportable Urine Culture Comments Culture not ind Urine Opiates Screen Neg Ur Barbiturates Screen Neg Ur Amphetamines Screen Neg U Benzodiazepines Scrn Neg Urine Cocaine Screen Neg U Cannabinoids Screen Neg Serum Alcohol 09/24/18 08:49 WBC RBC Hgb Hct MCV MCH MCHC RDW Plt Count MPV Prelim Diff (Auto) WBC Differential Seg Neuts % (Manual) Band Neuts % (Manual) Lymphocytes % (Manual) Monocytes % (Manual) Abs Neuts (Manual) Differential Comment Platelet Estimate Platelet Morphology PT INR APTT Sodium Potassium Chloride Carbon Dioxide Anion Gap BUN Creatinine Estimated GFR POC Glucose 171 H Random Glucose Calcium Total Bilirubin AST ALT Alkaline Phosphatase Total Creatine Kinase Troponin I Total Protein Albumin Triglycerides Cholesterol LDL Cholesterol, Calc HDL Cholesterol Cholesterol/HDL Ratio Urine Color Urine Clarity Urine pH Ur Specific [place] Urine Protein Urine Glucose (UA) Urine Ketones Urine Occult Blood Urine Nitrate Urine Bilirubin Urine Urobilinogen Ur Leukocyte Esterase Urine RBC Urine WBC Urine Bacteria Micro UA Comment Ur Microscopic Review Urine Culture Comments Urine Opiates Screen Ur Barbiturates Screen Ur Amphetamines Screen U Benzodiazepines Scrn Urine Cocaine Screen U Cannabinoids Screen Serum Alcohol - Imaging Impressions Head CT 09/23/18 20:28 CONCLUSION: 1. No acute intracranial abnormalities on head CT. Small infarcts seen bilaterally on MRI performed earlier today are not visualized on head CT. No intracranial hemorrhage. . . Brachial Plexus MRI 09/23/18 20:47 CONCLUSION: 1. Prominent degenerative changes lower cervical spine. 2. Slight motion artifact. 3. Otherwise unremarkable brachioplexus. Cervical Spine MRI 09/23/18 20:47 CONCLUSION: 1. At C5-6-7 broad-based disc osteophyte complex results in moderate AP canal stenosis and mild flattening cord with mild bilateral foraminal stenosis. Slight reversal of cervical lordosis. Head MRI 09/23/18 20:47 CONCLUSION: 1. Bilateral acute parietal lacunar infarcts. This suggests embolic source. Carotid Doppler Study 09/24/18 00:00 CONCLUSION: 1. Mild visible plaque. No stenosis identified in the carotid arteries bilaterally. Chest X-Ray 09/24/18 00:00 CONCLUSION: 1. Coarse interstitial opacities in the lungs most characteristic of scarring or fibrosis. 2. No new areas of consolidation. Review/Management - Diagnosis (1) Acute embolic stroke Code(s): I63.9 - Cerebral infarction, unspecified Status: Acute Current Visit: Yes (2) Tobacco use Code(s): Z72.0 - Tobacco use Status: Acute Current Visit: Yes - Review/Management Plan: Acute tiny bihemispheric high posterior frontal parietal region infarcts Risk factors include tobacco use, polycythemia Carotid ultrasound negative for any sniffing vaso-occlusive lesion Lipid panel in range Recommendations Aspirin Follow-up 2D echo Cardiac evaluation for KAVITA to exclude valvular lesion versus proximal aortic atheromatous plaque. Consideration event monitor versus loop recorder Hematological evaluation to exclude hypercoagulable state, cancer, evaluation of polycythemia. History of chronic tobacco use Tobacco cessation Follow-up fasting lipids Therapy Behavioral modification and risk factor reduction. Weight loss, blood pressure control, blood sugar control, lipid control. Exercise
--- NOTE | 2018-09-24 10:11 | P.PNIM ---
Mr. De La Vega is a pleasant 63-year-old male who was admitted to the hospital on 09/24 due to right hand weakness for 1-2 days. Workup indicated likely embolic stroke. Patient does not have any history of A. fib or previous TIA or stroke. He admits to drinking but does not smoke or use any illicit drugs. Neurology evaluated patient. Per discussion with neurology, cardiology was consulted for possible KAVITA as well as a loop recorder placement. Patient is hemodynamically stable currently. Lipid profile shows cholesterol 164, LDL 68 and HDL 83.7. Will increase Lipitor to 20 mg nightly. Continue aspirin.
--- NOTE | 2018-09-24 15:38 | MB ---
cc: Chris Mejia MD DATE: 09/24/2018 REASON FOR CONSULTATION: Transesophageal echocardiography, consider loop recorder placement. HISTORY OF PRESENT ILLNESS: The patient is a 63-year-old white male with a history of COPD, who presented to the hospital with complaints of right hand weakness for the past 2 days. He was found to have bilateral acute parietal lacunar infarcts on MRI of the brain. The patient denies chest pain, palpitations, lightheadedness, syncope, near syncope, shortness of breath, pedal edema, paroxysmal nocturnal dyspnea. Since coming into the hospital, the right hand weakness has improved. PAST MEDICAL HISTORY: COPD. CARDIAC MEDICATIONS AT HOME: None. CARDIAC MEDICATIONS: Here in the hospital: 1. Aspirin 81 mg p.o. daily. 2. Lipitor 20 mg p.o. at bedtime. ALLERGIES: NO KNOWN DRUG ALLERGIES. FAMILY HISTORY: Noncontributory. There is no significant family history of early myocardial infarction. SOCIAL HISTORY: The patient smokes a few cigarettes per day. He denies alcohol abuse. REVIEW OF SYSTEMS: As in the history of present illness, otherwise negative or noncontributory. He also denies headache, abdominal pain, melena, dyspepsia, bright red blood per rectum, cough, wheezing, fevers. PHYSICAL EXAMINATION: VITAL SIGNS: Blood pressure 147/83 with a pulse of 61, respirations 18. GENERAL: He is a well-developed, well-nourished white male, in no acute distress. NECK: Jugular venous pressure is normal. Carotid pulses are 2+ bilaterally and without bruits. CHEST: Reveals clear nguyen. CARDIAC: He has a regular rhythm and rate without S3, S4, or murmur. ABDOMEN: He has a soft, nontender abdomen. Bowel sounds are present. There is no definite hepatosplenomegaly. EXTREMITIES: Reveals no clubbing, cyanosis or edema. DIAGNOSTIC DATA: EKG shows normal sinus rhythm, normal EKG. Chest x-ray shows no acute disease. LABORATORY DATA: WBC 18.5, hemoglobin 19.5, platelets 270,000. Potassium 4.6, BUN 18, creatinine 1.06. Negative cardiac enzymes. Total cholesterol 164, LDL 68, HDL 84, triglycerides 62, glucose 242. IMPRESSION: Acute bilateral parietal CVAs in this 63-year-old white male with a history of chronic obstructive pulmonary disease. I have been asked to see the patient for transesophageal echocardiography and possibly loop recorder implant. As it appears his CVAs are embolic in nature, I would agree with the need for transesophageal echocardiography to rule out a cardiac source of embolism as well as an intracardiac shunt. With respect to loop recorder implant, I overall would favor a 3-week monitor. At times, the P-wave sensitivity of the loop recorders are very poor, and benign rhythms such as sinus rhythm with premature atrial complexes will appear to be atrial fibrillation, and the patient would be unnecessarily subjected to long-term anticoagulation therapy. RECOMMENDATIONS: 1. Transesophageal echocardiography in the morning. 2. We will set the patient up for a 3-week monitor upon discharge. MD BABAK Mata/jorge , 03:04 PM , 03:13 PM SENAIT
[2018-09-24 15:53] LABS: Hemoglobin A1c 6.6 % (4.3-6.0)
--- NOTE | 2018-09-24 16:21 | ECHRPT ---
Indication: cva/tia CONCLUSIONS Normal left ventricular size. Wall thickness is normal. The left ventricular systolic function is normal with an estimated ejection fraction in the range of 55-60%. Trace mitral valve regurgitation. The estimated pulmonary arterial pressure is 24mmHg. There is mild tricuspid valve regurgitation. BP: / HR: Rhythm: MEASUREMENTS (Male / Female) Normal Values Technical Quality:Technically difficult study 2D ECHO LV Diastolic Diameter PLAX 4.7 cm 4.2 - 5.9 / 3.9 - 5.3 cm LV Systolic Diameter PLAX 3.3 cm IVS Diastolic Thickness 0.9 cm 0.6 - 1.0 / 0.6 - 0.9 cm LVPW Diastolic Thickness 1.3 cm 0.6 - 1.0 / 0.6 - 0.9 cm LV Relative Wall Thickness 0.5 RV Internal Dim ED PLAX 3.1 cm LVOT Diameter 2.0 cm Aortic Root Diameter 3.2 cm LA Systolic Diameter LX 3.9 cm 3.0 - 4.0 / 2.7 - 3.8 cm M-MODE Aortic Root Diameter MM 3.5 cm LA Systolic Diameter MM 3.7 cm LA Ao Ratio MM 1.1 AV Cusp Separation MM 2.1 cm DOPPLER AV Peak Velocity 86.0 cm/s AV Peak Gradient 3.0 mmHg LVOT Peak Velocity 56.3 cm/s LVOT Peak Gradient 1.3 mmHg AV Area Cont Eq pk 2.1 cm Mitral E Point Velocity 68.6 cm/s Mitral A Point Velocity 72.1 cm/s Mitral E to A Ratio 1.0 LV E' Septal Velocity 12.6 cm/s Mitral E to LV E' Septal Ratio 5.4 TR Peak Velocity 185.0 cm/s TR Peak Gradient 13.7 mmHg Right Atrial Pressure 10.0 mmHg Pulmonary Artery Systolic Pressu 23.7 mmHg Right Ventricular Systolic Press 23.7 mmHg PV Peak Velocity 115.0 cm/s PV Peak Gradient 5.3 mmHg FINDINGS LEFT VENTRICLE Normal left ventricular size. Wall thickness is normal. The left ventricular systolic function is normal with an estimated ejection fraction in the range of 55-60%. RIGHT VENTRICLE Normal right ventricular size and systolic function. LEFT ATRIUM The left atrial size is normal. RIGHT ATRIUM The right atrial size is normal. ATRIAL SEPTUM Normal atrial septal thickness without atrial level shunting by limited color doppler interrogation. AORTA The aortic root and proximal ascending aorta are normal in size on limited imaging. MITRAL VALVE Trace mitral valve regurgitation. AORTIC VALVE Trileaflet aortic valve. No aortic valve stenosis or regurgitation. TRICUSPID VALVE The estimated pulmonary arterial pressure is 24mmHg. There is mild tricuspid valve regurgitation. PULMONARY VALVE No pulmonary valve regurgitation or stenosis. VESSELS The inferior vena cava is normal in size. PERICARDIUM No pericardial effusion. Norm Colin MD, FACC, FSCAI (Electronically Signed) Final Date:24 September 2018 16:20
--- NOTE | 2018-09-24 17:39 | ECG ---
Date Performed: 09/23/2018 Time Performed: 20:29:54 PTAGE: 63 years EKG: Sinus rhythm NORMAL ECG INTERPRETATION BASED ON A DEFAULT AGE OF 41 YEARS PREVIOUS TRACING : 12/06/2017 21.33 Since the previous tracing, no significant change not ed DOCTOR: Norm Colin Interpretating Date/Time 09/24/2018 17:36:36
[2018-09-25] MEDS ORDERED: Sodium Chlor 0.9% Inj 500 ML IV.CONT ONE (06:30)
[2018-09-25] MEDS ORDERED: Chlorhexidine Gluconate 2% 1 Pack (2 Cloths) TOPICAL ONE (06:30)
[2018-09-25] MEDS ORDERED: Lidocaine PF 1% Inj 5 ML Syringe INFILTRATN ONE (07:30)
--- NOTE | 2018-09-25 07:45 | P.PNNEU ---
Subjective Subjective Comments: no cp, no rosado, no dyspnea. feels rt hand is stronger Active Medications: Active Medications Aspirin (Aspirin Chew) 81 mg PO DAILY [facility] Last Admin: 09/24/18 09:18 Dose: 81 mg Atorvastatin Calcium (Lipitor) 20 mg PO HS [facility] Last Admin: 09/24/18 21:22 Dose: 20 mg Dextrose (D50w Vial) 50 ml IV.PUSH UNSCH PRN PRN Reason: PER HYPOGLYCEMIA PROTOCOL Glucagon (Glucagon Inj) 1 mg OTHER UNSCH PRN PRN Reason: for Hypoglycemia Protocol Lactated Ringer's (Lr 1000 Ml Inj) 1,000 mls @ 30 mls/hr IV.CONT .Q24H ONE Stop: 09/26/18 06:29 Sodium Chloride (Ns Inj) 500 mls @ 30 mls/hr IV.CONT .[id number] ONE Stop: 09/25/18 23:09 Insulin Aspart (Novolog Insulin Correctional Sugar Inj) 0 unit SQ ACHS [facility]; Protocol Last Admin: 09/24/18 21:23 Dose: 9 unit Sodium Chloride (Ns Flush) 2 ml IV.FLUSH PRN PRN PRN Reason: FLUSH AFTER USING IV ACCESS Sodium Chloride (Ns Flush) 2 ml IV.FLUSH BID [facility] Last Admin: 09/24/18 21:23 Dose: 2 ml Allergies/Adverse Reactions: Allergies Allergy/AdvReac Type Severity Reaction Status Date / Time No Known Allergies Allergy Verified 09/24/18 07:08 Review of Systems All other systems reviewed negative except as stated in HPI Physical Exam Vital signs: Vital Signs 09/24/18 09:26 09/24/18 11:00 09/24/18 12:38 Temperature Pulse Rate 76 61 Respiratory Rate 18 18 Blood Pressure 133/71 147/83 H Pulse Oximetry 96 96 95 09/24/18 17:39 09/24/18 20:25 09/25/18 00:20 Temperature 98 F 97.6 F Pulse Rate 77 60 62 Respiratory Rate 16 20 20 Blood Pressure 137/84 153/82 H 139/71 Pulse Oximetry 95 95 95 09/25/18 04:15 Temperature 98.2 F Pulse Rate 60 Respiratory Rate 20 Blood Pressure 138/68 Pulse Oximetry 95 Intake & Output 09/24/18 09/25/18 09/25/18 18:59 06:59 18:59 Intake Total 1000 / 1000 Balance 1000 / 1000 Weight 109.4 kg Intake: IV 1000 / 1000 NS Inj 1,000 ML @ 70 mls/hr IV. 1000 / 1000 CONT .[id number] [facility] Rx#:[id number] Other: # Voids 1 5 Narrative: GENERAL: in NAD, sitting up in chair looks well SKIN: Warm and dry. HEAD: Atraumatic. Normocephalic. EYES: Pupils equal and round. No scleral icterus. ENT: No nasal bleeding or discharge. NECK: Trachea midline. No JVD. CARDIOVASCULAR: Regular rate and rhythm. RESPIRATORY: No accessory muscle use. GASTROINTESTINAL: Abdomen soft, non-tender, nondistended. MUSCULOSKELETAL: Extremities without clubbing, cyanosis, or edema. No obvious deformities. NEUROLOGICAL: Awake and alert. 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 - Constitutional no acute distress - Routine HEENT Exam Head: Present: normocephalic Objective Laboratory Results - last 24 hr 09/24/18 09/24/18 09/24/18 05:50 06:30 08:49 POC Glucose 171 H Hemoglobin A1c 6.6 H Urine Opiates Screen Neg Ur Barbiturates Screen Neg Ur Amphetamines Screen Neg U Benzodiazepines Scrn Neg Urine Cocaine Screen Neg U Cannabinoids Screen Neg 09/24/18 09/24/18 09/24/18 11:31 17:34 21:08 POC Glucose 242 H 352 H 409 H Hemoglobin A1c Urine Opiates Screen Ur Barbiturates Screen Ur Amphetamines Screen U Benzodiazepines Scrn Urine Cocaine Screen U Cannabinoids Screen 09/25/18 06:08 POC Glucose 197 H Hemoglobin A1c Urine Opiates Screen Ur Barbiturates Screen Ur Amphetamines Screen U Benzodiazepines Scrn Urine Cocaine Screen U Cannabinoids Screen Review/Management - Diagnosis (1) Acute embolic stroke Code(s): I63.9 - Cerebral infarction, unspecified Status: Acute (2) Tobacco use Code(s): Z72.0 - Tobacco use Status: Acute - Review/Management Plan: Acute tiny bihemispheric high posterior frontal parietal region infarcts Risk factors include tobacco use, polycythemia Carotid ultrasound negative for any sniffing vaso-occlusive lesion Lipid panel in range Recommendations neuro stable Aspirin Follow-up 2D echo Cardiac evaluation for KAVITA to exclude valvular lesion versus proximal aortic atheromatous plaque. Consideration event monitor versus loop recorder Hematological evaluation to exclude hypercoagulable state, cancer, evaluation of polycythemia. History of chronic tobacco use Tobacco cessation Follow-up fasting lipids Therapy Behavioral modification and risk factor reduction. Weight loss, blood pressure control, blood sugar control, lipid control. Exercise
--- NOTE | 2018-09-25 07:55 | P.PNCA ---
Subjective Interval history: No CP, dyspnea, palpitations. Medications and Allergies Active Medications: Active Cardiac Medications Aspirin (Aspirin Chew) 81 mg PO DAILY [facility] Last Admin: 09/24/18 09:18 Dose: 81 mg Atorvastatin Calcium (Lipitor) 20 mg PO HS [facility] Last Admin: 09/24/18 21:22 Dose: 20 mg Allergies Allergy/AdvReac Type Severity Reaction Status Date / Time No Known Allergies Allergy Verified 09/24/18 07:08 Home Medications Medication Instructions Recorded Confirmed Type hydrocodone-acetaminophen 1 tab PO TID PRN 09/23/18 09/23/18 History ranitidine HCl mg PO DAILY 09/23/18 History Physical Exam Vital signs: Vital Signs 09/24/18 09:26 09/24/18 11:00 09/24/18 12:38 Temperature Pulse Rate 76 61 Respiratory Rate 18 18 Blood Pressure 133/71 147/83 H Pulse Oximetry 96 96 95 09/24/18 17:39 09/24/18 20:25 09/25/18 00:20 Temperature 98 F 97.6 F Pulse Rate 77 60 62 Respiratory Rate 16 20 20 Blood Pressure 137/84 153/82 H 139/71 Pulse Oximetry 95 95 95 09/25/18 04:15 Temperature 98.2 F Pulse Rate 60 Respiratory Rate 20 Blood Pressure 138/68 Pulse Oximetry 95 Intake & Output 09/24/18 09/25/18 09/25/18 18:59 06:59 18:59 Intake Total 1000 / 1000 Balance 1000 / 1000 Weight 109.4 kg Intake: IV 1000 / 1000 NS Inj 1,000 ML @ 70 mls/hr IV. 1000 / 1000 CONT .[id number] [facility] Rx#:[id number] Other: # Voids 1 5 - Constitutional no acute distress - Routine Neck Exam Absent: JVD - Routine Respiratory Exam Present: CTA bilaterally - Routine Cardiovascular Exam Present: RRR, S1, S2. Absent: murmur, gallop - Routine Abdominal Exam Present: soft, normoactive bowel sounds. Absent: tenderness - Routine Extremities Exam Absent: cyanosis, clubbing, edema Results 09/23/18 20:30 09/23/18 20:30 Cardiac Enzymes 09/23/18 Range/Units 20:30 AST 31 (15-37) U/L Troponin I Less than 0.02 L (0.02-0.05) ng/mL Coagulation 09/23/18 Range/Units 20:30 PT 9.8 (9.8-11.6) sec APTT 24.6 (23.4-31.7) sec Lipids 09/24/18 Range/Units 05:50 Triglycerides 62 (42-150) mg/dL Cholesterol 164 (120-200) mg/dL HDL Cholesterol 83.7 H (40.0-60.0) mg/dL Cholesterol/HDL Ratio 1.95 Ratio CBC 09/23/18 Range/Units 20:30 WBC 18.5 H (4.0-11.0) th/mm3 RBC 5.57 (4.50-5.90) mil/mm3 Hgb 19.5 H (13.0-17.0) gm/dL Hct 55.9 H (39.0-51.0) % Plt Count 270 (150-450) th/mm3 Comprehensive Metabolic Panel 09/23/18 Range/Units 20:30 Sodium 138 (136-145) meq/L Potassium 4.6 (3.5-5.1) meq/L Chloride 108 H (98-107) meq/L Carbon Dioxide 22.4 (21.0-32.0) meq/L BUN 18 (7-18) mg/dL Creatinine 1.06 (0.60-1.30) mg/dL Calcium 8.6 (8.5-10.1) mg/dL AST 31 (15-37) U/L ALT 25 (12-78) U/L Alkaline Phosphatase 78 (45-117) U/L Total Protein 8.0 (6.4-8.2) g/dL Albumin 3.6 (3.4-5.0) g/dL Intake and Output 09/24/18 09/25/18 09/25/18 22:59 06:59 14:59 Other: # Voids 5 Weight 109.4 kg - Imaging and Cardiology Imaging: Impressions Head CT 09/23/18 20:28 CONCLUSION: 1. No acute intracranial abnormalities on head CT. Small infarcts seen bilaterally on MRI performed earlier today are not visualized on head CT. No intracranial hemorrhage. . . Brachial Plexus MRI 09/23/18 20:47 CONCLUSION: 1. Prominent degenerative changes lower cervical spine. 2. Slight motion artifact. 3. Otherwise unremarkable brachioplexus. Cervical Spine MRI 09/23/18 20:47 CONCLUSION: 1. At C5-6-7 broad-based disc osteophyte complex results in moderate AP canal stenosis and mild flattening cord with mild bilateral foraminal stenosis. Slight reversal of cervical lordosis. Head MRI 09/23/18 20:47 CONCLUSION: 1. Bilateral acute parietal lacunar infarcts. This suggests embolic source. Carotid Doppler Study 09/24/18 00:00 CONCLUSION: 1. Mild visible plaque. No stenosis identified in the carotid arteries bilaterally. Chest X-Ray 09/24/18 00:00 CONCLUSION: 1. Coarse interstitial opacities in the lungs most characteristic of scarring or fibrosis. 2. No new areas of consolidation. Assessment and Plan - Assessment (1) Acute CVA (cerebrovascular accident) Code(s): I63.9 - Cerebral infarction, unspecified Status: Acute Plan: Stable cardiac status. KAVITA today unremarkable. No cardiac source of embolism seen. No intracardiac shunt. No significant plaquing in aortic root and aortic arch. Will set patient up for 3 week monitor as an outpatient. - Plan Code Status: full code
--- NOTE | 2018-09-25 08:26 | ECHRPT ---
Indication: CVA/TIA CONCLUSIONS Normal transesophageal echo. No cardiac source of embolism or intracardiac shunt is identified. BP: / HR: Rhythm: Technical Quality: Medications Complications Proc. Components FINDINGS LEFT VENTRICLE Normal left ventricular size and wall thickness. The left ventricular systolic function is normal wi th an estimated ejection fraction in the range of 60-65%. Normal wall motion. RIGHT VENTRICLE Normal right ventricular size and systolic function. LEFT ATRIUM The left atrial size is normal. RIGHT ATRIUM The right atrial size is normal. ATRIAL APPENDAGES Normal left atrial appendage size with no evidence of thrombus formation. ATRIAL SEPTUM Normal atrial septal thickness without atrial level shunting by color doppler interrogation and sali ne contrast study. AORTA The aortic root and proximal ascending aorta are normal in size on limited imaging. No significant atherosclerotic plaquing is visualized. MITRAL VALVE Structurally normal mitral valve. No mitral valve stenosis or regurgitation. AORTIC VALVE Trileaflet aortic valve. No aortic valve stenosis or regurgitation. TRICUSPID VALVE Structurally normal tricuspid valve. No tricuspid valve stenosis or regurgitation. VESSELS The inferior vena cava is normal in size. PULMONARY VALVE The pulmonary valve is not well visualized. PERICADIUM No pericardial effusion. Chris Mejia MD (Electronically Signed) Final Date:25 September 2018 08:24
[2018-09-25] MEDS: Insulin NovoLOG Aspart Correctional Sugar Inj SQ SCH ×4 (11:03→23:06)
--- NOTE | 2018-09-25 11:15 | HM ---
Date Performed: 09/24/2018 Time Performed: 10:04:00 HOOKUP DATE: 09/24/18 10:04:00 AM Carri ANALYSIS START TIME: 09/24/2018 10:09:00 AM ANALYSIS END TIME: 09/25/2018 9:52:05 AM PATIENT AGE: 63 PATIENT HEIGHT PATIENT WEIGHT DRUG LIST PATIENT DIAGNOSIS: PIERCE;ATERAL ACUTE PARIETAL INFARCTION TEST NARRATIVE: The patient's average heart rate was 63 BPM. Heart rates greater than 120 B PM were noted < 1% of the time. Heart rates less than 50 BPM were noted 31% of the time. No paus es exceeding 2.0 seconds were noted. 2368 ventricular ectopics, which represented 3% of the total beat count, were noted. The highest ventricular ectopic frequency occurred from 09:00 AM to 10:00 A M Fri. During this time 139 VE(s) occurred. Ventricular ectopics were observed as 2350 isolated valentine t(s) and as 9 couplet(s). No runs were noted. 93 supraventricular ectopics, which represented < 1% of the total beat count, were noted. The highest supraventricular ectopic frequency occurred from 04:00 PM to 05:00 PM Carri. During this time 11 SVE(s) occurred. No episodes of ST depression (de fined as -1.0 mm or more) were noted in channel 1. No episodes of ST depression (defined as -1.0 mm or more) were noted in channel 2. No episodes of ST depression (defined as -1.0 mm or more) were not ed in channel 3. TEST INTERPRETATION: BENIGN HOLTER MONITOR. Signed by : Chris Mejia
--- NOTE | 2018-09-25 18:08 | P.CON ---
History of Present Illness Service: Hematology/oncology. Consult date: 09/25/18 Requesting Physician: Vignesh Stokes Reason for Consult: Embolic strokes. Primary Care Provider: UNKNOWN Chief Complaint: Right hand weakness. History of Present Illness: Mr. De La Vega is a 63-year-old male with an extensive past history of tobaccoism who presents the hospital with weakness of his right thumb and right hand. He also reports chronic arthritis like pain in his neck, right elbow and left shoulder. He underwent imaging studies including a CT scan of the head performed on 09/23 which revealedNo acute intracranial abnormalities p, to further evaluate patient underwent additional studies including an MRI of the head which revealed bilateral acute parietal lacunar infarcts, suggesting embolic source. Additional imaging studies included carotid artery Doppler studies which revealed mild visible plaque without stenosis in the carotid arteries bilaterally. Patient was evaluated by neurology and cardiology. He underwent KAVITA earlier today which revealed no evidence of intra-ventricular/valvular plaques or vegetations. He has been initiated on aspirin 81 mg once daily and has also been initiated on atorvastatin. Hematology is been asked to see him for evaluation for possible prothrombotic condition. Patient was noted to have elevated hemoglobin and hematocrit levels, he does smoke up to 8 cigars daily. Review of Systems Constitutional: Denies anorexia, Denies daytime sleepiness, Denies fever(s), Denies headache(s), Denies lack of energy, Denies weakness, Denies weight gain Eyes: Denies change in vision Ears, Nose, Mouth, and Throat: Denies change in voice, Denies sinus pressure, Denies sore throat, Denies throat swelling Cardiovascular: Reports shortness of breath, Reports shortness of breath with activity, Denies chest pain, Denies shortness of breath when lying down, Denies shortness of breath causing sudden awakening, Denies slow heart rate Respiratory: Reports cough, Reports shortness of breath with activity, Denies change in phlegm color, Denies chest congestion, Denies coughing up blood, Denies excessive phlegm production Gastrointestinal: Denies abdominal pain, Denies change in stools, Denies constipation, Denies feeling full early, Denies heartburn, Denies incontinent of stools, Denies vomiting Genitourinary: Denies blood in urine Musculoskeletal: Denies back pain Skin/Breast: Denies skin pain, Denies skin ulcer Neurologic: Denies abnormal hearing, Denies dizziness, Denies memory loss Psychiatric: Denies abnormal sleep pattern, Denies anxiety Endocrine: Denies cold intolerance Hematologic/Lymphatic: Denies easy bleeding Allergic/Immunologic: Denies GI upset with certain foods PMFSH - History History Provided By: Patient - Medical History Medical History: Medical History (Last Updated 09/25/18 @ 18:02 by Jayy Miguel MD) Broken arm Broken back Patient denies medical problems Tobacco abuse - Surgical History Surgical History: Surgical History (Last Updated 09/25/18 @ 18:03 by Jayy Miguel MD) H/O elbow surgery H/O shoulder surgery - Social History I have reviewed the patient's Social History: Yes - Tobacco History Tobacco Use In Past 30 Days: Yes Smoking Status: Current every day smoker Tobacco Type: Cigars - Alcohol History How Often Do You Have a Drink Containing Alcohol: Never - Substance Use History Substance History: No History of Abuse - Travel History Recent Travel in the [place] Within the Last 8 Weeks: No Recent Travel Out of the Country Within the Last 8 Weeks: No - Immunization History Tetanus Immunization: Unsure Medications and Allergies Active Medications: Active Medications Aspirin (Aspirin Chew) 81 mg PO DAILY [facility] Last Admin: 09/25/18 11:02 Dose: 81 mg Atorvastatin Calcium (Lipitor) 20 mg PO HS [facility] Last Admin: 09/24/18 21:22 Dose: 20 mg Dextrose (D50w Vial) 50 ml IV.PUSH UNSCH PRN PRN Reason: PER HYPOGLYCEMIA PROTOCOL Glucagon (Glucagon Inj) 1 mg OTHER UNSCH PRN PRN Reason: for Hypoglycemia Protocol Lactated Ringer's (Lr 1000 Ml Inj) 1,000 mls @ 30 mls/hr IV.CONT .Q24H ONE Stop: 09/26/18 06:29 Sodium Chloride (Ns Inj) 500 mls @ 30 mls/hr IV.CONT .[id number] ONE Stop: 09/25/18 23:09 Insulin Aspart (Novolog Insulin Correctional Sugar Inj) 0 unit SQ ACHS [facility]; Protocol Last Admin: 09/25/18 12:54 Dose: 5 unit Sodium Chloride (Ns Flush) 2 ml IV.FLUSH PRN PRN PRN Reason: FLUSH AFTER USING IV ACCESS Sodium Chloride (Ns Flush) 2 ml IV.FLUSH BID [facility] Last Admin: 09/24/18 21:23 Dose: 2 ml Allergies Allergy/AdvReac Type Severity Reaction Status Date / Time No Known Allergies Allergy Verified 09/24/18 07:08 Home Medications Medication Instructions Recorded Confirmed Type hydrocodone-acetaminophen 1 tab PO TID PRN 09/23/18 09/23/18 History ranitidine HCl mg PO DAILY 09/23/18 History Physical Exam Vital signs: Vital Signs 09/24/18 20:25 09/25/18 00:20 09/25/18 04:15 Temperature 98 F 97.6 F 98.2 F Pulse Rate 60 62 60 Respiratory Rate 20 20 20 Blood Pressure 153/82 H 139/71 138/68 Pulse Oximetry 95 95 95 09/25/18 08:00 09/25/18 12:00 Temperature 97.8 F 98.1 F Pulse Rate 51 L 74 Respiratory Rate 20 18 Blood Pressure 154/69 H 123/61 Pulse Oximetry 95 95 Intake & Output 09/24/18 09/25/18 09/25/18 18:59 06:59 18:59 Intake Total 1000 / 1000 Balance 1000 / 1000 Weight 109.4 kg Intake: IV 1000 / 1000 NS Inj 1,000 ML @ 70 mls/hr IV. 1000 / 1000 CONT .[id number] [facility] Rx#:[id number] Other: # Voids 1 5 Narrative: General physical appearance: Patient is a middle-aged male, he appears to be tall, he is heavyset, he has a garett complexion. HEENT: Head atraumatic normocephalic, conjunctivae are non-pale sclerae anicteric. Oral exam hyperemic mucosal membranes. No masses noted. Neck exam: No cervical lymphadenopathy. Respiratory exam: Good air movement bilaterally prolonged expiratory phase, no rhonchi, rales or wheezes. Cardiac exam: Regular rate rhythm S1-S2 no obvious murmurs rubs gallops. Abdominal exam: Obese belly, soft nontender nondistended no palpable organ enlargement. Lower tremors: No pretibial edema no calf tenderness. Skin examination: Heavily tattooed. Psychiatric: Awake, alert, oriented, appropriate and understands our conversations. 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 This appears chronic. He otherwise has 5 x 5 strength of the extensor and flexors muscle groups of the upper and lower extremities. He does seem to have a little bit of a stutter when he tries to speak but I do not think this is expressive aphasia I suspect this is rather related to a stutter and the language barrier. Results - Labs CBC & Chem 7: 09/23/18 20:30 09/23/18 20:30 Labs: Laboratory Results - last 24 hr 09/24/18 09/24/18 09/25/18 05:50 21:08 06:08 POC Glucose 409 H 197 H Hemoglobin A1c 6.6 H 09/25/18 09/25/18 09/25/18 08:52 12:22 17:29 POC Glucose 158 H 279 H 148 H Hemoglobin A1c Assessment and Plan - Plan Mr. De La Vega is a 63-year-old male heavy smoker who presents the hospital with reports of weakness of his right hand, in particular he reports muscle atrophy along the thenar eminence of the right hand. He also reports neck pain, found to have extensive degenerative changes in the cervical spine including what appears to be effacement of the spinal cord secondary to a large osteophyte. Hematology has been asked to see him because he was found on brain imaging to have bilateral parietal lobe lacunar infarcts concerning for embolic phenomenon. A prothrombotic workup has been ordered. Recommendations: 1. Suspected hyper coagulable state: Prothrombotic workup ordered; studies include protein C and protein S antigen and activity levels, factor V Leiden mutation, prothrombin gene mutation, antiphospholipid antibodies, circulating lupus anticoagulant, factor VIII levels. And homocysteine level. 2. Elevated hemoglobin hematocrit: Likely secondary to extensive tobaccoism. I requested carboxy hemoglobin levels to be done. Smoking cessation advice provided. Follow-up in the outpatient setting will be arranged to discuss results of her thrombotic workup.
--- NOTE | 2018-09-25 18:33 | P.CONREH ---
History of Present Illness Service: Physical medicine and rehabilitation Consult date: 09/25/18 Reason for Consult: Comprehensive rehabilitation evaluation Primary Care Provider: UNKNOWN History of Present Illness: Lisa De La Vega is a 63-year-old [id number] male with past medical history significant for COPD and tobacco abuse who was admitted to [facility] 09/23/18 with right upper extremity weakness. Head CT 09/23/18 showed no acute intracranial abnormality. Brain MRI 09/23/18 showed bilateral acute parietal infarcts suggesting an embolic source. Cervical spine MRI showed [id number] broad-based disc osteophyte complex with moderate AP canal stenosis and mild flattening of the cord with mild bilateral foraminal stenosis and slight reversal of cervical lordosis. KAVITA 09/25/18 was normal with no cardiac source of embolism or intracardiac shunt identified. Prothrombotic workup is in process. Review of Systems Limited due to language barrier but patient denies any pain complaints. No shortness of breath. Right hand weakness limited to fingers with decreased coordination. No bowel or bladder incontinence. [facility] History History Provided By: Patient Medical History Medical History Broken arm (Acute) Broken back (Acute) Patient denies medical problems (Acute) Tobacco abuse (Acute) Surgical History Surgical History H/O elbow surgery (Acute) H/O shoulder surgery (Acute) Tobacco History Tobacco Use In Past 30 Days: Yes Smoking Status: Current every day smoker Tobacco Type: Cigars Alcohol History How Often Do You Have a Drink Containing Alcohol: Never Substance Use History Substance History: No History of Abuse Travel History Recent Travel in the [place] Within the Last 8 Weeks: No Recent Travel Out of the Country Within the Last 8 Weeks: No Immunization History Tetanus Immunization: Unsure Medications and Allergies Allergies Allergy/AdvReac Type Severity Reaction Status Date / Time No Known Allergies Allergy Verified 09/24/18 07:08 Home Medications Medication Instructions Recorded Confirmed Type hydrocodone-acetaminophen 1 tab PO TID PRN 09/23/18 09/23/18 History ranitidine HCl mg PO DAILY 09/23/18 History Active Medications: Active Medications Aspirin (Aspirin Chew) 81 mg PO DAILY [facility] Last Admin: 09/25/18 11:02 Dose: 81 mg Atorvastatin Calcium (Lipitor) 20 mg PO HS [facility] Last Admin: 09/24/18 21:22 Dose: 20 mg Dextrose (D50w Vial) 50 ml IV.PUSH UNSCH PRN PRN Reason: PER HYPOGLYCEMIA PROTOCOL Glucagon (Glucagon Inj) 1 mg OTHER UNSCH PRN PRN Reason: for Hypoglycemia Protocol Lactated Ringer's (Lr 1000 Ml Inj) 1,000 mls @ 30 mls/hr IV.CONT .Q24H ONE Stop: 09/26/18 06:29 Sodium Chloride (Ns Inj) 500 mls @ 30 mls/hr IV.CONT .[id number] ONE Stop: 09/25/18 23:09 Insulin Aspart (Novolog Insulin Correctional Sugar Inj) 0 unit SQ [facility]; Protocol Last Admin: 09/25/18 12:54 Dose: 5 unit Sodium Chloride (Ns Flush) 2 ml IV.FLUSH PRN PRN PRN Reason: FLUSH AFTER USING IV ACCESS Sodium Chloride (Ns Flush) 2 ml IV.FLUSH BID [facility] Last Admin: 09/24/18 21:23 Dose: 2 ml Exam Physical Examination Vital Signs / I&O: Vital Signs 09/24/18 20:25 09/25/18 00:20 09/25/18 04:15 Temperature 98 F 97.6 F 98.2 F Pulse Rate 60 62 60 Respiratory Rate 20 20 20 Blood Pressure 153/82 H 139/71 138/68 Pulse Oximetry 95 95 95 09/25/18 08:00 09/25/18 12:00 Temperature 97.8 F 98.1 F Pulse Rate 51 L 74 Respiratory Rate 20 18 Blood Pressure 154/69 H 123/61 Pulse Oximetry 95 95 Intake & Output 09/24/18 09/25/18 09/25/18 18:59 06:59 18:59 Intake Total 1000 / 1000 Balance 1000 / 1000 Weight 109.4 kg Intake: IV 1000 / 1000 NS Inj 1,000 ML @ 70 mls/hr IV. 1000 / 1000 CONT .[id number] [facility] Rx#:[id number] Other: # Voids 1 5 Intake & Output 09/23/18 09/24/18 09/25/18 09/26/18 06:59 06:59 06:59 06:59 Intake Total 1000 / 1000 Balance 1000 / 1000 Weight 101.605 kg 109.4 kg General: No acute distress Respiratory: Lungs CTA, Non-labored respirations, BS equal and Symmetrical expansion Gastrointestinal: Positive bowel sounds and Non-tender Cardiovascular: Normal rate, No edema and Regular rhythm Skin: No rash Musculoskeletal: Swelling (No distal lower extremity edema) Psychiatric: Cooperative and Appropriate mood & affect Neurologic Neurologic: Pupils (PERRLA), EOM (Intact), Facial symmetry (Symmetric), Speech ( Limited Pashto but no dysarthria noted) and Neglect (None noted) Motor: Right Upper Extremity (4+/5 cpc otherwise 5/5), Left Upper Extremity (5/ 5), Right Lower Extremity (5/5) and Left Lower Extremity (5/5) Sensory: Intact to light touch in both upper and lower extremities DTRs: Normal Babinski: Negative Clonus: Negative Results Labs CBC & Chem 7: 09/26/18 11:30 09/23/18 20:30 Imaging Laboratory Results WBC 14.7 th/mm3 (4.0-11.0) H 09/26/18 11:30 RBC 5.15 mil/mm3 (4.50-5.90) 09/26/18 11:30 Hgb 17.3 gm/dL (13.0-17.0) H 09/26/18 11:30 Hct 51.1 % (39.0-51.0) H 09/26/18 11:30 MCV 99.3 fL (80.0-100.0) 09/26/18 11:30 MCH 33.6 pg (27.0-34.0) 09/26/18 11:30 MCHC 33.9 % (32.0-36.0) 09/26/18 11:30 RDW 13.9 % (11.6-17.2) 09/26/18 11:30 Plt Count 221 th/mm3 (150-450) 09/26/18 11:30 MPV 7.7 fL (7.0-11.0) 09/26/18 11:30 Prelim Diff (Auto) Manual diff required 09/23/18 20:30 Neut % (Auto) 70.8 % (16.0-70.0) H 09/26/18 11:30 Lymph % (Auto) 17.6 % (9.0-44.0) 09/26/18 11:30 [place] % (Auto) 10.6 % (0.0-8.0) H 09/26/18 11:30 Eos % (Auto) 0.8 % (0.0-4.0) 09/26/18 11:30 Baso % (Auto) 0.2 % (0.0-2.0) 09/26/18 11:30 Neut # (Auto) 10.4 th/mm3 (1.8-7.7) H 09/26/18 11:30 Lymph # (Auto) 2.6 th/mm3 (1.0-4.8) 09/26/18 11:30 [place] # (Auto) 1.6 th/mm3 (0.0-0.9) H 09/26/18 11:30 Eos # (Auto) 0.1 th/mm3 (0.0-0.4) 09/26/18 11:30 Baso # (Auto) 0.0 th/mm3 (0.0-0.2) 09/26/18 11:30 WBC Differential . 09/26/18 11:30 Seg Neuts % (Manual) 81 % (16-70) H 09/23/18 20:30 Band Neuts % (Manual) 1 % (0-6) 09/23/18 20:30 Lymphocytes % (Manual) 11 % (9-44) 09/23/18 20:30 Monocytes % (Manual) 7 % (0-8) 09/23/18 20:30 Abs Neuts (Manual) 15.2 th/mm3 (1.8-7.7) H 09/23/18 20:30 Differential Comment Auto diff final 09/26/18 11:30 Platelet Estimate Normal (Normal) 09/23/18 20:30 Platelet Morphology Normal (Normal) 09/23/18 20:30 PT 9.8 sec (9.8-11.6) 09/23/18 20:30 INR 1.0 Ratio 09/23/18 20:30 APTT 24.6 sec (23.4-31.7) 09/23/18 20:30 Sodium 138 meq/L (136-145) 09/23/18 20:30 Potassium 4.6 meq/L (3.5-5.1) 09/23/18 20:30 Chloride 108 meq/L (98-107) H 09/23/18 20:30 Carbon Dioxide 22.4 meq/L (21.0-32.0) 09/23/18 20:30 Anion Gap 8 meq/L (5-15) 09/23/18 20:30 BUN 18 mg/dL (7-18) 09/23/18 20:30 Creatinine 1.06 mg/dL (0.60-1.30) 09/23/18 20:30 Estimated GFR 71 mL/min (>89) L 09/23/18 20:30 POC Glucose 113 mg/dl (68-110) H 09/26/18 12:14 Random Glucose 141 mg/dL (74-106) H 09/23/18 20:30 Hemoglobin A1c 6.6 % (4.3-6.0) H 09/24/18 05:50 Calcium 8.6 mg/dL (8.5-10.1) 09/23/18 20:30 Total Bilirubin 0.4 mg/dL (0.2-1.0) 09/23/18 20:30 AST 31 U/L (15-37) 09/23/18 20:30 ALT 25 U/L (12-78) 09/23/18 20:30 Alkaline Phosphatase 78 U/L (45-117) 09/23/18 20:30 Total Creatine Kinase 73 U/L (39-308) 09/23/18 20:30 Troponin I Less than 0.02 ng/mL (0.02-0.05) L 09/23/18 20:30 Total Protein 8.0 g/dL (6.4-8.2) 09/23/18 20:30 Albumin 3.6 g/dL (3.4-5.0) 09/23/18 20:30 Triglycerides 62 mg/dL (42-150) 09/24/18 05:50 Cholesterol 164 mg/dL (120-200) 09/24/18 05:50 LDL Cholesterol, Calc 68 mg/dL (0-99) 09/24/18 05:50 HDL Cholesterol 83.7 mg/dL (40.0-60.0) H 09/24/18 05:50 Cholesterol/HDL Ratio 1.95 Ratio 09/24/18 05:50 Urine Color Yellow (Yellw/Straw) 09/24/18 06:30 Urine Clarity Clear (Clear) 09/24/18 06:30 Urine pH 7.0 (5.0-8.5) 09/24/18 06:30 Ur Specific [place] 1.018 (1.002-1.035) 09/24/18 06:30 Urine Protein Negative mg/dL (Neg-Trace) 09/24/18 06:30 Urine Glucose (UA) 50 mg/dL (Negative) 09/24/18 06:30 Urine Ketones Negative mg/dL (Negative) 09/24/18 06:30 Urine Occult Blood Moderate (Negative) H 09/24/18 06:30 Urine Nitrate Negative (Negative) 09/24/18 06:30 Urine Bilirubin Negative (Negative) 09/24/18 06:30 Urine Urobilinogen Less than 2 mg/dL (Less than 2) 09/24/18 06:30 Ur Leukocyte Esterase Negative (Negative) 09/24/18 06:30 Urine RBC 11 /hpf (0-3) H 09/24/18 06:30 Urine WBC Less than 1 /hpf (0-5) 09/24/18 06:30 Urine Bacteria Rare /hpf (None) H 09/24/18 06:30 Micro UA Comment Culture not ind 09/24/18 06:30 Ur Microscopic Review Not Reportable 09/24/18 06:30 Urine Culture Comments Culture not ind 09/24/18 06:30 Urine Opiates Screen Neg (Neg) 09/24/18 06:30 Ur Barbiturates Screen Neg (Neg) 09/24/18 06:30 Ur Amphetamines Screen Neg (Neg) 09/24/18 06:30 U Benzodiazepines Scrn Neg (Neg) 09/24/18 06:30 Urine Cocaine Screen Neg (Neg) 09/24/18 06:30 U Cannabinoids Screen Neg (Neg) 09/24/18 06:30 Serum Alcohol 155 mg/dL (0-5) H 09/23/18 20:[address] 09/23/18 20:28 CONCLUSION: 1. No acute intracranial abnormalities on head CT. Small infarcts seen bilaterally on MRI performed earlier today are not visualized on head CT. No intracranial hemorrhage. . . Brachial Plexus MRI 09/23/18 20:47 CONCLUSION: 1. Prominent degenerative changes lower cervical spine. 2. Slight motion artifact. 3. Otherwise unremarkable brachioplexus. Cervical Spine MRI 09/23/18 20:47 CONCLUSION: 1. At C5-6-7 broad-based disc osteophyte complex results in moderate AP canal stenosis and mild flattening cord with mild bilateral foraminal stenosis. Slight reversal of cervical lordosis. Head MRI 09/23/18 20:47 CONCLUSION: 1. Bilateral acute parietal lacunar infarcts. This suggests embolic source. Carotid Doppler Study 09/24/18 00:00 CONCLUSION: 1. Mild visible plaque. No stenosis identified in the carotid arteries bilaterally. Chest X-Ray 09/24/18 00:00 CONCLUSION: 1. Coarse interstitial opacities in the lungs most characteristic of scarring or fibrosis. 2. No new areas of consolidation. Assessment and Plan (1) Acute CVA (cerebrovascular accident): Status: Acute Code(s): I63.9 - Cerebral infarction, unspecified Plan Assessment: 1. Bilateral parietal infarcts: Prothrombotic workup in process 2. Dyslipidemia 3. Tobacco use 4. GERD Recommendations: 1. Physical therapy is mobilizing and patient is independent for transfers and gait greater than 150 feet with no device. Would continue to mobilize out of bed to prevent deconditioning 2. Occupational Therapy has evaluated ADLs and patient is modified independent 3. Speech therapy has evaluated swallow and patient is tolerating regular diet with thin liquids 4. Case management is addressing discharge needs. Will follow-up in clinic. Thank you for this consult.
--- NOTE | 2018-09-25 19:21 | P.PNIM ---
Subjective Interval history: 63 yo m admitted w r hand weakness and found to have acute embolic cva. Pt s/p CORTNEY today w no obvious source of emboli pt seen and examined ,wants to go home denies sob, no cough, no sob, no cp, no nv, hand weakness no change, Physical Exam Vital signs: Vital Signs 09/24/18 20:25 09/25/18 00:20 09/25/18 04:15 Temperature 98 F 97.6 F 98.2 F Pulse Rate 60 62 60 Respiratory Rate 20 20 20 Blood Pressure 153/82 H 139/71 138/68 Pulse Oximetry 95 95 95 09/25/18 08:00 09/25/18 12:00 09/25/18 16:00 Temperature 97.8 F 98.1 F 98.1 F Pulse Rate 51 L 74 55 L Respiratory Rate 20 18 18 Blood Pressure 154/69 H 123/61 132/67 Pulse Oximetry 95 95 94 L Intake & Output 09/25/18 09/25/18 09/26/18 06:59 18:59 06:59 Weight 109.4 kg Other: # Voids 5 4 Narrative: wdwn 63yo bosnian m aaox3 nad heart s1s2 reg lungs clear no wrr abd soft nondt pos bs ext no edema no clubbing, muscle wasting around thumbs, pulses intact Results Labs CBC & Chem 7: 09/23/18 20:30 09/23/18 20:30 Assessment and Plan (1) Acute CVA (cerebrovascular accident): Code(s): I63.9 - Cerebral infarction, unspecified Status: Acute Plan ACUTE CVA embolic, tte and cortney neg, carotid doppler neg, cont asa statin and outpt holter monitor, fu w neuro, cardio, heme for hypercoag state. DYSLIPIDEMIA statin LEUKOCYTOSIS reactive due to cva but elevated in past, outpt fu w hematology, also re hypercoag TOBACCO USE - nicotine addiciton - cessation, nicoderm prn CHRONIC PAIN otupt fu GERD - zantac ETOH USE - elevate mcv cont thiamine and folate and etoh cessation DM new dx - start glucophage, diet counseling dc home pending heme and rehab consults, outpt follow up w neuro, heme, cardio for complete workup. would also recommend outpt sleep study and pulm eval re erythrocytosis in addition to heme eval.
[2018-09-26] MEDS: Insulin NovoLOG Aspart Correctional Sugar Inj SQ SCH ×2 (08:29→13:14)
[2018-09-26 12:41] VITALS: BP 130/70; PULSE 54; RESP 20; TEMP 98; O2SAT 95
[2018-09-26 12:49] LABS: Baso % (Auto) 0.2 % (0.0-2.0); Eos # (Auto) 0.1 th/mm3 (0.0-0.4); Eos % (Auto) 0.8 % (0.0-4.0); Hematocrit 51.1 % (39.0-51.0); Hemoglobin 17.3 gm/dL (13.0-17.0); Lymph # (Auto) 2.6 th/mm3 (1.0-4.8); Lymph % (Auto) 17.6 % (9.0-44.0); Mean Corpuscular HGB Conc 33.9 % (32.0-36.0); Mean Corpuscular Hemoglobin 33.6 pg (27.0-34.0); Mean Corpuscular Volume 99.3 fL (80.0-100.0); Mean Platelet Volume 7.7 fL (7.0-11.0); Mono # (Auto) 1.6 th/mm3 (0.0-0.9); Mono % (Auto) 10.6 % (0.0-8.0); Neut # (Auto) 10.4 th/mm3 (1.8-7.7); Neut % (Auto) 70.8 % (16.0-70.0); Platelet Count 221 th/mm3 (150-450); Red Blood Count 5.15 mil/mm3 (4.50-5.90); Red Cell Distribution Width 13.9 % (11.6-17.2); White Blood Count 14.7 th/mm3 (4.0-11.0)
--- NOTE | 2018-09-27 18:09 | P.DS ---
DS: Providers Date of admission: 09/23/18 22:48 Primary care physician: UNKNOWN Consults: 09/23/18 23:05 Consult to Neurology Routine Consulting Provider: Vignesh Stokes Reason for Consultation: Ischemic Stroke Notified:: Service Spoke with:: jordan Date Notified:: 09/24/18 Time Notified:: 00:54 Ordering Provider: JACOB Consult to Rehab Medicine Routine Consulting Provider: Radha Sher Reason for Consultation: Stroke patient, assist with Rehab recommendations Notified:: Service Spoke with:: jordan Date Notified:: 09/24/18 Time Notified:: 00:56 Ordering Provider: JACOB 09/23/18 23:38 HUB Only Consult Order Routine Consulting Provider: Malvin Coombs 09/24/18 10:04 Consult to Cardiology Routine Consulting Provider: Chris Mejia Does the patient have a Plumbing Inspector who follows them?: No Preferred Leg Man:: Dakota Carranza Reason for Consultation: Embolic strokes. KAVITA, loop recorder Notified:: Office Spoke with:: Angela Date Notified:: 09/24/18 Time Notified:: 13:16 Ordering Provider: BARTOLO 09/24/18 10:05 Consult to Hematology Routine Consulting Provider: Jayy Miguel Reason for Consultation: Embolic strokes, exclude hypercoagulable state or cancer history of tobacco use. Notified:: Office Spoke with:: Maryse Date Notified:: 09/24/18 Time Notified:: 12:59 Ordering Provider: BARTOLO 09/25/18 12:31 HUB Only Consult Order Routine Consulting Provider: Malvin Coombs Brief History from admission: 63-year-old male with a history of COPD, tobacco abuse who presents with right upper extremity weakness which began at 1 AM on , and having worsened throughout the day. Patient initially presented with friend who served as a Bosnian cycling instructor in the ER, however not present during my examination.. Patient initially declines cycling instructor, however I went ahead and tried with [employer] for [place]ian cycling instructor, however none available at this time. Patient presents to me the same history as ER, he woke up in the morning with a right-sided weakness which has worsened. He says he is otherwise feeling all right. Denies any chest pain, shortness of breath, nausea , vomiting, diarrhea, constipation. He is asking for coffee. Have deferred family medical history due to translation needed. DS: Diagnosis Discharge Diagnosis (1) Acute embolic stroke: Status: Acute (2) Tobacco use: Status: Acute DS: Summary Patient was admitted after failing of acute embolic CVA and bilateral parietal lacunar regions. Patient was seen and evaluated by neurology, MRI of the cervical spine revealed osteophyte complex with canal stenosis and mild flattening of the cord and bilateral foraminal stenosis of see 5 through C7 with slight reversal of cervical lordosis, carotid ultrasound showed mild plaques but no evidence of stenosis neurology recommended KAVITA to rule out vascular lesion versus proximal aortic atheromatous plaquing is well as can event monitoring versus loop recorder and hematologic dilation to rule out hypercoagulable state and polycythemia. Patient is also noted to be mildly hyperglycemic hemoglobin A1c was 6.6. KAVITA was performed which revealed no cardiac source of embolism or intracardiac shunt with normal ejection fraction of 60-65%. Patient was started on a statin, and metformin. He was instructed on home glucose monitoring and outpatient follow-up with his primary care physician and neurology. Patient was otherwise clinically stable for discharge home and outpatient follow-up. He was also instructed on tobacco cessation. ACUTE CVA embolic, DYSLIPIDEMIA statin LEUKOCYTOSIS reactive TOBACCO USE - nicotine addiction - CHRONIC PAIN GERD ETOH USE DM new dx Time spent discussing smoking cessation with patient: 3 to 10 minutes Time Spent with Patient Total time spent providing and/or coordinating discharge services: Greater than 30 minutes Status at Discharge Functional status at discharge: independent ambulation Overall status at discharge: patient is progressing back to baseline Exam Narrative Exam Narrative: Well-developed well-nourished white male Awake alert oriented no acute distress Heart S1-S2 regular Lungs clear no wheeze no rhonchi Abdomen soft nondistended positive bowel sounds Extremities no clubbing cyanosis no weakness Results Impressions ITS Impressions Head CT 09/23/18 20:28 CONCLUSION: 1. No acute intracranial abnormalities on head CT. Small infarcts seen bilaterally on MRI performed earlier today are not visualized on head CT. No intracranial hemorrhage. . . Brachial Plexus MRI 09/23/18 20:47 CONCLUSION: 1. Prominent degenerative changes lower cervical spine. 2. Slight motion artifact. 3. Otherwise unremarkable brachioplexus. Cervical Spine MRI 09/23/18 20:47 CONCLUSION: 1. At C5-6-7 broad-based disc osteophyte complex results in moderate AP canal stenosis and mild flattening cord with mild bilateral foraminal stenosis. Slight reversal of cervical lordosis. Head MRI 09/23/18 20:47 CONCLUSION: 1. Bilateral acute parietal lacunar infarcts. This suggests embolic source. Carotid Doppler Study 09/24/18 00:00 CONCLUSION: 1. Mild visible plaque. No stenosis identified in the carotid arteries bilaterally. Chest X-Ray 09/24/18 00:00 CONCLUSION: 1. Coarse interstitial opacities in the lungs most characteristic of scarring or fibrosis. 2. No new areas of consolidation. Discharge Plan Discharge Disposition Patient Disposition: Discharge Home Discharge Condition Condition: Good Discharge Order Discharge Orders: Discharge Order (Routine); Ordered 09/25/18 Ordered By: Brandy Meadows Discharge Details Discharge Comment: ok to pr home Physicians Team ED Provider: Kenny Peres Primary Care Provider: UNKNOWN, Attending Provider: Brandy Meadows Other Providers: Vignesh Stokes ; Radha Sher ; Malvin Coombs ; Chris Mejia ; Jayy Miguel Rxs /Orders / Referrals /Forms Prescriptions: New atorvastatin [Lipitor] 10 mg Tablet 20 mg PO HS Qty: 30 RF: 0 aspirin 81 mg Tablet,Chewable 81 mg PO DAILY Qty: 0 RF: 0 metformin [Glucophage] 500 mg Tablet 500 mg PO DAILY Qty: 30 RF: 0 Continue hydrocodone-acetaminophen 5-325 mg Tablet 1 tab PO TID PRN (Reason: Pain) RF: 0 ranitidine HCl 150 mg Tablet PO DAILY RF: 0 Referrals: Chris Mejia MD [Physician] - See Instructions (Please call to schedule appt.) Vignesh Stokes MD [Physician] - See Instructions (Doctor office will call to schedule appt with patient) UNKNOWN, [Primary Care Provider] - See Instructions ([facility] [id number] [facility] [place] [id number] [facility] Jayy Miguel MD [Physician] - See Instructions (Please call to schedule appt.) Discharge Instructions Additional Instructions: follow up with cardiology for 30 event recorder as outpatient Status ED Status: Left Department Discharge Information Discharge Date/Time: 09/26/18 15:53
[2018-09-29 15:55] LABS: Protein C Antigen 86 % (70-150); Protein C Functional 82 % (70 - 150); Protein S Antigen Free 126 % (65 - 160)
[2018-09-30 15:56] LABS: Factor V Leiden Mutation Negative (Negative)
[2018-09-30 23:52] LABS: Factor VIII (8) Activity 108 (50-180)
[2018-10-01 03:50] LABS: Homocysteine (Cardiovascular) 14.4 umol/L (<11.4)
== END 2018-09-26 15:53 | disposition home or self-care (01) | DRG 66 ==
LOC: NEPE 20:01 → NEDA 22:48 → NEDH 09-24 03:42 → N05 09-24 18:08
PROVIDERS: ADMIT Internal Medicine; ATTEND Internal Medicine
DX: D72.829 Elevated white blood cell count, unspecified; K21.9 Gastro-esophageal reflux disease without esophagitis; M19.90 Unspecified osteoarthritis, unspecified site; E78.5 Hyperlipidemia, unspecified; G83.21 Monoplegia of upper limb affecting right dominant side; M25.78 Osteophyte, vertebrae; M48.02 Spinal stenosis, cervical region; J44.9 Chronic obstructive pulmonary disease, unspecified; F17.210 Nicotine dependence, cigarettes, uncomplicated; E11.65 Type 2 diabetes mellitus with hyperglycemia; I63.40 Cerebral infarction due to embolism of unspecified cerebral artery; G89.4 Chronic pain syndrome
CPT/HCPCS: 70450; 70551; 71020; 71046; 72156; 73220; 80053; 80061; 80307; 81001; 81240; 81241; 82131; 82550; 82668; 82948; 82962; 83036; 83090; 84484; 85025; 85240; 85302; 85303; 85306; 85610; 85613; 85730; 86146; 86147; 92526; 92610; 93005; 93225; 93306; 93320; 93325; 93880; 97110; 97162; 97167; 99285; A9585; C8925; G0195; J1100; J1815; J2704; J7030